=== PATIENT | male | born 1940 | race Caucasian/White ===

== ENCOUNTER 2017-04-03 11:57 | Inpatient (IN) | payer MEDICARE ==
[2017-04-03] VITALS (10 sets, daily range): BP systolic 137–159; BP diastolic 58–83; PULSE 59–73; RESP 16–21; O2SAT 94–99
[~2017-04-03] VITALS: Ht 172.7 cm; Wt 96.8 kg
[~2017-04-03 11:57] MED LIST: ASPI-973 PO; CARV12.52 PO; CARV25TA2 PO; DILT120T3 PO; FURO40TA4 PO; GARL10002 PO; INSU100V27 SQ; ISOS30TA PO; LEVO100T6 PO; MULT-1018 PO; OMEG1CAP99 PO; OXYM30SP3 NS; PRV40T PO; SPIR50TA2 PO; ZYL100 PO
--- NOTE | 2017-04-03 12:23 | ED.REPORT ---
HPI-Altered Mental Status Date of Service Apr 03, 2017 ED Provider: Eze Glover MD Patient is a 76 year old male with a history of hypertension, diabetes and [place] who presents to the ED via EMS due to decreased level of consciousness. Associated symptoms include decreased PO intake over the past three days, generalized weakness, headache and vomiting. He denies diarrhea, urinary problems, fever or abdominal pain. Per EMS, the patient has been increasing weak and collapsed on the floor. Limited history due to patient's mental status. Nursing Notes Stated Complaint: DECREASED LOC Chief Complaint: General Complaint Nursing Notes Reviewed: Yes Allergies: Coded Allergies: No Known Allergies (Verified , 01/18/08) Scheduled Allopurinol (Allopurinol) 100 Mg Tablet 200 MG PO QAM Aspirin (Aspirin) 81 Mg Tablet 81 MG PO QAM Carvedilol (Carvedilol) 25 Mg Tablet 25 MG PO QAM CARVEDILOL 25 MG IN AM & 12.5 MG AT HS Carvedilol (Carvedilol) 12.5 Mg Tablet 12.5 MG PO HS CARVEDILOL 25 MG IN AM & 12.5 MG AT HS Diltiazem (Diltiazem) 120 Mg Tablet 120 MG PO QAM Furosemide (Furosemide) 40 Mg Tablet 120 MG PO QAM LASIX 120 MG IN AM & 80 MG IN AFTERNOON Furosemide (Furosemide) 40 Mg Tablet 80 MG PO DAILYWD LASIX 120 MG IN AM & 80 MG IN AFTERNOON Garlic (Garlic) 1,000 Mg Capsule 1,000 MG PO DAILY Insulin Regular, Human (Novolin-R U100 Insulin Vial) 100 Unit/1 Ml Vial 50-60 UNITS SQ BIDWM Levothyroxine (Levothyroxine) 100 Mcg Tablet 100 MCG PO QAM Multivitamin (Multi Vitamin Daily) 1 Each Tablet 1 EACH PO DAILYWD [place]-3 Fatty Acids/Fish Oil (Fish Oil 1,200 mg Softgel) 1 Each Capsule 2 CAPSULE PO QAM Pravastatin (Pravachol) 40 Mg Tab 40 MG PO HS Spironolactone (Spironolactone) 25 Mg Tablet 25 MG PO QAM Scheduled PRN Tramadol (Tramadol) 50 Mg Tablet 25 MG PO Q6H PRN PRN For Pain General Time Seen by MD: 12:19 Chief Complaint Disoriented Hx Obtained From: Patient, EMS Unable to Obtain Hx: Patient condition, Mental status Arrived By: Ambulance Sudden in Onset?: No Onset Occurred: 3 days ago Symptom Duration: Since onset Location: : Head Quality: Painful Severity: Current: Moderate Similar Sx Previous: No Past Medical History Past Medical History [place] Reports: Diabetes mellitus, Hypertension Past Surgical History triple bypass Smoking History Unknown if Ever Smoker Social History Other Social History: Ambulatory Status Independent Review of Systems Review of Systems Note: Limited ROS due to patient's mental status Constitutional: Reports: Weakness - generalized GI: Reports: Vomiting, Denies: Abdominal pain, Diarrhea Neurologic: Reports: Change LOC, Headache, Denies: Bladder dysfunction Complete sys rev & neg: except as marked. Male: Denies Dysuria, Denies Incontinence Physical Exam Initial Vital Signs Vital Signs (First) Date Time Temp Pulse Resp B/P Pulse Ox O2 Delivery O2 Flow Rate FiO2 04/03/17 12:23 36.5 62 21 152/58 99 Room Air Initial VS: Reviewed General/Constitutional: Awake, Alert Head / Eyes: Atraumatic, Normocephalic, PERRL, EOMI Neck: Atraumatic, Supple Respiratory / Chest: Atraumatic, Breath sounds = bilat, No respiratory distress midline thoracotomy scar tachypneic Heart Rate / Rhythm: Positive: Irreg irregular rhythm no gross neuro deficits not oriented to year ENT: Atraumatic Mouth: Positive: Mucous membranes dry Abdomen: Atraumatic, Soft, Non-tender, BS normoactive Skin: Atraumatic, Color NL, No rash, Warm, Dry Upper Extremity / MS: Atraumatic, Neurologic intact, Vascular intact Lower Extremity / Pelvis / MS: Atraumatic, Neurologic intact, Vascular intact Interpretation & Diagnostics Lab Results Interpretation Result Diagram: 04/03/17 1230 04/03/17 1230 Test 04/03/17 12:30 04/03/17 13:00 04/03/17 14:00 White Blood Count 8.9th/mm3 (3.8-10.1) Red Blood Count 4.54mil/mm3 (4.40-5.80) Hemoglobin 15.3g/dL (13.8-17.2) Hematocrit 42.0% (41.0-50.0) Mean Corpuscular Volume 92.5fL (81-100) Mean Corpuscular Hemoglobin 33.7pg (27.0-35.0) Mean Corpuscular Hemoglobin Concent 36.4% (32.0-37.0) Red Cell Distribution Width 15.2% (12.3-15.4) Platelet Count 161bil/L (150-400) Neutrophils (%) (Auto) 81.3% (40-74) Lymphocytes (%) (Auto) 12.0% (14-46) Monocytes (%) (Auto) 5.7% (4-12) Eosinophils (%) (Auto) 0.2% (0-5) Basophils (%) (Auto) 0.1% (0-3) Sodium Level 125mEq/L (134-144) Potassium Level 5.4mEq/L (3.5-5.2) Chloride Level 69mEq/L (97-108) Carbon Dioxide Level 16mmol/L (18-29) Blood Urea Nitrogen 266mg/dL (8-27) Creatinine 7.40mg/dL (0.76-1.27) Estimat Glomerular Filtration Rate 8mL/min (>59) Glucose Level 393mg/dL (60-99) Calcium Level 9.0mg/dL (8.5-10.1) Magnesium Level 3.9mg/dL (1.6-2.6) Total Bilirubin 1.2mg/dL (0.0-1.2) Aspartate Amino Transf (AST/SGOT) 25U/L (0-50) Alanine Aminotransferase (ALT/SGPT) 12U/L (0-44) Alkaline Phosphatase 95U/L (25-160) Total Protein 8.2g/dL (6.4-8.4) Albumin 4.0g/dL (3.4-5.0) Alcohols < 10mg/dL (0-10) Urine Color Yellow (YELLOW) Urine Appearance Turbid (CLEAR,HAZY) Urine pH 5.0 (5.0-8.0) Urine Specific [place] 1.025 (1.003-1.035) Urine Protein 100mg/dL (NEG,TRACE) Urine Glucose (UA) Negativemg/dL (NEGATIVE) Urine Ketones Tracemg/dL (NEGATIVE) Urine Occult Blood Large (NEGATIVE) Urine Nitrite Negative (NEGATIVE) Urine Bilirubin Negative (NEGATIVE) Urine Urobilinogen Normalmg/dL (NORMAL) Urine Leukocyte Esterase Moderate (NEGATIVE) Urine RBC 3-10/hpf (0-2) Urine WBC >50/hpf (0-5) Urine Epithelial Cells Moderate/hpf (NONE-MOD) Urine Crystals None seen (NONE SEEN) Urine Bacteria Many/hpf (NONE-FEW) Urine Hyaline Casts None/lpf (NONE) Urine Granular Casts None seen (NONE SEEN) Urine Waxy Casts None seen (NONE SEEN) Urine Red Blood Cell Casts None seen (NONE SEEN) Urine White Blood Cell Casts None seen (NONE SEEN) Urine Mucus None seen (None Seen) Urine Trichomonas None seen (NONE SEEN) Urine Yeast None (NONE SEEN) Urinalysis Comment None Urine Culture Reflexed Indicated Lactic Acid Level 2.1mmol/L (0.4-2.0) Lab Results Interpretation: Labs from 08/17: Creatinine of 2.49 BUN 52 ECG Interpretation ECG Interpretation: atrial fibrillation rate 72 left anterior fasicular block no acute ST changes Time: 12:47 Interpreted by: ED physician X-Ray Chest Interpretation Chest Xray Interpretation: IMPRESSION: 1. Pulmonary vascular prominence suggesting mild edema. Dictated by: Jeremie Feliciano M.D. on 04/03/2017 at 13:07 Approved by: Jeremie Feliciano M.D. on 04/03/2017 at 13:08 View: Portable, 1 view Interpretation / Wet Read by: Interpret - Radiologist CT Head Interpretation IMPRESSION: 1. Markedly limited study due to motion artifact. 2. No definite acute intracranial abnormality. If clinical concern persists, consider a repeat study when clinically feasible. 3. Chronic white matter small vessel ischemic changes and cerebral volume loss. 4. Extensive thomas-sinus mucosal disease with air-fluid levels suggestive of acute sinusitis. Dictated by: Jeremie Feliciano M.D. on 04/03/2017 at 14:31 Approved by: Jeremie Feliciano M.D. on 04/03/2017 at 14:33 Interpretation / Wet Read by: Interpret - Radiologist CT Abd / Pelvis Interpretation IMPRESSION: 1. No evidence of hydronephrosis. 2. Bilateral renal cortical thinning and extensive ossification of the renal arteries. 3. Bilateral renal cysts. 4. Small right lower lobe indeterminate pulmonary nodules. If clinically indicated, recommend followup dedicated chest CT in 6 months. 5. Mild bladder wall thickening suggesting a nonspecific cystitis or sequelae of chronic bladder outlet obstruction. Mild submucosal fat deposition is also noted in the bladder wall compatible with sequelae of prior inflammatory change. Dictated by: Jeremie Feliciano M.D. on 04/03/2017 at 14:49 Approved by: Jeremie Feliciano M.D. on 04/03/2017 at 14:53 Interpretation / Wet Read by: Interpret - Radiologist Re-Eval/Medical Decision Med Decision/Clinical Course 76 year old male with chronic renal failure presents encephalopathic with acute decrease in renal function and UTI. He is also hyponatremic and has elevated mag and glucose. Blood and urine cultures obtained. NS 1L IV then 100cc/hr until nephrology evaluation. Rocephin 2g IV. Will admit to monitored bed, may need dialysis. Re-Evaluation/Progress : Re-Evaluation/Progress Note: Discussed results and plan for admit. Patient understands and agrees to plan. All questions were addressed. Consultation #1: Referral / Consult Name: Jyoti Jackson MD Consulted With: Nephrology Call Returned at: 13:50 Note: Consult with Dr. Love, who recommends the patient have an abdomen/pelvis CT to rule out obstruction Consultation #2: Referral / Consult Name: JUNE BAUMANN DO Consulted With: Hospitalist Call Returned at: 14:30 Manager Culture: Agrees with eval, Agrees with plan, Accepts admit Counseled Regarding: Diagnosis, Lab results, Need for admission Patient Discharge & Departure Impression: Primary Impression: Acute renal failure Acute renal failure type: unspecified Qualified Code: N17.9 - Acute kidney failure, unspecified Additional Impressions: Altered mental status Altered mental status type: disorientation Qualified Code: R41.0 - Disorientation, unspecified Urinary tract infection Urinary tract infection type: acute cystitis Hematuria presence: without hematuria Qualified Code: N30.00 - Acute cystitis without hematuria Hyponatremia Disposition: ADMITTED TO HOSPITAL Discharge Condition All VS Reviewed: Yes Condition: Stable Referrals: OTHER,PHYSICIAN (PCP) Scribe Attestation Portions of this note were transcribed by Mandy Lim I, Dr. Glover personally performed the history, physical exam and medical decision-making; I reviewed and confirmed the accuracy of the information in the transcribed note. Signed by: Earle Calderón, 04/03/17. Eze Glover MD Apr 03, 2017 12:23 Anne Lim Apr 03, 2017 12:34
[2017-04-03] MEDS ORDERED: 0.9% Sodium Chloride 1,000 ML IV ONE (12:30)
[2017-04-03 13:02] LABS: BASOPHILS % (AUTO) 0.1 % (0-3); EOSINOPHILS % (AUTO) 0.2 % (0-5); MONOCYTES % (AUTO) 5.7 % (4-12); Mean Corpuscular Hemoglobin 33.7 pg (27.0-35.0); Mean Corpuscular Volume 92.5 fL (81-100); NEUTROPHILS % (AUTO) 81.3 % (40-74); Platelet Count 161 bil/L (150-400)
--- NOTE | 2017-04-03 13:09 | DRSVH ---
PROCEDURE: X-RAY CHEST ONE VIEW, PORTABLE ([id number]) INDICATIONS: altered mental status TECHNIQUE: One view of the chest was acquired. COMPARISON: [facility], , CHEST 2VW, 06/21/2011, 8:30. FINDINGS: Surgical changes and devices: Postsurgical changes are redemonstrated in the mediastinum. Lungs and pleura: No pleural effusions or pneumothorax. There is pulmonary vascular prominence sugg esting mild edema. No focal consolidation. Mediastinum: Mediastinal contours appear unchanged. Heart size is enlarged. Bones and chest wall: No suspicious bony lesions. Overlying soft tissues appear unremarkable. IMPRESSION: 1. Pulmonary vascular prominence suggesting mild edema. Dictated by: Jeremie Feliciano M.D. on 04/03/2017 at 13:07 Approved by: Jeremie Feliciano M.D. on 04/03/2017 at 13:08
[2017-04-03 13:34] LABS: Magnesium 3.9 mg/dL (1.6-2.6)
[2017-04-03] MEDS ORDERED: 0.9% Sodium Chloride 1,000 ML IV SCH ×2 (13:55→15:55)
[2017-04-03 14:06] LABS: APPEARANCE,URINE TURBID (CLEAR,HAZY); COLOR,URINE YELLOW (YELLOW); OCCULT BLOOD,URINE LARGE (NEGATIVE); UROBILINOGEN,URINE NORMAL (NORMAL)
[2017-04-03] MEDS ORDERED: cefTRIAXone Inj 2,000 MG in Dextrose 5% Minibag Plus 50 ML IV ONE (14:35)
--- NOTE | 2017-04-03 14:35 | DRSVH ---
PROCEDURE: CT BRAIN WITHOUT CONTRAST ([id number]) INDICATIONS: altered mental status TECHNIQUE: Noncontrast 4.5 mm thick angled axial sections acquired from the foramen magnum to the vertex, with c oronal reformats. COMPARISON: None. FINDINGS: Image quality: There is motion artifact markedly limiting evaluation. CSF spaces: Basal cisterns are patent. No extra-axial fluid collections. The ventricles are symmet kalia in size and shape. There is moderate cerebral volume loss, with resultant ventricular and sulcal prominence. Brain: No definite intracranial hemorrhage, mass, or mass effect. There are subcortical, periventri cular and deep white matter hypodensities consistent with moderate chronic small vessel ischemic kearns ges. There is intracranial internal carotid artery atherosclerosis. Skull and face: Calvarium and visualized facial bones appear intact, without suspicious lesions. Sinuses: Visualized sinuses demonstrate partial mucosal opacification of the frontal, ethmoid, maxil shantelle, and sphenoid sinuses with scattered air-fluid levels. Mastoid air cells are clear. IMPRESSION: 1. Markedly limited study due to motion artifact. 2. No definite acute intracranial abnormality. If clinical concern persists, consider a repeat stud y when clinically feasible. 3. Chronic white matter small vessel ischemic changes and cerebral volume loss. 4. Extensive thomas-sinus mucosal disease with air-fluid levels suggestive of acute sinusitis. Dictated by: Jeremie Feliciano M.D. on 04/03/2017 at 14:31 Approved by: Jeremie Feliciano M.D. on 04/03/2017 at 14:33
--- NOTE | 2017-04-03 14:55 | DRSVH ---
PROCEDURE: CT ABDOMEN AND PELVIS WITHOUT CONTRAST ([id number]) INDICATIONS: acute on chronic renal failure TECHNIQUE: After the administration of oral contrast, 5 mm thick sections acquired from the diaphragms to the sy mphysis. 5 mm coronal and sagittal reformats were performed. For radiation dose reduction, the foll owing was used: automated exposure control, adjustment of mA and/or kV according to patient size. COMPARISON: [facility], CT, CT CHEST ABD PELVIS WO CON, 10/20/2015, 12:55. FINDINGS: Image quality: Excellent. ABDOMEN: Lung bases: There is mild dependent atelectasis and scarring bilaterally in the lung bases there are 2 small indeterminate right lower lobe pulmonary nodules measuring up to 3 mm not definitely seen on the prior study.. Heart size is enlarged. There is prominent coronary artery vascular calcificatio n. There are posterior changes in mediastinum compatible prior CABG. A small hiatal hernia is prese nt. Solid organs: Liver and spleen are normal in size. Gallbladder demonstrates calcified gallstones wi thout wall thickening or pericholecystic fluid. Pancreas is normal in size. There is thickening of the adrenal glands bilaterally without discrete nodules. The kidneys demonstrate renal cortical thin shayne bilaterally without hydronephrosis. There are extensive calcifications of the renal arteries. Nonspecific perinephric stranding is again noted bilaterally. There bilateral renal cysts as well as smaller low-density foci likely representing cysts. Peritoneum and bowel: Bowel loops demonstrate normal wall thickness and caliber. There is colonic d iverticulosis without acute diverticulitis. No free fluid or air. Nodes and vessels: No retroperitoneal or mesenteric adenopathy by size criteria. Aorta and inferior vena cava are normal in size. There is extensive atherosclerotic vascular calcification. Miscellaneous: No ventral hernias. PELVIS: Genitourinary: The urinary bladder is partially distended with mild concentric bladder wall thickenin g. There is submucosal fat deposition within the bladder wall suggesting sequelae of prior inflammat ory changes. Miscellaneous: No inguinal hernias or adenopathy. Bones: No suspicious bony lesions. No vertebral body compression fractures. IMPRESSION: 1. No evidence of hydronephrosis. 2. Bilateral renal cortical thinning and extensive ossification of the renal arteries. 3. Bilateral renal cysts. 4. Small right lower lobe indeterminate pulmonary nodules. If clinically indicated, recommend [facility] dedicated chest CT in 6 months. 5. Mild bladder wall thickening suggesting a nonspecific cystitis or sequelae of chronic bladder out let obstruction. Mild submucosal fat deposition is also noted in the bladder wall compatible with seq uelae of prior inflammatory change. Dictated by: Jeremie Feliciano M.D. on 04/03/2017 at 14:49 Approved by: Jeremie Feliciano M.D. on 04/03/2017 at 14:53
[2017-04-03] MEDS: Lactated Ringer's 1,000 ML IV SCH ×2 (14:56→22:08)
[2017-04-03] MEDS ORDERED: Alum-Mag Hydrox-Simeth 30 mL Suspension PO PRN (15:00)
[2017-04-03] MEDS ORDERED: FURO40TA4 PO (15:01)
[2017-04-03] MEDS ORDERED: SPIR25TA3 PO (15:04)
[2017-04-03] MEDS ORDERED: TRAM50TA2 PO (15:07)
--- NOTE | 2017-04-03 15:42 | NUR ---
Admit Pt arrived to the unit at 1530. He was brought by buster by ED staff and transferred to the bed via slide board. Vital signs and weight were checked. Pt alert and oriented to self only. Appearing drowsy, and nodding off. IV fluids infusing and increased rate to give a 500ml bolus over a hour per MD order. He denies pain. is present at the bedside.
[2017-04-03] MEDS: cefTRIAXone Inj 1,000 MG in Dextrose 5% Minibag Plus 50 ML IV SCH (16:00)
[2017-04-03] MEDS ORDERED: Glucose 40% Oral Gel 15 Gm Tube PO PRN (16:00)
[2017-04-03] MEDS: Diltiazem CD 120 mg ER24 Capsule PO SCH (16:02)
--- NOTE | 2017-04-03 16:02 | PCM.HPMED ---
Subjective Date of Service Apr 03, 2017 Primary Provider: Admitting Physician: Primary Care Physician: Other,Physician Attending Physician: Admit Status: From the Emergency Department, Admit to [facility] Team Chief Complaint: Altered mental status History of Present Illness: Mr. Figueroa is a 76-year-old male with past medical history of chronic kidney disease, diabetes mellitus type II, hyperlipidemia, hypothyroidism, CAD status post triple bypass 2000, thrombocytopenia who presented to the ED via EMS secondary to decreased level of consciousness. Per who was present in the room at time of interview patient has been feeling weaker and sicker over the last month with a progressive decrease in his oral intake. During this time his diet has had to be transitioned to soft foods only which he either does not eat much of or vomits the meal back up. These episodes of emesis have only recently started in the last week but have gotten much worse over the last 3 days. reports patient has vomited 3 times per day over the last 3 days and has not been able to eat or drink anything, she states that the emesis looks brownish almost like "blood". He has also had decreased urinary output over the last month and significantly over the last 3 days, he has not taken any of his regular prescribed occasions including his diuretics. His urine is said to have a dark brown color at home. Patient's also states that he has become more "muddled" in his thought process he is able to answer most questions appropriately during interview though there is a significant time lapse between question and answer which patient's states is very unusual for him. He denies chest pain, shortness of breath, headache or visual disturbances. He does state some abdominal pain and persistent nausea. He has not had a bowel movement in 3 days though denies any diarrhea over the last month. Nephrology was counseled by ED physician, normal saline started as well as abdominal pelvis CT. Antibiotics were started for suspected UTI source. Patient was last seen by his tobacco checkout clerk Dr. Stearns one month ago. Does not know who his primary care physician is states he goes to the [place] is [facility] in [place]. Review of Systems: A comprehensive review of systems was conducted with the patient and found to be negative except as above in the history of present illness. Allergies Coded Allergies: No Known Allergies (Verified , 01/18/08) Home Medications provided current medication list as follows: Allopurinol 100 mg 2 in the morning Carvedilol 12.5 mg 2 in the morning Diltiazem 120 mg daily Furosemide 120 mg in the morning Levothyroxine 100 g daily Pravastatin 40 mg daily Spironolactone 25 mg daily NovoLog insulin sliding scale Detemir insulin sporadically Tramadol one half tablet of 25 mg Additional medication which could not be remembered at time of interview, awaiting [facility] Diabetes mellitus type II Hyperlipidemia Hypothyroidism Coronary artery disease status CABG 2000 Thrombocytopenia Surgical History Bilateral shoulder surgery 1980s Triple-vessel CABG 2000 Reports last colonoscopy 3 years ago Family History Mother at the age of 42 with aneurysm. Father, sister, brother all diabetes mellitus type II Social History Hx Alcohol Use: Yes (sober, quit in does not state he was every heavy drinker) Hx Substance Use: No Hx Tobacco Use: Yes (quit in before that 1 pack per day) Smoking Status: Former Smoker, Unknown if Ever Smoker Living Arrangement: with Family Exam Vital Signs Vital Sign - Last Date Time Temp Pulse Resp B/P Pulse Ox O2 Delivery O2 Flow Rate FiO2 04/03/17 14:54 64 19 137/60 95 Room Air 04/03/17 12:23 36.5 Exam General: Awake and alert lying in hospital bed in no acute distress, well- developed, well-nourished, able to answer questions mostly appropriately. present at bedside HEENT: Normocephalic, atraumatic. External ears without defect. Pupils constricted equal, round, and reactive to light and accommodation. Anicteric sclerae, moist conjunctivae, and no lid lag. Dry mucosa white film on tongue. Neck: Supple with full range of motion. No jugular venous distension. No bruits. Cardiovascular: Irregularly irregular rhythm with regular rate. No murmurs appreciated Pulmonary: Clear to auscultation bilaterally with no crackles, wheezes, or rhonchi. Midline thoracotomy scar Abdomen: Obese abdomen Bowel tones present. Soft, tender to palpation right upper quadrant nondistended. No hepatosplenomegaly or masses appreciated. Extremities: No clubbing, cyanosis, edema. Bilateral shoulder surgery scars well-healed Skin: Normal temperature, poor turgor. Multiple ecchymotic patches on bilateral upper extremities. Neurological: Cranial nerves grossly intact. Psychiatric: Somnolent affect. Alert to year, place and situation. Not alert to date Lab and Diagnostics Result Diagram: 04/03/17 1230 04/03/17 1230 X-Rays, CTs and MRIs . X-RAY CHEST ONE VIEW, PORTABLE IMPRESSION: 1. Pulmonary vascular prominence suggesting mild edema. Dictated by: Jeremie Feliciano M.D. on 04/03/2017 CT BRAIN WITHOUT CONTRAST IMPRESSION: 1. Markedly limited study due to motion artifact. 2. No definite acute intracranial abnormality. If clinical concern persists, consider a repeat study when clinically feasible. 3. Chronic white matter small vessel ischemic changes and cerebral volume loss. 4. Extensive thomas-sinus mucosal disease with air-fluid levels suggestive of acute sinusitis. Dictated by: Jeremie Feliciano M.D. on 04/03/2017 CT ABDOMEN AND PELVIS WITHOUT CONTRAST IMPRESSION: 1. No evidence of hydronephrosis. 2. Bilateral renal cortical thinning and extensive ossification of the renal arteries. 3. Bilateral renal cysts. 4. Small right lower lobe indeterminate pulmonary nodules. If clinically indicated, recommend followup dedicated chest CT in 6 months. 5. Mild bladder wall thickening suggesting a nonspecific cystitis or sequelae of chronic bladder outlet obstruction. Mild submucosal fat deposition is also noted in the bladder wall compatible with sequelae of prior inflammatory change. Dictated by: Jermeie Feliciano M.D. on 04/03/2017 12-lead ECG Atrial fibrillation Left anterior fascicular block No acute ST abnormalities Possible abnormal T wave pathology Assessment & Plan Mr. Figueroa is a 76-year-old male with past medical history of chronic kidney disease, diabetes mellitus type II, hyperlipidemia, hypothyroidism, CAD status post triple bypass 2000, thrombocytopenia who presented to the ED via EMS secondary to decreased level of consciousness, admitted for acute on chronic kidney injury with multiple electrolyte. Hospital day 1 Acute on chronic kidney injury. Present on admission. Ongoing -Most likely secondary to dehydrated state, decreased oral intake and emesis -Dr. Love nephrology consultation from ED, continue fluid hydration, HD cath placement -Continue allopurinol -Held diuretics Atrial fibrillation. Present admission, unknown chronicity Ongoing. -EKG shows atrial fibrillation, confirmed with physical exam -Currently rate controlled in the 60s with normotensive blood pressure -Continue Coreg 12.5 at bedtime, 25 mg every morning -Continue diltiazem Hyponatremia, POA. Ongoing -Normal saline 100 mL per hour Electrolyte abnormalities, POA. Ongoing -Nephrology following, HD cath placement today followed by HD -Continue to monitor Urinary tract infection, POA. Ongoing -Appropriate cultures and serologies pending -Continue ceftriaxone pending cultures -Continue to monitor Possible upper GI bleed, POA. Ongoing -Patient's reports 1-2 brown-colored emesis -No signs of bleeding -Protonix twice a day -Continue to monitor, consider GI consult if Sx develop -Nothing by mouth, advance diet if no manifestation of symptoms Lactic acidosis, POA. Ongoing -Likely secondary to dehydrated state as above -Continue to monitor Diabetes mellitus type II, POA. Ongoing -Hold home meds -A1c pending -Correctional scale Hypothyroidism, POA. Ongoing -Continue home levothyroxine CODE STATUS: Patient is DNR/DNI discussed with patient and at bedside. Patient Status: Patient was admitted under inpatient status with expected length of stay greater than two midnights due to severity of presenting symptoms , risk of adverse event, and complexity of treatment plan. GI Prophylaxis: Proton Pump Inhibitor VTE Prophylaxis: SCDs Resuscitation Status: DNR/DNI:Do Not Resuscitate/Intubate Attending Statement The patient was seen and examined together with Dr. Morris on 04/03/2017 and I agree with the history, exam and plan as outlined in the note above. . JUNE MORRIS DO Apr 03, 2017 14:59 Artem Baron MD Apr 03, 2017 16:22
[2017-04-03] MEDS ORDERED: Dextrose 10% 250 ML IV PRN ×2 (16:15→21:15)
[2017-04-03] MEDS ORDERED: Pantoprazole 4 mg/mL 10 mL Inj IVPUSH SCH (16:30)
[2017-04-03] MEDS: Pantoprazole 40 mg ER24 Tablet PO SCH (16:30)
[2017-04-03] MEDS: Insulin LISPRO 300 Unit/3 mL Inj SUBQ SCH ×2 (17:30→22:07)
--- NOTE | 2017-04-03 17:36 | CONS ---
[address] [address] CONSULTATION REPORT PATIENT: ALONDRA OLMOS : 1940 MR#: [id number] ADMIT: 04/03/2017 JOB ID: [id number] DATE OF SERVICE: 04/03/2017 REQUESTING PHYSICIAN: Dr. Artem Baron. REASON FOR CONSULTATION: Management of acute kidney injury. CHIEF COMPLAINT: Altered mental status and weakness. PRESENT ILLNESS: This is a 76-year-old, male with significant past medical history of longstanding type 2 diabetes complicated by neuropathy, nephropathy and retinopathy, hypertension, CHF, coronary artery disease, status post CABG, dyslipidemia, history of severe thrombocytopenia who presented to the hospital due to worsening malaise and altered mental status. The patient is not able to give me a meaningful history. I have obtained history from his . According to his , the patient has had poor appetite over the past one month. Over the past three days, the patient has not eaten anything. He has poor fluid intake. He has had recurrent nausea, vomiting over the past three days as well. She reports that he feels cold easily but no subjective fever. The vomitus looks like brownish secretion, but no gross blood noticed. His reported that his urine output has been low over the past three days as well. She reports discolorations of urine which was brownish. His also reported that his mental status has been declining over the past three days. Today, he became more confused and not coherent. The initial blood work showed WBC of 8.9, hemoglobin of 15.3, BUN of 266 and creatinine of 7.4. Sodium of 125, potassium of 5.4. The patient received IV fluid normal saline to 1 L in the emergency department. His initial vitals were within normal limits. Blood pressure was 152/58. His pulse ox was 99% on room air. The CT with contrast did not show any hydronephrosis, but showed bilateral renal cortical thinning. The UA revealed over 50 WBCs, 3-10 RBCs, many bacteria. Of note, the patient has been on Lasix and Aldactone for the CHF. He is the patient of Dr. Wilkerson. Last visit with him was about a month ago and he was told to return to the clinic in six weeks. According to his , he has stage 3 kidney disease related to diabetes. The patient reports no history of NSAID use. PAST MEDICAL HISTORY: 1. Longstanding type 2 diabetes complicated by nephropathy, retinopathy, and neuropathy. 2. Hypertension. 3. Coronary artery disease, status post CABG. 4. History of diabetic foot ulcers. 5. Gout. 6. Dyslipidemia. 7. Status post left toe amputation. 8. History of severe thrombocytopenia, resolved. 9. History of CHF. Last echocardiogram reported in our system was in 2010. His ejection fraction was 25% to 30%. We do not have recent echocardiogram available. PAST SURGICAL HISTORY: 1. Status post CABG in 2000. 2. Bilateral shoulder surgery in . 3. Status post left big toe amputation. FAMILY HISTORY: No kidney disease in the family. Positive for diabetes in the family. Mother at age 42 with aneurysm. SOCIAL HISTORY: He is a remote smoker. He has quit drinking and smoking for at least 30 years. ALLERGIES: No known drug allergies. MEDICATION: 1. Allopurinol. 2. Aspirin. 3. Carvedilol. 4. Diltiazem. 5. Furosemide. 6. Garlic. 7. Levothyroxine. 8. Pravastatin. 9. Spironolactone. 10. Tramadol. REVIEW OF SYSTEMS: Unable to obtain due to decline in mental status. PHYSICAL EXAMINATION: Vitals: Temperature 36.5, respiratory 18, blood pressure 156/72, O2 sat 99% on room air. General appearance: Drowsy but arousable. Responsive to painful stimuli. HEENT: Atraumatic, dry mucous membranes. No JVD. No lymphadenopathy. No thyroid enlargement. Heart: Regular rate, rhythm. Normal S1, S2. Distant heart sounds. Lungs decreased breath sounds at bases. No wheezing. No rhonchi. Gynecomastia noted. Abdomen is soft, active bowel sounds. Obese, nontender, nondistended. No hepatosplenomegaly. Extremities: No significant lower extremity swelling. Poor dorsalis pedis pulses. LABORATORY: Sodium 125, potassium 5.4, chloride 69, bicarb 16, BUN 266, creatinine 7.4, lactic acid 2.1. ASSESSMENT: 1. Acute kidney injury superimposed CKD-3 secondary to prolonged prerenal azotemia leading to acute tubular necrosis (ATN), and complicated urinary tract infection. He has a very high BUN. We will order stool occult blood to rule out gastrointestinal bleed. I will order a CPK level to rule out rhabdomyolysis. 2. Electrolyte disturbance including hyponatremia, hyperkalemia and metabolic acidosis secondary to severe renal insufficiency. 3. Persistent nausea, vomiting. 4. Complicated urinary tract infection. 5. Intravascular volume depletion. 6. History of longstanding type 2 diabetes complicated by neuropathy, nephropathy and retinopathy. 7. History of coronary artery disease. 8. History of congestive heart failure. PLAN: 1. Will check CPK level. 2. Check a stool occult blood. 3. Continue IV hydration. 4. We will arrange for an urgent hemodialysis. 5. Hold diuretics. 6. Repeat echocardiogram. Thank you for allowing me to participate in the care of your patient. We will monitor along with you. JEROME
[2017-04-03 17:47] LABS: INR 1.13 ratio
[2017-04-03 18:08] LABS: TROPONIN T 0.097 ug/L (0.0-0.011)
--- NOTE | 2017-04-03 18:32 | PCM.PROC ---
Procedure Note Date of Service: Apr 03, 2017 Pre Procedure Diagnosis: TALHA Post Procedure Diagnosis: TALHA Procedure: Temporary HD catheter placement Indication for Procedure: Emergency HD Procedural Analgesia: Local anesthesia Procedure Details: Consent: Detailed explanation of the procedure, treatment options, risks including but not limited to infection and bleeding, and benefits were explained to his . A written informed consent was obtained. Technique: A time out was preformed identifying the correct procedure, the correct location with the nursing staff. The right neck was prepped with 2% chlorhexidine and draped with a full length sterile sheet in the usual fashion. 1% lidocaine was administered subcutaneously for local anesthesia. The right internal jugular vein was accessed under ultrasound guidance with an 18 gauge thin wall needle. A Mahurkar catheter was inserted via the seldinger technique. Blood was withdrawn from all lumens and flushed with normal saline. The catheter was sutured in place and a sterile dressing was applied over the site prior to removal of drapes. The patient tolerated the procedure well and there were no complications. Chest x ray was obtained. No immediate complications identified. Catheter can be used. EBL: 5 mL. Complication: None. Jyoti Jackson MD Apr 03, 2017 18:32
--- NOTE | 2017-04-03 19:10 | DRSVH ---
PROCEDURE: X-RAY CHEST ONE VIEW, PORTABLE ([id number]) INDICATIONS: LINE PLACEMENT TECHNIQUE: One view of the chest was acquired. COMPARISON: [facility], CR, CHEST 2VW, 06/21/2011, 8:30. [facility], CR, XR CHEST 1VW (PORTABLE), 04/03/2017, 12:38. FINDINGS: Surgical changes and devices: There is in the right internal jugular intravenous catheter with the ti p at the cavoatrial junction. Postsurgical changes are redemonstrated in the mediastinum Lungs and pleura: There is increased opacity at the left base suggestive of a left pleural effusion, consolidation, or atelectasis. Right lung is clear. No evidence of pneumothorax. Mediastinum: Mediastinal contours appear unchanged. Heart size is enlarged. Bones and chest wall: No suspicious bony lesions. Overlying soft tissues appear unremarkable. IMPRESSION: 1. No evidence of pneumothorax. 2. Increased left basilar opacity suggestive of pleural effusion, consolidation, or atelectasis. Dictated by: Jeremie Feliciano M.D. on 04/03/2017 at 18:47 Approved by: Jeremie Feliciano M.D. on 04/03/2017 at 19:08
--- NOTE | 2017-04-03 21:10 | NUR ---
Dialysis note: S/P catheter placement 2 hrs tx Zero net UF Right temp catheter, dsg changed, sutures intact Hepatitis serologies drawn Pls see DTR for VS details Qb 250 Heparin prime given O2 @ 2L via NC on during the tx Tolerated tx, slept at intervals Catheter flushed, heparin dwelled and secured Stable condition at end of tx Report given to Taina DIEGO
[2017-04-04] VITALS (10 sets, daily range): BP systolic 116–142; BP diastolic 59–77; PULSE 57–75; RESP 16–20; O2SAT 94–96
--- NOTE | 2017-04-04 03:14 | NUR ---
HD//Mentation Patient was receiving HD at 1900 when received report, patient transferred back into room 2019 about 0, tolerated HD well, scheduled for HD in AM per report, A&Ox2 to person and place, did not know date, resting in bed this shift but unable to fall asleep, calm and cooperative, NPO, patient stated he isn't too tired, repositioned Q2H, 300ml out from urinary catheter, at bedside sleeping on sofa, no distress noted, VSS. Addendum: 04/04/17 at 0319 by LIZY ALMEIDA RN Amended: Links added.
[2017-04-04 04:46] LABS: BASOPHILS % (AUTO) 0.1 % (0-3)
[2017-04-04 04:49] LABS: EOSINOPHILS % (AUTO) 0.8 % (0-5); MONOCYTES % (AUTO) 9.8 % (4-12); Mean Corpuscular Hemoglobin 33.5 pg (27.0-35.0); Mean Corpuscular Volume 93.1 fL (81-100); NEUTROPHILS % (AUTO) 82.2 % (40-74); Platelet Count 136 bil/L (150-400)
[2017-04-04] MEDS: Insulin LISPRO 300 Unit/3 mL Inj SUBQ SCH ×4 (08:23→21:30)
[2017-04-04] MEDS: Pantoprazole 40 mg ER24 Tablet PO SCH ×2 (08:23→16:53)
--- NOTE | 2017-04-04 09:39 | NUR ---
Transfer for dialysis Patient transferred to [facility] for dialysis. Report received from Hanh Yoo RN. kit planner at bedside controlling leaking insertion site of tunnel cath. plumbing technician notified.
--- NOTE | 2017-04-04 10:47 | PCM.PNNEPH ---
Subjective Date of Service Apr 04, 2017 Subjective First HD started last night, no complication during HD. (+) oozing and blood clot at the catheter site. Bleeding stopped. He is seen during 2nd HD today. He reported that he is feeling the same. U/cx grew GNR. Exam Vital Signs Vital Sign - Last Date Time Temp Pulse Resp B/P Pulse Ox O2 Delivery O2 Flow Rate FiO2 04/04/17 08:57 70 04/04/17 08:00 36.8 16 142/68 95 04/04/17 08:00 Supplement Oxygen Intake and Output 04/03/17 04/03/17 04/04/17 Cumulative From/Thru 15:00 23:00 07:00 04/03/17 12:23 - 04/04/17 05:44 Intake Total 1035 ml 600 ml 0 ml 1635 ml Output Total 0 ml 300 ml 300 ml Balance 1035 ml 600 ml -300 ml 1335 ml Intake Oral 0 ml 0 ml 0 ml IV Total 1035 ml 600 ml 1635 ml Output Urine Total 0 ml 300 ml 300 ml Ultrafiltrate 0 ml 0 ml Exam General appearance: Weak, more alert today and awake. HEENT: Atraumatic, dry mucous membranes. No JVD. No lymphadenopathy. No thyroid enlargement. Heart: Irregular rate, rhythm. Normal S1, S2. Distant heart sounds. Lungs decreased breath sounds at bases. No wheezing. No rhonchi. Gynecomastia noted. Abdomen is soft, active bowel sounds. Obese, nontender, nondistended. No hepatosplenomegaly. Extremities: No significant lower extremity swelling. Poor dorsalis pedis pulses. s/p left first toe amputation. Skin: Temporary right IJ HD catheter in place, no active bleeding. Lab and Diagnostics Result Diagram: 04/04/1743904/04/17439 X-Rays, CTs and MRIs . X-RAY CHEST ONE VIEW, PORTABLE IMPRESSION: 1. Pulmonary vascular prominence suggesting mild edema. Dictated by: Jeremie Feliciano M.D. on 04/03/2017 CT BRAIN WITHOUT CONTRAST IMPRESSION: 1. Markedly limited study due to motion artifact. 2. No definite acute intracranial abnormality. If clinical concern persists, consider a repeat study when clinically feasible. 3. Chronic white matter small vessel ischemic changes and cerebral volume loss. 4. Extensive thomas-sinus mucosal disease with air-fluid levels suggestive of acute sinusitis. Dictated by: Jeremie Feliciano M.D. on 04/03/2017 CT ABDOMEN AND PELVIS WITHOUT CONTRAST IMPRESSION: 1. No evidence of hydronephrosis. 2. Bilateral renal cortical thinning and extensive ossification of the renal arteries. 3. Bilateral renal cysts. 4. Small right lower lobe indeterminate pulmonary nodules. If clinically indicated, recommend followup dedicated chest CT in 6 months. 5. Mild bladder wall thickening suggesting a nonspecific cystitis or sequelae of chronic bladder outlet obstruction. Mild submucosal fat deposition is also noted in the bladder wall compatible with sequelae of prior inflammatory change. Dictated by: Jeremie Feliciano M.D. on 04/03/2017 12-lead ECG Atrial fibrillation Left anterior fascicular block No acute ST abnormalities Possible abnormal T wave pathology Plan Impression ASSESSMENT: 1. Acute kidney injury superimposed CKD-3 secondary to ATN. 2.5 hr, BFR 250, DFR 500, 2K, 35HCO3. Revaclear, Right IJ, UF 500 ml. 2. Electrolyte disturbance including hyponatremia, hyperkalemia and metabolic acidosis secondary to severe renal insufficiency. 3. Persistent nausea, vomiting related to uremia and infection. 4. Complicated urinary tract infection. 5. Intravascular volume depletion. 6. History of longstanding type 2 diabetes complicated by neuropathy, nephropathy and retinopathy. 7. History of coronary artery disease. 8. History of congestive heart failure. 9. Atrial fibrillation. PLAN: 1. Echo pending. 2. Pending finalized culture. 3. Continue IV abx. 4. Next HD with UF ~ 0.5-1L in am. 5. Start renal diet. 6. D/c IVF. Jyoti Jackson MD Apr 04, 2017 10:47
[2017-04-04] MEDS: Lactated Ringer's 1,000 ML IV SCH ×3 (10:56→20:31)
--- NOTE | 2017-04-04 12:00 | NUR ---
Dialysis note: 2 1/2 hrs tx 500 ml net UF Right temp catheter, bleeding from exit site, Dr Love notified, dsg changed, no s/s of infection noted and sutures intact, pressure dsg and sandbag applied Pls see DTR for VS details Qb 250 Heparin prime only given O2 @ 2L via NC on during the tx Tolerated tx, slept at intervals Catheter flushed, heparin dwelled and secured Stable condition at end of tx Report given to [place] DIEGO
--- NOTE | 2017-04-04 12:32 | NUR ---
Transfer to 2019 Patient completed dialysis, see dialysis flow sheet for details. Report called to Hanh Yoo RN. Awaiting transport. Addendum: 04/04/17 at 1321 by ADRIANA RING RN Transported without incidence.
[2017-04-04] MEDS: Diltiazem CD 120 mg ER24 Capsule PO SCH (14:28)
--- NOTE | 2017-04-04 15:58 | NUR ---
Social Work Note: Initial Assessment Data& Assessment: EMR reviewed. COUNTY PROGRAM TECHNICIAN met with pt and pt at bedside to discuss discharge planning, COUNTY PROGRAM TECHNICIAN Role explained and discharge planning checklist packet provided. Clyde Figueroa is a 76 year old male admitted on 04/03/2017 acute renal failure. Nephrology is following. Pt has Medicare insurance coverage [facility], pt is not service connected. Pt lives in [place] with his spouse and is independent with all ADL's at baseline. Pt uses a [employer] and drives at baseline. He does not have HH hx but has been to [facility] three years ago. Pt does not have [facility] insurance. COUNTY PROGRAM TECHNICIAN requested a copy of pt's completed DPOA/AD paperwork which he states he has on file with the [facility]. MD does not identify any concerns for pt capacity for self care at this time. Pt and pt deny any needs at this time. COUNTY PROGRAM TECHNICIAN to continue to follow if any pt needs or MD orders arise. Plan: Anticipated discharge home via POV when medically ready. Pt and pt deny any needs at this time. COUNTY PROGRAM TECHNICIAN to continue to follow if any pt needs or MD orders arise. MELVIN Valente Addendum: 04/04/17 at 1608 by GENO CEJA Amended: Links added.
--- NOTE | 2017-04-04 16:16 | DRSVH ---
[facility] [address] [place] [address] Echocardiogram Report Name: ALONDRA OLMOS EStudy Date: 04/04/2017 Mazin t: 70 in Hospital Exam Location: [facility] Weigh t: 322 lb Gender: Male BSA: 2.5 m2 : 1940 Age: 76 yrs BP: 1 35/59 mmHg Reason For Study: Congestive Heart Failure, CAD, SEPSIS Ordering Physician: Shade Lawist Performed By: Siddharth Ram Referring Physician: JOYCELYN KIM Interpretation Summary The left ventricle is mild-moderately dilated. The ejection fraction is estimated to be 15-20%. Compared to the prior exam, the left ventricular function is reduced. The right ventricle is moderately dilated. Right ventricular systolic function is mild to moderately reduced. There is severe mitral regurgitation. Compared to the prior echo study, there has been an increase in the severity of mitral regurgitation. There is moderate tricuspid regurgitation. Compared to the prior echo exam, there has been an increase in TR severity. The right ventricular systolic pressure is estimated at 49 mmHg assuming a right atrial pressure of 8 mm Hg. Compared to the prior echo exam, there has been an increase in the severity of pulmonary hypertension. There is moderate pulmonary hypertension. Procedure: A two-dimensional transthoracic echocardiogram with color flow and Doppler was performed. The study quality was technically adequate. A contrast injection of Definity was performed to improve assessment of LV function. The patient was in atrial fibrillation with heart rates between 57- 84 bpm during the exam. Left Ventricle: There is normal left ventricular wall thickness. The left ventricle is mild-moderately dilated. There is no thrombus. The ejection fraction is estimated to be 15-20%. Compared to the prior exam, the left ventricular function is reduced. Except anterolateral and the posterolateral wall which has relatively preserved contractility rest of the LV segments are akinetic to severely hypokinetic. Compared to the prior exam, the left ventricular wall motion has not changed. Diastolic function could not be accurately assessed due to atrial fibrillation. Right Ventricle: The right ventricle is moderately dilated. Right ventricular systolic function is mild to moderately reduced. Atria: Both atria are severely dilated. Both atria have remained unchanged in size since the prior echo exam. The interatrial septum is intact with no evidence for an atrial septal defect. Mitral Valve: The mitral valve leaflets appear mildly thickened, but open well. There is mild mitral annular calcification. There is severe mitral regurgitation. Compared to the prior echo study, there has been an increase in the severity of mitral regurgitation. Aortic Valve: The aortic valve is trileaflet. The aortic valve opens well. There is mild aortic valve sclerosis. There is no aortic valve stenosis. No aortic regurgitation is present. Tricuspid Valve: The tricuspid annulus is dilated. There is moderate tricuspid regurgitation. The right ventricular systolic pressure is estimated at 49 mmHg assuming a right atrial pressure of 8 mm Hg. Compared to the prior echo exam, there has been an increase in TR severity. Compared to the prior echo exam, there has been an increase in the severity of pulmonary hypertension. There is moderate pulmonary hypertension. Pulmonic Valve: The pulmonic valve is not well seen, but is grossly normal. There is mild to moderate pulmonic regurgitation. Great Vessels: The aortic root is normal size. The ascending aorta is mildly enlarged. The pulmonary artery is normal size. The IVC is dilated (diameter is greater than 2.1 cm) yet it collapses greater than 50% with a sniff. This suggests a right atrial pressure of 8 mm Hg. Pericardium/ Pleura There is no pericardial effusion. There is an anterior echo-free space consistent with a fat pad. There is no pleural effusion. MMode/2D Measurements & Calculations LVIDd: 6.2 cm RA long axis LVOT diam LVIDs: 4.8 cm LA A2 area: 31.1 cm FS: 22.3 % LA A4 area: 33.1 cm RA area Ao root diam EPSS: 1.6 cm LA length (vol): 7.2 cm IVSd: 0.84 cm LA vol: 121.1 ml : 27.4 cm asc Aorta LVPWd: 1.2 cm LA vol index RA vol: 99.5 mlDiam: 3.8 cm RA : 39.8 mm2 IVC diam: 2.4 cm LV burks. diameter/BSA LV sys. diameter/BSA RVD1 (basal) (cm/m^2): 2.5 (cm/m^2): 1.9 Doppler Measurements & Calculations Ao V2 max: 88.7 cm/secMV E max luan Med Peak E' Luan TR max luna Ao max P.2 mmHg : 80.0 cm/sec : 319.7 cm/sec Ao mean P.8 mmHg E/E' med: 21.1 TR max PG LVOT Max Luan MR ERO: 0.37 cm2 Lat Peak E' Luan : 41.0 mmHg : 68.0 cm/sec PA V2 max E/E' lat: 22.4 : 71.4 cm/sec ALYSON(I,D): 2.1 cm E/e' average: 21.7 PA mean PG sev ratio: 0.70 : 1.1 mmHg Ao V2 mean LV V1 max PG MR flow rate PA V2 mean : 64.8 cm/sec : 48.0 cm/sec Ao V2 VTI: 15.4 cm LV V1 VTI : 179.0 cm3/sec : 10.8 cm MR PISA radius ALYSON(V,D): 2.3 cm2 ALYSON indexed to BSA (cm^2/m^2): 0.84 Reading Physician:ISA
[2017-04-04] MEDS: cefTRIAXone Inj 1,000 MG in Dextrose 5% Minibag Plus 50 ML IV SCH (16:53)
--- NOTE | 2017-04-04 20:26 | PCM.PNMED ---
Subjective Date of Service Apr 04, 2017 Subjective Subjective: Patient lying in bed on exam, states that he continues to feel well today. Events Overnight: No acute events overnight. ROS: Denies fever/chills, nausea/vomiting, headache, weakness, abdominal pain, chest pain, shortness of breath, increased swelling in hands or feet. Exam Vital Signs Vital Sign - Last Date Time Temp Pulse Resp B/P Pulse Ox O2 Delivery O2 Flow Rate FiO2 04/04/17 20:01 Supplement Oxygen 04/04/17 20:01 36.7 61 18 117/61 96 Intake and Output 04/03/17 04/03/17 04/04/17 Cumulative From/Thru 15:00 23:00 07:00 04/03/17 12:23 - 04/04/17 05:44 Intake Total 1035 ml 600 ml 0 ml 1635 ml Output Total 0 ml 300 ml 300 ml Balance 1035 ml 600 ml -300 ml 1335 ml Intake Oral 0 ml 0 ml 0 ml IV Total 1035 ml 600 ml 1635 ml Output Urine Total 0 ml 300 ml 300 ml Ultrafiltrate 0 ml 0 ml Exam General: No acute distress, well-developed, well-nourished Head: Normocephalic, atraumatic. External ears without defect. Eyes: Pupils equal, round, and reactive to light and accommodation. Anicteric sclerae, moist conjunctivae. Neck: Normal range of motion, no lymphadenopathy noted Cardiovascular: Irregularly irregular rhythm with no murmurs, rubs, or gallops appreciated Pulmonary: Clear to auscultation bilaterally with no crackles, wheezes, or rhonchi. Normal respiratory effort with no use of accessory muscles. Abdomen: Bowel tones present. Soft, right upper quadrant tenderness, nondistended. Extremities: No clubbing, cyanosis, edema Skin: Normal temperature, turgor, and texture; no rash, ulcers, or subcutaneous nodules appreciated. Neurological: Cranial nerves grossly intact. Reflexes, coordination, and sensory function within normal limits. Normal muscle strength, tone, and bulk. Psychiatric: Normal mood and affect. Alert and oriented to person, place, and time IVs and Medications Medications Reviewed: Medications were reviewed in detail Lab and Diagnostics Result Diagram: 04/04/1743904/04/17439 X-Rays, CTs and MRIs . X-RAY CHEST ONE VIEW, PORTABLE IMPRESSION: 1. Pulmonary vascular prominence suggesting mild edema. Dictated by: Jeremie Feliciano M.D. on 04/03/2017 CT BRAIN WITHOUT CONTRAST IMPRESSION: 1. Markedly limited study due to motion artifact. 2. No definite acute intracranial abnormality. If clinical concern persists, consider a repeat study when clinically feasible. 3. Chronic white matter small vessel ischemic changes and cerebral volume loss. 4. Extensive thomas-sinus mucosal disease with air-fluid levels suggestive of acute sinusitis. Dictated by: Jeremie Feliciano M.D. on 04/03/2017 CT ABDOMEN AND PELVIS WITHOUT CONTRAST IMPRESSION: 1. No evidence of hydronephrosis. 2. Bilateral renal cortical thinning and extensive ossification of the renal arteries. 3. Bilateral renal cysts. 4. Small right lower lobe indeterminate pulmonary nodules. If clinically indicated, recommend followup dedicated chest CT in 6 months. 5. Mild bladder wall thickening suggesting a nonspecific cystitis or sequelae of chronic bladder outlet obstruction. Mild submucosal fat deposition is also noted in the bladder wall compatible with sequelae of prior inflammatory change. Dictated by: Jeremie Feliciano M.D. on 04/03/2017 12-lead ECG Atrial fibrillation Left anterior fascicular block No acute ST abnormalities Possible abnormal T wave pathology Assessment & Plan Mr. Figueroa is a 76-year-old male with past medical history of chronic kidney disease, diabetes mellitus type II, hyperlipidemia, hypothyroidism, CAD status post triple bypass 2000, thrombocytopenia who presented to the ED via EMS secondary to decreased level of consciousness, admitted for acute on chronic kidney injury with multiple electrolyte. Acute on chronic kidney injury. Present on admission. Ongoing -Most likely secondary to dehydrated state, decreased oral intake and emesis -Dr. Love nephrology consultation from ED, HD cath placement on 04/03, temporary dialysis initiated 04/04 -Continue allopurinol -Hold diuretics Atrial fibrillation. Present admission, unknown chronicity Ongoing. -EKG shows atrial fibrillation, confirmed with physical exam -Currently rate controlled in the 60s with normotensive blood pressure -Continue Coreg 12.5 at bedtime, 25 mg every morning -Continue diltiazem -Discuss outpatient anticoagulation Electrolyte abnormalities, POA. Ongoing -Nephrology following, HD cath placement 04/03 followed by HD on 04/04 -Continue to monitor with morning labs Urinary tract infection, POA. Ongoing -Culture shows gram-negative rods, likely Escherichia coli sensitivities pending -Continue ceftriaxone pending cultures -Continue to monitor Possible upper GI bleed, POA. Ongoing -Patient's reports 1-2 brown-colored emesis -No signs of bleeding -Protonix twice a day -Continue to monitor, consider GI consult if Sx develop -Advance diet as tolerated Lactic acidosis, POA. Resolved -Likely secondary to dehydrated state as above -Continue to monitor Hyponatremia, POA. Resolved -Normal saline discontinued Diabetes mellitus type II, POA. Ongoing -Hold home meds -A1c 8.5 -Correctional scale Hypothyroidism, POA. Ongoing -Continue home levothyroxine CODE STATUS: Patient is DNR/DNI discussed with patient and at bedside. Disposition: Patient will likely require 1-2 more nights of inpatient stay prior to discharge home. GI Prophylaxis: Proton Pump Inhibitor VTE Prophylaxis: SCDs VTE Mechanical Devices: Intermittant Pneumatic CD Resuscitation Status: DNR/DNI:Do Not Resuscitate/Intubate Attending Statement The patient was seen and examined together with Dr. New on 04/04/17 and I have added additional information to the note above. Joe New DO Apr 04, 2017 20:26 Nereida Beaulieu DO Apr 10, 2017 15:22
[2017-04-05] VITALS (9 sets, daily range): BP systolic 111–149; BP diastolic 54–94; PULSE 51–76; RESP 16–20; O2SAT 94–98
[2017-04-05 03:39] LABS: BASOPHILS % (AUTO) 0 % (0-3); EOSINOPHILS % (AUTO) 1.5 % (0-5); MONOCYTES % (AUTO) 12.2 % (4-12); Mean Corpuscular Hemoglobin 33.5 pg (27.0-35.0); Mean Corpuscular Volume 96.2 fL (81-100); NEUTROPHILS % (AUTO) 72.8 % (40-74); Platelet Count 109 bil/L (150-400)
[2017-04-05 04:07] LABS: Magnesium 2.5 mg/dL (1.6-2.6); Phosphorus 5.9 mg/dL (2.5-4.9)
--- NOTE | 2017-04-05 04:12 | NUR ---
CV/Resp/ Patient rested in bed, pleasant and cooperative, at bedside, VSS, uneventful shift, right IJ HD catheter dressing has old drainage and no new drainage noted overnight, assists with turns, 1 med BM this shift, will continue to monitor. Addendum: 04/05/17 at 1185 by LIZY ALMEIDA RN Amended: Links added.
[2017-04-05] MEDS: Ondansetron 2 mg/mL 2 mL Inj IVPUSH PRN ×3 (07:37→15:36)
[2017-04-05] MEDS: Pantoprazole 40 mg ER24 Tablet PO SCH ×2 (08:31→16:00)
[2017-04-05] MEDS: Insulin LISPRO 300 Unit/3 mL Inj SUBQ SCH ×4 (08:35→20:54)
[2017-04-05] MEDS ORDERED: Insulin GLARgine 100 Unit/mL Syringe SUBQ ONE (08:55)
--- NOTE | 2017-04-05 08:58 | PCM.PNMED ---
Subjective Date of Service Apr 05, 2017 Subjective The patient was said to be more somnolent this morning. However he did arouse and answer questions in the presence of his . He did know he was in the hospital but thought it was 2021. He denies any chest pain, or shortness of breath. No abdominal pain. He has a mild headache. He is able to move arms and legs. He is due for his third dialysis session today. No other overnight events noted. Exam Vital Signs Vital Sign - Last Date Time Temp Pulse Resp B/P Pulse Ox O2 Delivery O2 Flow Rate FiO2 04/05/17 07:41 36.4 63 16 149/74 96 Room Air Intake and Output 04/04/17 04/04/17 04/05/17 Cumulative From/Thru 15:00 23:00 07:00 04/03/17 12:23 - 04/05/17 06:16 Intake Total 0 ml 300 ml 1935 ml Output Total 500 ml 150 ml 150 ml 1100 ml Balance -500 ml -150 ml 150 ml 835 ml Intake Oral 0 ml 300 ml 300 ml IV Total 1635 ml Output Urine Total 150 ml 150 ml 600 ml Ultrafiltrate 500 ml 500 ml # Bowel Movements 1 1 Exam Alert and oriented to place, person but not year. He has fluent speech. No facial muscle asymmetry. Moves arms and legs. Anicteric sclera. Lungs are clear with normal rate and effort Heart is regular without murmur gallop or rub Abdomen soft nontender, flat Extremities are free of edema. Skin is free of rash or lesions. He has a right IJ dialysis catheter in place IVs and Medications Medications Reviewed: Medications were reviewed in detail Lab and Diagnostics Result Diagram: 04/05/17 0300 04/05/17 0300 X-Rays, CTs and MRIs . X-RAY CHEST ONE VIEW, PORTABLE IMPRESSION: 1. Pulmonary vascular prominence suggesting mild edema. Dictated by: Jeremie Feliciano M.D. on 04/03/2017 CT BRAIN WITHOUT CONTRAST IMPRESSION: 1. Markedly limited study due to motion artifact. 2. No definite acute intracranial abnormality. If clinical concern persists, consider a repeat study when clinically feasible. 3. Chronic white matter small vessel ischemic changes and cerebral volume loss. 4. Extensive thomas-sinus mucosal disease with air-fluid levels suggestive of acute sinusitis. Dictated by: Jeremie Feliciano M.D. on 04/03/2017 CT ABDOMEN AND PELVIS WITHOUT CONTRAST IMPRESSION: 1. No evidence of hydronephrosis. 2. Bilateral renal cortical thinning and extensive ossification of the renal arteries. 3. Bilateral renal cysts. 4. Small right lower lobe indeterminate pulmonary nodules. If clinically indicated, recommend followup dedicated chest CT in 6 months. 5. Mild bladder wall thickening suggesting a nonspecific cystitis or sequelae of chronic bladder outlet obstruction. Mild submucosal fat deposition is also noted in the bladder wall compatible with sequelae of prior inflammatory change. Dictated by: Jeremie Feliciano M.D. on 04/03/2017 12-lead ECG Atrial fibrillation Left anterior fascicular block No acute ST abnormalities Possible abnormal T wave pathology Assessment & Plan Mr. Figueroa is a 76-year-old male with past medical history of chronic kidney disease, diabetes mellitus type II, hyperlipidemia, hypothyroidism, CAD status post triple bypass 2000, thrombocytopenia who presented to the ED via EMS secondary to decreased level of consciousness, admitted for acute on chronic kidney injury with multiple electrolyte. Acute on chronic kidney injury. Present on admission. Ongoing and active -Most likely secondary to dehydrated state, decreased oral intake and emesis -Dr. Love nephrology consultation from ED, HD cath placement on 04/03, temporary dialysis initiated 04/04 -Continue allopurinol -Hold diuretics Patient goes for his third dialysis this morning. We will follow up with nephrology. Atrial fibrillation. Present admission, unknown chronicity Ongoing and rate controlled. -EKG shows atrial fibrillation, confirmed with physical exam -Currently rate controlled in the 60s with normotensive blood pressure -Continue Coreg 12.5 at bedtime, 25 mg every morning -Continue diltiazem -Discuss outpatient anticoagulation Hyperphosphatemia, present on admission. Ongoing and active -Nephrology following, HD cath placement 04/03 followed by HD on 04/04 -Continue to monitor with morning labs Urinary tract infection with pansensitive Escherichia coli, present on admission. Ongoing -Culture shows gram-negative rods, likely Escherichia coli sensitivities pending -Continue ceftriaxone at 1 g IV every 24 hours -Continue to monitor Possible upper GI bleed, present on admission. Improved, with stable hematocrit. -Patient's reports 1-2 brown-colored emesis -No signs of bleeding -Protonix twice a day -Continue to monitor, consider GI consult if Sx develop -Advance diet as tolerated Lactic acidosis, present on admission. Resolved -Likely secondary to dehydrated state as above -Continue to monitor Hyponatremia, present on admission. Resolved -Normal saline discontinued Diabetes mellitus type II, present on admission. Ongoing and uncontrolled -Hold home meds -A1c pending -Correctional scale lispro Will add Tenormin Lantus now and 10 daily at bedtime scheduled Hypothyroidism, present on admission. Ongoing -Continue home levothyroxine CODE STATUS: Patient is DNR/DNI discussed with patient and at bedside. Disposition: Patient will require several more days of inpatient services. The situation was discussed in detail at bedside with his today. GI Prophylaxis: Proton Pump Inhibitor VTE Prophylaxis: SCDs VTE Mechanical Devices: Intermittant Pneumatic CD Resuscitation Status: DNR/DNI:Do Not Resuscitate/Intubate Farzad Guajardo MD Apr 05, 2017 08:58
[2017-04-05] MEDS ORDERED: 0.9% Sodium Chloride 500 ML IV ONE (09:50)
[2017-04-05] MEDS ORDERED: DESMOPRESSIN IV ONE (09:50)
[2017-04-05] MEDS ORDERED: SODIUM CHLORIDE 0.9% IV ONE (09:50)
--- NOTE | 2017-04-05 11:16 | NUR ---
Dialysis Note pt presented to dialysis in stable condition, resting with eyes closed, A&Ox1, no c/o pain, easily aroused to touch and sound pressure dressing to right IJ CVC, pt experienced bleeding from site on previous dialysis, dressing was marked on the previous night and bleeding seems to have stopped access CVC, heparin aspirated, both port flush and aspirate with ease heparin 1000 units/ml administered treatment started without difficulty MD at bedside and new order given for no fluid removal, 500ml NS bolus and desmopressin 21mg, ammonia level stat, orders noted and scanned to pharmacy, lab drawn NS bolus desmopressin administered dressing to right CVC changed, dressing intact with old blood present, no bleeding noted from site, old blood present at site, site cleaned with chloraprep, no signs of infection noted and tegaderm dressing applied, pt tolerated well, will continue to monitor for bleeding Addendum: 04/05/17 at 1311 by RUBINA BURNETT RN 3.0 total treatment time 0 net total removed blood sugar 125, pt refused meals pt tolerated treatment well no bleeding noted at CVC site treatment ended, blood returned , both ports flushed with ease and locked with heparin, caps secured pt was beginning to respond to yes/no questions by nodding report called to Wilmer DIEGO, returned to room in stable condition
--- NOTE | 2017-04-05 11:16 | PCM.PNNEPH ---
Subjective Date of Service Apr 05, 2017 Subjective I have reviewed the patient's chart and appreciate Dr. Love's initial consultation and evaluation on him. He has a history of chronic kidney disease stage III/and in August his serum creatinine was about 2.6 mg/dL. He was admitted to [facility] several days ago for about a weeklong history of nausea, vomiting, decreased oral intake, and progressive decline in his mentation. In the emergency room his creatinine was 7 and his BUN was 266. He was seen by nephrology and out catheter was placed and he has been dialyzed several times since that time. Laboratory values have improved to 1 and creatinine today of 96 and 3.9 respectively. His blood pressures have been in the 90 to low 100 range and he appears to not had much intake by mouth. This morning during my evaluation the patient was arousable but did not answer any questions and could not engage in any meaningful conversation. There has been some persistent oozing around the internal jugular insertion site. This morning his sodium is 138, potassium 4.2, chloride 94, bicarbonate 20, BUN and creatinine were 96 and 3.9 respectively. Exam Vital Signs Vital Sign - Last Date Time Temp Pulse Resp B/P Pulse Ox O2 Delivery O2 Flow Rate FiO2 04/05/17 09:13 51 04/05/17 07:41 36.4 16 149/74 96 Room Air Intake and Output 04/04/17 04/04/17 04/05/17 Cumulative From/Thru 15:00 23:00 07:00 04/03/17 12:23 - 04/05/17 06:16 Intake Total 0 ml 300 ml 1935 ml Output Total 500 ml 150 ml 150 ml 1100 ml Balance -500 ml -150 ml 150 ml 835 ml Intake Oral 0 ml 300 ml 300 ml IV Total 1635 ml Output Urine Total 150 ml 150 ml 600 ml Ultrafiltrate 500 ml 500 ml # Bowel Movements 1 1 Exam HEENT examination is remarkable for bilateral pale sclera and bitemporal wasting. Cornea, conjunctiva, pupils were within normal limits. His perioral mucous membranes appear to be dry. Neck is supple without adenopathy, thyromegaly, or jugular venous distention. Lungs are clear to auscultation though he has very minimal respiratory effort noted. Heart was regular and rhythmical with a soft systolic murmur. Abdomen is soft without any tenderness rebound guarding masses or hepatosplenomegaly. Extremities do not show any evidence of any clubbing, cyanosis, or edema however [id number] nails were noted. Skin turgor is diminished. However there is no evidence of any rashes or purpura. Lab and Diagnostics Result Diagram: 04/05/17 0300 04/05/17 030 X-Rays, CTs and MRIs . X-RAY CHEST ONE VIEW, PORTABLE IMPRESSION: 1. Pulmonary vascular prominence suggesting mild edema. Dictated by: Jeremie Feliciano M.D. on 04/03/2017 CT BRAIN WITHOUT CONTRAST IMPRESSION: 1. Markedly limited study due to motion artifact. 2. No definite acute intracranial abnormality. If clinical concern persists, consider a repeat study when clinically feasible. 3. Chronic white matter small vessel ischemic changes and cerebral volume loss. 4. Extensive thomas-sinus mucosal disease with air-fluid levels suggestive of acute sinusitis. Dictated by: Jeremie Feliciano M.D. on 04/03/2017 CT ABDOMEN AND PELVIS WITHOUT CONTRAST IMPRESSION: 1. No evidence of hydronephrosis. 2. Bilateral renal cortical thinning and extensive ossification of the renal arteries. 3. Bilateral renal cysts. 4. Small right lower lobe indeterminate pulmonary nodules. If clinically indicated, recommend followup dedicated chest CT in 6 months. 5. Mild bladder wall thickening suggesting a nonspecific cystitis or sequelae of chronic bladder outlet obstruction. Mild submucosal fat deposition is also noted in the bladder wall compatible with sequelae of prior inflammatory change. Dictated by: Jeremie Feliciano M.D. on 04/03/2017 12-lead ECG Atrial fibrillation Left anterior fascicular block No acute ST abnormalities Possible abnormal T wave pathology Plan Impression Impression #1 acute on chronic kidney injury secondary to dehydration which is resolving number to uremic encephalopathy #3 diabetic nephropathy #4 hypertension with hypertensive heart disease and hypertensive nephrosclerosis. #5 uremic bleeding Recommendation: #1 patient will be dialyzed today for 3 hours on a standard dialyzer, 300 blood flow, 600 dialysate flow, dialysate temperature 36.5, 3 potassium, 137 sodium, 35 bicarbonate, and also heparin. I will also have the nurse give him 21 g of DDAVP during his treatment for uremic bleeding and will not be any fluid removed and I have asked the nurse to give him 500 mL cyst saline during his treatment. I will also like to start him on a maintenance IV and will assess his renal function for the next several days. Bennett,Tenzin D DO Apr 05, 2017 11:16
[2017-04-05] MEDS: cefTRIAXone Inj 1,000 MG in Dextrose 5% Minibag Plus 50 ML IV SCH (15:51)
[2017-04-05] MEDS: Diltiazem CD 120 mg ER24 Capsule PO SCH (15:53)
--- NOTE | 2017-04-05 16:09 | NUR ---
[facility] TRANSFER NEW : Gave access and faxed facesheet to [facility] per [employer] and orders. Addendum: 04/05/17 at 1609 by SIMBA VALVERDE CM [facility]
--- NOTE | 2017-04-05 16:10 | NUR ---
Social Work: Continued Discharge Planning/Multidisciplinary Rounds D: Pt discussed in multidisciplinary rounds; the patient is not medically stable for discharge at this time. Attending and resident providers both agree pt will likely require SNF at discharge and have placed referral for CM to arrange for SNF. PRIVATE WATCHMAN acknowledges order and met with the patient at bedside to discuss recommendations. At this time, the patient is hopeful that he will be able to progress to be able to go home. He is also agreeable to allowing PRIVATE WATCHMAN make referral to [facility] (his preference for facilities) in case he does not progress the way he expects. SNF CHOICE LIST PROVIDED. Pt has a history at [facility] and states that this is the closest facility to his home and would be willing to return if needed. Utilitization Specialist has placed referral to [facility]. They are reviewing. PPW on chart. PASSR in folder A: Pt who previously was living at home with [place] P: Evolving; [facility] is reviewing for SNF admission. Pt hopes to be able to progress to a home plan but is agreeable to SNF referral. PRIVATE WATCHMAN to continue to follow pt's clinical progress. MELVIN Rutledge
--- NOTE | 2017-04-05 19:20 | NUR ---
Nausea/LOC/Oliguric Cardiac: Pt denies CP, Tele: Afib 50-60 Resp: Pt denies SOB, SPO2 98% on RA GI/: Pt denies n/v/d, reports mild abdominal pain, Dr alfredo. No BM since 04/01, Perdomo draining brown/leticia urine to gravity, only 100ml out today, pt encouraged to drink, but pt does not take PO when nurse is not in room. IV fluids ordered at end of shift. Pt complains of mild nausea this AM, Zofran given prior to dialysis. Poor appetite. Neuro: A&O x2, self and place. Pt difficult to rouse this morning and not oriented. Eventually able to get to A&Ox3. Pt is very somnolent and responds mostly with yes or no answerers. Dr gabriel notified of change in LOC from yesterday and came to assess before pt went off to dialysis. Pt more alert this afternoon, able to verbally respond beyond yes and no, but very somnolent.
[2017-04-05] MEDS: 0.9% Sodium Chloride 1,000 ML IV SCH (19:54)
[2017-04-05] MEDS ORDERED: Insulin GLARgine 100 Unit/mL Syringe SUBQ SCH (21:00)
[2017-04-06] VITALS (8 sets, daily range): BP systolic 118–133; BP diastolic 57–69; PULSE 52–62; RESP 16–18; O2SAT 92–97
[2017-04-06 03:18] LABS: BASOPHILS % (AUTO) 0.1 % (0-3); EOSINOPHILS % (AUTO) 1.7 % (0-5); MONOCYTES % (AUTO) 13.4 % (4-12); Mean Corpuscular Hemoglobin 33.5 pg (27.0-35.0); Mean Corpuscular Volume 98.2 fL (81-100); NEUTROPHILS % (AUTO) 70.6 % (40-74); Platelet Count 87 bil/L (150-400)
[2017-04-06 03:45] LABS: Phosphorus 4.2 mg/dL (2.5-4.9)
[2017-04-06] MEDS: Ondansetron 2 mg/mL 2 mL Inj IVPUSH PRN (09:17)
[2017-04-06] MEDS: 0.9% Sodium Chloride 1,000 ML IV SCH (09:18)
[2017-04-06] MEDS: Diltiazem CD 120 mg ER24 Capsule PO SCH (09:18)
[2017-04-06] MEDS: Pantoprazole 40 mg ER24 Tablet PO SCH ×2 (09:18→16:28)
[2017-04-06] MEDS: Insulin LISPRO 300 Unit/3 mL Inj SUBQ SCH ×4 (09:29→21:46)
--- NOTE | 2017-04-06 11:12 | PCM.PNNEPH ---
Subjective Date of Service Apr 06, 2017 Subjective The patient is considerably more alert and awake today compared to yesterday. He is tolerating cautious IV hydration and his had some increase in his urine output. His BUN and creatinine also continued to improve. He states that for about a week or so before his admission he had been feeling weak, fatigued, anorectic, when some nausea and vomiting. He denies use of any concomitant acetaminophen or nonsteroidal anti-inflammatories. Today he states he is feeling a bit better and denies any chest pain nausea or vomiting. He has had for 35 in and 270 out for the last 24 hours and started him on 400 and in urine today. His systolic blood pressures have ranged between 120 and 130 range. His ammonia level was 29, sodium 141, potassium 4.1, chloride 97, bicarbonate 21 , BUN and creatinine were 45 and 3.0 and his PTH was 79. I personally spell on and did his urine today and found scattered granular casts, moderate red cells without red cell casts and a few WBCs. Exam Vital Signs Vital Sign - Last Date Time Temp Pulse Resp B/P Pulse Ox O2 Delivery O2 Flow Rate FiO2 04/06/17 10:32 60 04/06/17 08:54 36.6 16 130/60 96 Room Air Intake and Output 04/05/17 04/05/17 04/06/17 Cumulative From/Thru 15:00 23:00 07:00 04/03/17 12:23 - 04/06/17 06:00 Intake Total 135 ml 1100 ml 3170 ml Output Total 0 ml 120 ml 400 ml 1620 ml Balance 0 ml 15 ml 700 ml 1550 ml Intake Oral 75 ml 100 ml 475 ml IV Total 60 ml 1000 ml 2695 ml Output Urine Total 100 ml 400 ml 1100 ml Emesis 20 ml 20 ml Ultrafiltrate 0 ml 500 ml # Bowel Movements 0 0 1 Exam HEENT examination is remarkable for pale sclera and some mild bitemporal wasting. Mucous membranes appear to be somewhat dry. Neck is supple without adenopathy, thyromegaly, or jugular venous distention. Lungs are clear to auscultation. Heart is regular and rhythmical with a soft systolic murmur. Abdomen is soft without any tenderness or rebound guarding masses or hepatosplenomegaly. Extremities and Rahul evidence of any clubbing, cyanosis , or edema.halh and half Nails were noted. Skin turgor is good and there is no evidence of any rashes. Lab and Diagnostics Result Diagram: 04/06/1722904/06/17 023 X-Rays, CTs and MRIs . X-RAY CHEST ONE VIEW, PORTABLE IMPRESSION: 1. Pulmonary vascular prominence suggesting mild edema. Dictated by: Jeremie Feliciano M.D. on 04/03/2017 CT BRAIN WITHOUT CONTRAST IMPRESSION: 1. Markedly limited study due to motion artifact. 2. No definite acute intracranial abnormality. If clinical concern persists, consider a repeat study when clinically feasible. 3. Chronic white matter small vessel ischemic changes and cerebral volume loss. 4. Extensive thomas-sinus mucosal disease with air-fluid levels suggestive of acute sinusitis. Dictated by: Jeremie Felicaino M.D. on 04/03/2017 CT ABDOMEN AND PELVIS WITHOUT CONTRAST IMPRESSION: 1. No evidence of hydronephrosis. 2. Bilateral renal cortical thinning and extensive ossification of the renal arteries. 3. Bilateral renal cysts. 4. Small right lower lobe indeterminate pulmonary nodules. If clinically indicated, recommend followup dedicated chest CT in 6 months. 5. Mild bladder wall thickening suggesting a nonspecific cystitis or sequelae of chronic bladder outlet obstruction. Mild submucosal fat deposition is also noted in the bladder wall compatible with sequelae of prior inflammatory change. Dictated by: Jeremie Feliciano M.D. on 04/03/2017 12-lead ECG Atrial fibrillation Left anterior fascicular block No acute ST abnormalities Possible abnormal T wave pathology Plan Impression Impression #1 acute on chronic kidney injury which is resolving #2 dehydration # 3 uremic encephalopathy which is resolving number for diabetic nephropathy #5 hypertension with hypertensive heart disease and hypertensive nephrosclerosis Recommendation #1 I would like to continue his IV fluids of normal saline at 100 mL's per hour and continue to monitor his intake, output, and lab values. If his renal function continues to improve I will be removing the temporary dialysis cath in the next several days. Tenzin Bennett DO Apr 06, 2017 11:12
--- NOTE | 2017-04-06 15:06 | NUR ---
CVC dressing change old dressing removed, dried blood present, site also covered in old clotted blood, cleaned site with chloraprep x3, site benign, no bleeding noted, no signs of infection present, sterile dressing applied. pt tolerated well, notified Wilmer RN to monitor for any more bleeding
--- NOTE | 2017-04-06 16:23 | PCM.PNMED ---
Subjective Date of Service Apr 06, 2017 Subjective 76-year-old man with type II diabetes mellitus, coronary artery disease and CK D presents with acute kidney failure, hyponatremia and encephalopathy. Mental status has improved markedly. States he still feels lethargic and mildly anorexic. No dyspnea or orthopnea. Last bowel movement was 1-2 days ago with no GI bleeding noted. Exam Vital Signs Vital Sign - Last Date Time Temp Pulse Resp B/P Pulse Ox O2 Delivery O2 Flow Rate FiO2 04/06/17 12:09 36.9 62 18 121/61 97 Room Air Intake and Output 04/05/17 04/05/17 04/06/17 Cumulative From/Thru 15:00 23:00 07:00 04/03/17 12:23 - 04/06/17 06:00 Intake Total 135 ml 1100 ml 3170 ml Output Total 0 ml 120 ml 400 ml 1620 ml Balance 0 ml 15 ml 700 ml 1550 ml Intake Oral 75 ml 100 ml 475 ml IV Total 60 ml 1000 ml 2695 ml Output Urine Total 100 ml 400 ml 1100 ml Emesis 20 ml 20 ml Ultrafiltrate 0 ml 500 ml # Bowel Movements 0 0 1 Exam General: Elderly man, alert, no acute distress HEENT: sclerae anicteric, oral mucosa moist, Neck: Saturated bandage right-sided IJ hemodialysis catheter Chest: clear to auscultation Cardiac: S1S2, no murmur Abdomen: BS normal, non-tender Extremities: Trace pedal edema Neuro: A&O but slightly sluggish, cranial nerves symmetric, motor strength 5/5, coordination normal IVs and Medications Medications Reviewed: Medications were reviewed in detail Lab and Diagnostics Result Diagram: 04/06/17 0230 04/06/17 0230 X-Rays, CTs and MRIs . X-RAY CHEST ONE VIEW, PORTABLE IMPRESSION: 1. Pulmonary vascular prominence suggesting mild edema. Dictated by: Jeremie Feliciano M.D. on 04/03/2017 CT BRAIN WITHOUT CONTRAST IMPRESSION: 1. Markedly limited study due to motion artifact. 2. No definite acute intracranial abnormality. If clinical concern persists, consider a repeat study when clinically feasible. 3. Chronic white matter small vessel ischemic changes and cerebral volume loss. 4. Extensive thomas-sinus mucosal disease with air-fluid levels suggestive of acute sinusitis. Dictated by: Jeremie Feliciano M.D. on 04/03/2017 CT ABDOMEN AND PELVIS WITHOUT CONTRAST IMPRESSION: 1. No evidence of hydronephrosis. 2. Bilateral renal cortical thinning and extensive ossification of the renal arteries. 3. Bilateral renal cysts. 4. Small right lower lobe indeterminate pulmonary nodules. If clinically indicated, recommend followup dedicated chest CT in 6 months. 5. Mild bladder wall thickening suggesting a nonspecific cystitis or sequelae of chronic bladder outlet obstruction. Mild submucosal fat deposition is also noted in the bladder wall compatible with sequelae of prior inflammatory change. Dictated by: Jeremie Feliciano M.D. on 04/03/2017 12-lead ECG Atrial fibrillation Left anterior fascicular block No acute ST abnormalities Possible abnormal T wave pathology Assessment & Plan Mr. Figueroa is a 76-year-old male with past medical history of chronic kidney disease, diabetes mellitus type II, hyperlipidemia, hypothyroidism, CAD status post triple bypass 2000, thrombocytopenia who presented to the ED via EMS secondary to decreased level of consciousness, admitted for acute on chronic kidney injury with multiple electrolyte. Acute on chronic kidney injury. Present on admission. Ongoing and active -Most likely secondary to dehydrated state, decreased oral intake and emesis -Dr. Love nephrology consultation from ED, HD cath placement on 04/03, temporary dialysis initiated 04/04 -Hemodialysis per nephrology service -Continue allopurinol -Hold diuretics Atrial fibrillation. Present admission, unknown chronicity Ongoing and rate controlled. -EKG shows atrial fibrillation, confirmed with physical exam -Currently rate controlled in the 60s with normotensive blood pressure -Continue Coreg 12.5 at bedtime, 25 mg every morning -Continue diltiazem -Patient is currently having uremic bleeding, we will defer outpatient anticoagulation Hyperphosphatemia, present on admission. Ongoing and active -Nephrology following, HD cath placement 04/03 followed by HD on 04/04 -Continue to monitor with morning labs Urinary tract infection with pansensitive Escherichia coli, present on admission. Ongoing -Culture shows greater than 100,000 CFU of pansensitive Escherichia coli -Continue ceftriaxone at 1 g IV every 24 hours Possible upper GI bleed, present on admission. Improved, with stable hematocrit. -Patient's reports 1-2 brown-colored emesis but not clearly coffee-ground -No signs of bleeding -Protonix twice a day -Advance diet as tolerated Lactic acidosis, present on admission. Resolved -Likely secondary to dehydrated state as above -Continue to monitor Hyponatremia, present on admission. Resolved. Serum sodium 125 on admission. -Resolved Diabetes mellitus type II, present on admission. Ongoing and uncontrolled. Hemoglobin A1c 8.5% -Increase bedtime glargine from 10 up to 20 units -Continue Correctional scale lispro - Add nutritional insulin on 04/07 if continued hyperglycemia Hypothyroidism, present on admission. Ongoing -Continue home levothyroxine CODE STATUS: Patient is DNR/DNI discussed with patient and at bedside. Disposition: Patient will require several more days of inpatient services. The situation was discussed in detail at bedside with his today. GI Prophylaxis: Proton Pump Inhibitor VTE Prophylaxis: SCDs VTE Mechanical Devices: Intermittant Pneumatic CD Resuscitation Status: DNR/DNI:Do Not Resuscitate/Intubate Time spent 40 minutes Nehemias Lara MD Apr 06, 2017 16:23
[2017-04-06] MEDS: cefTRIAXone Inj 1,000 MG in Dextrose 5% Minibag Plus 50 ML IV SCH (16:28)
--- NOTE | 2017-04-06 16:59 | NUR ---
[facility] can accept with Dr. Benjamin to follow MELVIN Rutledge
--- NOTE | 2017-04-06 18:09 | NUR ---
Sinus Seven/nausea/LOC Cardiac: Pt denies CP, Tele: Afib 50-60, down to 40s at one point today. Resp: Pt denies SOB, SPO2 98% on RA GI/: Pt reported nausea this morning. 4mg ondansetron given, nausea relieved. Pt able to start taking PO intake late morning. Pt denies nausea this afternoon and is feeling hungry for the first time in a while. Neuro: A&O x3, pt much more appropriate today. Able to carry on a conversation and make needs known.
[2017-04-06] MEDS ORDERED: Insulin GLARgine 100 Unit/mL Syringe SUBQ SCH (21:00)
[2017-04-07] MEDS: 0.9% Sodium Chloride 1,000 ML IV SCH ×2 (03:30→11:00)
[2017-04-07 03:33] VITALS: BP 116/56; PULSE 55; RESP 17; O2SAT 92
--- NOTE | 2017-04-07 06:26 | NUR ---
Perdomo/pain/stool C/o generalized discomfort. Sat on edge of bed for some time and tolerated this well. Tylenol given and states this also was helpful. No BM since 04/01. Gave pt Senna at HS. Incontinent as well as used bedpan for large, dark, loose stool. Guiac sent. Perdomo patent drained 200 ml yellow urine. at bedside throughout the night.
[2017-04-07 08:00] VITALS: PULSE 55
[2017-04-07 08:20] VITALS: BP 139/67; PULSE 54; O2SAT 93
[2017-04-07] MEDS: Pantoprazole 40 mg ER24 Tablet PO SCH ×2 (08:24→16:32)
[2017-04-07] MEDS: Diltiazem CD 120 mg ER24 Capsule PO SCH (08:24)
[2017-04-07] MEDS: Insulin LISPRO 300 Unit/3 mL Inj SUBQ SCH ×4 (08:24→20:59)
--- NOTE | 2017-04-07 11:15 | PCM.PNNEPH ---
Subjective Date of Service Apr 07, 2017 Subjective The patient's is feeling a bit better however his creatinine has increased somewhat since yesterday. He denies any headache, chest pain, or diarrhea. He does have some mild abdominal discomfort from overeating. Thyroid blood pressures evaluation the 110s to 1:30 range. His intake and output for last 24 hours shows 20 9:35 AM and 600 out. This morning his sodium is 137, potassium 22, BUN and creatinine were 59 and 4.09. Exam Vital Signs Vital Sign - Last Date Time Temp Pulse Resp B/P Pulse Ox O2 Delivery O2 Flow Rate FiO2 04/07/17 09:13 Supplement Oxygen 04/07/17 08:20 36.5 54 139/67 93 04/07/17 03:33 17 Intake and Output 04/06/17 04/06/17 04/07/17 Cumulative From/Thru 15:00 23:00 07:00 04/03/17 12:23 - 04/07/17 06:27 Intake Total 1835 ml 1194 ml 6199 ml Output Total 200 ml 200 ml 2020 ml Balance 1635 ml 994 ml 4179 ml Intake Oral 700 ml 200 ml 1375 ml IV Total 1135 ml 994 ml 4824 ml Output Urine Total 200 ml 200 ml 1500 ml Emesis 20 ml Ultrafiltrate 500 ml # Bowel Movements 1 2 Exam Neck is supple without adenopathy, thyromegaly, or jugular venous distention. Lungs clear to auscultation although somewhat diminished breath sounds were noted. Heart was regular and rhythmical with a soft systolic murmur. Abdomen soft without any tenderness rebound guarding masses or hepatosplenomegaly. Extremities not show any evidence of any clubbing cyanosis or edema. Skin turgor is slightly diminished and there is no evidence of any rashes. Lab and Diagnostics Result Diagram: 04/06/17 0230 04/07/17 0712 X-Rays, CTs and MRIs . X-RAY CHEST ONE VIEW, PORTABLE IMPRESSION: 1. Pulmonary vascular prominence suggesting mild edema. Dictated by: Jeermie Feliciano M.D. on 04/03/2017 CT BRAIN WITHOUT CONTRAST IMPRESSION: 1. Markedly limited study due to motion artifact. 2. No definite acute intracranial abnormality. If clinical concern persists, consider a repeat study when clinically feasible. 3. Chronic white matter small vessel ischemic changes and cerebral volume loss. 4. Extensive thomas-sinus mucosal disease with air-fluid levels suggestive of acute sinusitis. Dictated by: Jeremie Feliciano M.D. on 04/03/2017 CT ABDOMEN AND PELVIS WITHOUT CONTRAST IMPRESSION: 1. No evidence of hydronephrosis. 2. Bilateral renal cortical thinning and extensive ossification of the renal arteries. 3. Bilateral renal cysts. 4. Small right lower lobe indeterminate pulmonary nodules. If clinically indicated, recommend followup dedicated chest CT in 6 months. 5. Mild bladder wall thickening suggesting a nonspecific cystitis or sequelae of chronic bladder outlet obstruction. Mild submucosal fat deposition is also noted in the bladder wall compatible with sequelae of prior inflammatory change. Dictated by: Jeremie Feliciano M.D. on 04/03/2017 12-lead ECG Atrial fibrillation Left anterior fascicular block No acute ST abnormalities Possible abnormal T wave pathology Plan Impression Impression #1 acute on chronic kidney injury in part due to dehydration number to uremic encephalopathy which is resolved #3 chronic kidney disease stage III/ 4 for diabetic nephropathy #5 hypertension with hypertensive heart disease and hypertensive nephrosclerosis. Recommendations #1 I would like to continue cautious hydration and will need to follow his lab, intake, and output over the next few days and determine his need for acute versus chronic dialysis. Tenzin Bennett DO Apr 07, 2017 11:15
[2017-04-07 12:42] VITALS: BP 124/65; PULSE 59; RESP 16; O2SAT 95
--- NOTE | 2017-04-07 15:42 | PCM.PNMED ---
Subjective Date of Service Apr 07, 2017 Subjective 76-year-old man with type II diabetes mellitus, coronary artery disease and CK D presents with acute kidney failure, hyponatremia and encephalopathy. Mental status has improved markedly. States he still feels lethargic and mildly anorexic. No dyspnea or orthopnea. Exam Vital Signs Vital Sign - Last Date Time Temp Pulse Resp B/P Pulse Ox O2 Delivery O2 Flow Rate FiO2 04/07/17 12:42 36.9 59 16 124/65 95 Room Air Intake and Output 04/06/17 04/06/17 04/07/17 Cumulative From/Thru 15:00 23:00 07:00 04/03/17 12:23 - 04/07/17 06:27 Intake Total 1835 ml 1194 ml 6199 ml Output Total 200 ml 200 ml 2020 ml Balance 1635 ml 994 ml 4179 ml Intake Oral 700 ml 200 ml 1375 ml IV Total 1135 ml 994 ml 4824 ml Output Urine Total 200 ml 200 ml 1500 ml Emesis 20 ml Ultrafiltrate 500 ml # Bowel Movements 1 2 Exam General: Elderly man, alert, no acute distress HEENT: sclerae anicteric, oral mucosa moist, Neck: Right-sided IJ hemodialysis catheter Chest: clear to auscultation Cardiac: S1S2, no murmur Abdomen: BS normal, non-tender Extremities: No pedal edema Neuro: A&O, cranial nerves symmetric, motor strength 5/5, coordination normal IVs and Medications Medications Reviewed: Medications were reviewed in detail Lab and Diagnostics Result Diagram: 04/06/17 0230 04/07/17 0712 X-Rays, CTs and MRIs . X-RAY CHEST ONE VIEW, PORTABLE IMPRESSION: 1. Pulmonary vascular prominence suggesting mild edema. Dictated by: Jeremie Feliciano M.D. on 04/03/2017 CT BRAIN WITHOUT CONTRAST IMPRESSION: 1. Markedly limited study due to motion artifact. 2. No definite acute intracranial abnormality. If clinical concern persists, consider a repeat study when clinically feasible. 3. Chronic white matter small vessel ischemic changes and cerebral volume loss. 4. Extensive thomas-sinus mucosal disease with air-fluid levels suggestive of acute sinusitis. Dictated by: Jeremie Feliciano M.D. on 04/03/2017 CT ABDOMEN AND PELVIS WITHOUT CONTRAST IMPRESSION: 1. No evidence of hydronephrosis. 2. Bilateral renal cortical thinning and extensive ossification of the renal arteries. 3. Bilateral renal cysts. 4. Small right lower lobe indeterminate pulmonary nodules. If clinically indicated, recommend followup dedicated chest CT in 6 months. 5. Mild bladder wall thickening suggesting a nonspecific cystitis or sequelae of chronic bladder outlet obstruction. Mild submucosal fat deposition is also noted in the bladder wall compatible with sequelae of prior inflammatory change. Dictated by: Jeremie Feliciano M.D. on 04/03/2017 12-lead ECG Atrial fibrillation Left anterior fascicular block No acute ST abnormalities Possible abnormal T wave pathology Assessment & Plan Mr. Figueroa is a 76-year-old male with past medical history of chronic kidney disease, diabetes mellitus type II, hyperlipidemia, hypothyroidism, CAD status post triple bypass 2000, thrombocytopenia who presented to the ED via EMS secondary to decreased level of consciousness, admitted for acute on chronic kidney injury with multiple electrolyte. Acute on chronic kidney injury. Present on admission. Ongoing and active. Serum creatinine 7.4 on admission. Most likely secondary to dehydrated state, decreased oral intake and emesis. Dr. Love nephrology consultation from ED, HD cath placement on 04/03, temporary dialysis initiated 04/04. Urine output is recurred although improvement in creatinine is gradual. -Hemodialysis per nephrology service -Continue allopurinol -Hold diuretics - Daily BMP Atrial fibrillation. Present admission, unknown chronicity Ongoing and rate controlled. EKG shows atrial fibrillation, confirmed with physical exam -Currently rate controlled in the 60s with normotensive blood pressure -Continue Coreg 12.5 at bedtime, 25 mg every morning -Continue diltiazem 120 mg by mouth daily -Patient is currently having uremic bleeding, we will defer outpatient anticoagulation Urinary tract infection with pansensitive Escherichia coli, present on admission. Ongoing - Culture shows greater than 100,000 CFU of pansensitive Escherichia coli - Continue ceftriaxone at 1 g IV every 24 hours - Plan to transition to by mouth amoxicillin Possible upper GI bleed, present on admission. Improved, with stable hematocrit. -Patient's reports 1-2 brown-colored emesis but not clearly coffee-ground -No signs of bleeding -Protonix twice a day -Advance diet as tolerated Diabetes mellitus type II, present on admission. Ongoing and uncontrolled. Hemoglobin A1c 8.5%. Inpatient control is suboptimal -Increase bedtime glargine from 10 up to 20 units on 04/06 - Added nutritional insulin on 04/07 - Adjust dosages upwards as needed -Continue Correctional scale lispro Resolving, stable and/or chronic problems: Lactic acidosis, present on admission. Resolved -Likely secondary to dehydrated state as above Hyperphosphatemia, present on admission. Ongoing and active - Resolving with dialysis Hyponatremia, present on admission. Resolved. Serum sodium 125 on admission. -Resolved Hypothyroidism, present on admission. Ongoing -Continue home levothyroxine CODE STATUS: Patient is DNR/DNI discussed with patient and at bedside. Disposition: Patient will require several more days of inpatient services. The situation was discussed in detail at bedside with his today. GI Prophylaxis: Proton Pump Inhibitor VTE Prophylaxis: SCDs VTE Mechanical Devices: Intermittant Pneumatic CD Resuscitation Status: DNR/DNI:Do Not Resuscitate/Intubate Time spent 35 minutes Nehemias Lara MD Apr 07, 2017 15:42
[2017-04-07] MEDS: cefTRIAXone Inj 1,000 MG in Dextrose 5% Minibag Plus 50 ML IV SCH (16:32)
--- NOTE | 2017-04-07 16:50 | NUR ---
NUTRITION ASSESSMENT: ASSESS: 76YO M admit with acute on chronic kidney disease 2/2 dehydration, encephalopathy, MD notes indicate continue cautious hydration and determine need for acute versus chronic dialysis. UTI, Afib. PMHX: DM, CKD Stg III/IV,DM nephropathy,CAD DIET: Renal. PO 0-90%. Variable. Pt reports hunger, observed eating well today. LABS: BUN 59,Cr 4.09,Glu 230,Ca 7.8 MEDS: GI:+BM WEIGHT: 146.6kg, Admit wt145.0kg BMI: 49.1 EST.NEEDS: MORBID OBESITY/PRE-DIALYSIS (25-35kcal/kd adj bw/0.8-1.0g/kg pro adj bw) Kcal: 2235-8064 Pro: 70-90g NUTRITION DIAGNOSIS: (1) Altered nutrition related laboratory values related to acute on chronic kidney disease as evidenced by elevated BUN/Creatinine, possible need for dialysis. INTERVENTION: (1) Renal diet. MONITOR/EVALUATE: Possible dialysis, re-assessment of needs pending initiation of dialysis, labs, po intake. F/U per moderate risk. Addendum: 04/08/17 at [address] NUTRITION EDUCATION Education provided on 04/07 to pt and re diabetic diet. Answered all questions, pt did not desire outpatient nutrition counseling. Consult received today (04/08) re renal diet education to (Stg III/IV CKD). Attempted education with , unavailable today per pt. Handouts left, information highlighted and RD phone number provided to call with questions.
[2017-04-07 20:32] VITALS: BP 137/65; PULSE 53; RESP 18; O2SAT 95
[2017-04-07] MEDS ORDERED: Insulin GLARgine 100 Unit/mL Syringe SUBQ SCH (21:00)
[2017-04-08] VITALS (9 sets, daily range): BP systolic 119–170; BP diastolic 67–82; PULSE 52–66; RESP 14–20; O2SAT 94–98
[2017-04-08] MEDS: 0.9% Sodium Chloride 1,000 ML IV SCH ×3 (00:20→19:45)
[2017-04-08 04:06] LABS: Phosphorus 3.5 mg/dL (2.5-4.9)
[2017-04-08] MEDS: Insulin LISPRO 300 Unit/3 mL Inj SUBQ SCH ×4 (08:36→22:40)
[2017-04-08] MEDS: Diltiazem CD 120 mg ER24 Capsule PO SCH (08:37)
[2017-04-08] MEDS: Pantoprazole 40 mg ER24 Tablet PO SCH ×2 (08:37→17:06)
--- NOTE | 2017-04-08 11:51 | PCM.PNNEPH ---
Subjective Date of Service Apr 08, 2017 Subjective Patient has not had any significant deterioration in his renal function. Otherwise he denies any headache, chest pain, nausea or vomiting. The last 24 hours she has had 2644 in and 450 out. This morning his sodium is 138, potassium 3.6, chloride 102, bicarbonate 20, BUN and creatinine were 60 and 4.13 respectively. Exam Vital Signs Vital Sign - Last Date Time Temp Pulse Resp B/P Pulse Ox O2 Delivery O2 Flow Rate FiO2 04/08/17 09:13 Supplement Oxygen 04/08/17 08:34 36.9 58 14 146/82 95 Intake and Output 04/07/17 04/07/17 04/08/17 Cumulative From/Thru 15:00 23:00 07:00 04/03/17 12:23 - 04/08/17 06:14 Intake Total 1450 ml 2243 ml 9892 ml Output Total 250 ml 350 ml 2620 ml Balance 1200 ml 1893 ml 7272 ml Intake Oral 640 ml 500 ml 2515 ml IV Total 810 ml 1743 ml 7377 ml Output Urine Total 250 ml 350 ml 2100 ml Emesis 20 ml Ultrafiltrate 500 ml # Bowel Movements 1 0 3 Exam Neck is supple without adenopathy or thyromegaly. Lungs are clear to auscultation. Heart is regular and rhythmical with a soft systolic murmur. Abdomen is soft without any tenderness or rebound guarding masses or hepatosplenomegaly. Extremities do not show any evidence of any clubbing, cyanosis, or edema. Skin turgor is good and there is no evidence of any rashes. Lab and Diagnostics Result Diagram: 04/06/17 0230 04/08/17 0320 X-Rays, CTs and MRIs . X-RAY CHEST ONE VIEW, PORTABLE IMPRESSION: 1. Pulmonary vascular prominence suggesting mild edema. Dictated by: Jeremie Feliciano M.D. on 04/03/2017 CT BRAIN WITHOUT CONTRAST IMPRESSION: 1. Markedly limited study due to motion artifact. 2. No definite acute intracranial abnormality. If clinical concern persists, consider a repeat study when clinically feasible. 3. Chronic white matter small vessel ischemic changes and cerebral volume loss. 4. Extensive thomas-sinus mucosal disease with air-fluid levels suggestive of acute sinusitis. Dictated by: Jeremie Feliciano M.D. on 04/03/2017 CT ABDOMEN AND PELVIS WITHOUT CONTRAST IMPRESSION: 1. No evidence of hydronephrosis. 2. Bilateral renal cortical thinning and extensive ossification of the renal arteries. 3. Bilateral renal cysts. 4. Small right lower lobe indeterminate pulmonary nodules. If clinically indicated, recommend followup dedicated chest CT in 6 months. 5. Mild bladder wall thickening suggesting a nonspecific cystitis or sequelae of chronic bladder outlet obstruction. Mild submucosal fat deposition is also noted in the bladder wall compatible with sequelae of prior inflammatory change. Dictated by: Jeremie Feliciano M.D. on 04/03/2017 12-lead ECG Atrial fibrillation Left anterior fascicular block No acute ST abnormalities Possible abnormal T wave pathology Plan Impression Impression #1 acute on chronic kidney injury secondary to dehydration, resolved. #2 Diabetic nephropathy #3 hypertension with hypertensive heart disease and hypertensive nephrosclerosis. #4uremic encephalopathy which is resolved Recommendations #1 although there was a slight increase in his creatinine today from 4.0-4.1 I am wondering if this may be his new level or normal. I would like to add O's 1 or 2 doses of high-dose diuretics to see if we can improve this. Tenzin Bennett DO Apr 08, 2017 11:51
[2017-04-08] MEDS: Furosemide 10 mg/mL 10 mL Inj IVPUSH SCH ×2 (13:20→19:35)
[2017-04-08] MEDS: cefTRIAXone Inj 1,000 MG in Dextrose 5% Minibag Plus 50 ML IV SCH (17:06)
--- NOTE | 2017-04-08 17:57 | NUR ---
Moss/Mobility The pt continues to have a moss with verbal orders to DC the moss after lasix. The pt is able to sit at the side of the bed with good tolerance. The POC is to get up with PT tomorrow. The pt reported no pain through day shift. A&Ox3 with VSS.
--- NOTE | 2017-04-08 18:16 | PCM.PNMED ---
Subjective Date of Service Apr 08, 2017 Subjective 76-year-old man with type II diabetes mellitus, coronary artery disease and CK D presents with acute kidney failure, hyponatremia and encephalopathy. Continuous report nonspecific malaise but does not seem uncomfortable and mental status is normal. No dyspnea or orthopnea. Exam Vital Signs Vital Sign - Last Date Time Temp Pulse Resp B/P Pulse Ox O2 Delivery O2 Flow Rate FiO2 04/08/17 16:33 36.9 54 18 149/68 98 Room Air Intake and Output 04/07/17 04/07/17 04/08/17 Cumulative From/Thru 15:00 23:00 07:00 04/03/17 12:23 - 04/08/17 06:14 Intake Total 1450 ml 2243 ml 9892 ml Output Total 250 ml 350 ml 2620 ml Balance 1200 ml 1893 ml 7272 ml Intake Oral 640 ml 500 ml 2515 ml IV Total 810 ml 1743 ml 7377 ml Output Urine Total 250 ml 350 ml 2100 ml Emesis 20 ml Ultrafiltrate 500 ml # Bowel Movements 1 0 3 Exam General: Elderly man, talkative, no acute distress HEENT: sclerae anicteric, oral mucosa moist, Neck: Right-sided IJ hemodialysis catheter Chest: clear to auscultation, no wheeze Cardiac: S1S2, no murmur Abdomen: BS normal, non-tender Extremities: No pedal edema Neuro: A&O, cranial nerves symmetric, motor strength 5/5, coordination normal Lab and Diagnostics Result Diagram: 04/06/17 0230 04/08/17 1200 X-Rays, CTs and MRIs . X-RAY CHEST ONE VIEW, PORTABLE IMPRESSION: 1. Pulmonary vascular prominence suggesting mild edema. Dictated by: Jeremie Feliciano M.D. on 04/03/2017 CT BRAIN WITHOUT CONTRAST IMPRESSION: 1. Markedly limited study due to motion artifact. 2. No definite acute intracranial abnormality. If clinical concern persists, consider a repeat study when clinically feasible. 3. Chronic white matter small vessel ischemic changes and cerebral volume loss. 4. Extensive thomas-sinus mucosal disease with air-fluid levels suggestive of acute sinusitis. Dictated by: Jeremie Feliciano M.D. on 04/03/2017 CT ABDOMEN AND PELVIS WITHOUT CONTRAST IMPRESSION: 1. No evidence of hydronephrosis. 2. Bilateral renal cortical thinning and extensive ossification of the renal arteries. 3. Bilateral renal cysts. 4. Small right lower lobe indeterminate pulmonary nodules. If clinically indicated, recommend followup dedicated chest CT in 6 months. 5. Mild bladder wall thickening suggesting a nonspecific cystitis or sequelae of chronic bladder outlet obstruction. Mild submucosal fat deposition is also noted in the bladder wall compatible with sequelae of prior inflammatory change. Dictated by: Jeremie Feliciano M.D. on 04/03/2017 12-lead ECG Atrial fibrillation Left anterior fascicular block No acute ST abnormalities Possible abnormal T wave pathology Assessment & Plan Mr. Figueroa is a 76-year-old male with past medical history of chronic kidney disease, diabetes mellitus type II, hyperlipidemia, hypothyroidism, CAD status post triple bypass 2000, thrombocytopenia who presented to the ED via EMS secondary to decreased level of consciousness, admitted for acute on chronic kidney injury with multiple electrolyte. Acute on chronic kidney injury. Present on admission. Ongoing and active. Serum creatinine 7.4 on admission. Most likely secondary to dehydrated state, decreased oral intake and emesis. Dr. Love nephrology consultation from ED, HD cath placement on 04/03, temporary dialysis initiated 04/04. Urine output is recurred although improvement in creatinine is gradual. -Hemodialysis per nephrology service -Continue allopurinol -Hold diuretics - Daily BMP Atrial fibrillation. Present admission, unknown chronicity Ongoing and rate controlled. EKG shows atrial fibrillation. Currently rate controlled in the 60s with normotensive blood pressure. -Continue Coreg 12.5 at bedtime, 25 mg every morning -Continue diltiazem 120 mg by mouth daily -Patient is currently having uremic bleeding, we will defer outpatient anticoagulation Urinary tract infection with pansensitive Escherichia coli, present on admission. Ongoing - Culture shows greater than 100,000 CFU of pansensitive Escherichia coli - Continue ceftriaxone at 1 g IV every 24 hours - Plan to transition to by mouth amoxicillin Diabetes mellitus type II, present on admission. Ongoing and uncontrolled. Hemoglobin A1c 8.5%. Inpatient control is suboptimal, but glucose has risen with improvement in by mouth intake -Increase bedtime glargine to 30 units -Increase nutritional insulin -Continue Correctional scale lispro Resolving, stable and/or chronic problems: Possible upper GI bleed, present on admission. Improved, with stable hematocrit. -Ruled out Lactic acidosis, present on admission. Resolved -Likely secondary to dehydrated state as above Hyperphosphatemia, present on admission. Ongoing and active - Resolving with dialysis Hyponatremia, present on admission. Resolved. Serum sodium 125 on admission. -Resolved Hypothyroidism, present on admission. Ongoing -Continue home levothyroxine CODE STATUS: Patient is DNR/DNI discussed with patient and at bedside. Disposition: Patient will require several more days of inpatient services. The situation was discussed in detail at bedside with his today. GI Prophylaxis: Proton Pump Inhibitor VTE Prophylaxis: SCDs VTE Mechanical Devices: Intermittant Pneumatic CD Resuscitation Status: DNR/DNI:Do Not Resuscitate/Intubate Time spent 35 minutes Nehemias Lara MD Apr 08, 2017 18:16
[2017-04-08] MEDS: Insulin GLARgine 100 Unit/mL Syringe SUBQ SCH (22:40)
--- NOTE | 2017-04-09 00:25 | NUR ---
Comfort Pt denies pain. States, "I'm cold". Given 2 warm blankets. Call light within reach. Pt states he feels "much better". Currently sleeping. Will cont to monitor
[2017-04-09 09:30] VITALS: BP 140/73; PULSE 59; O2SAT 97
[2017-04-09] MEDS: Insulin LISPRO 300 Unit/3 mL Inj SUBQ SCH ×4 (09:34→20:44)
[2017-04-09] MEDS: Pantoprazole 40 mg ER24 Tablet PO SCH (09:35)
[2017-04-09] MEDS: Furosemide 10 mg/mL 10 mL Inj IVPUSH SCH (09:35)
[2017-04-09] MEDS: Diltiazem CD 120 mg ER24 Capsule PO SCH (09:35)
--- NOTE | 2017-04-09 12:27 | PCM.PNNEPH ---
Subjective Date of Service Apr 09, 2017 Subjective Patient's renal function continues to improve. Last 24 hours he has had 3891 in and 900 out with 1400 out already today. He denies any chest pain, shortness of breath, hematuria, nausea or vomiting. This morning his sodium is 136, potassium 4.6, chloride 102, bicarbonate 15, BUN and creatinine were 59 and 3.74. Exam Vital Signs Vital Sign - Last Date Time Temp Pulse Resp B/P Pulse Ox O2 Delivery O2 Flow Rate FiO2 04/09/17 09:30 36.9 59 140/73 97 Room Air 04/08/17 23:10 16 Intake and Output 04/08/17 04/08/17 04/09/17 Cumulative From/Thru 15:00 23:00 07:00 04/03/17 12:23 - 04/09/17 05:22 Intake Total 1648 ml 1810 ml 74011 ml Output Total 550 ml 1400 ml 4570 ml Balance 1098 ml 410 ml 8780 ml Intake Oral 840 ml 200 ml 3555 ml IV Total 808 ml 1610 ml 9795 ml Output Urine Total 550 ml 1400 ml 4050 ml Emesis 20 ml Ultrafiltrate 500 ml # Bowel Movements 0 0 3 Exam Neck is supple without adenopathy, thyromegaly, or jugular venous distention. Lungs are clear to auscultation. Heart was regular and rhythmical with a soft systolic murmur. Abdomen is soft without any tenderness rebound guarding masses or hepatosplenomegaly. Extremities did not show any evidence of any clubbing, cyanosis, or edema. Skin turgor is good. Lab and Diagnostics Result Diagram: 04/06/17 0230 04/09/17 1000 X-Rays, CTs and MRIs . X-RAY CHEST ONE VIEW, PORTABLE IMPRESSION: 1. Pulmonary vascular prominence suggesting mild edema. Dictated by: Jeremie Feliciano M.D. on 04/03/2017 CT BRAIN WITHOUT CONTRAST IMPRESSION: 1. Markedly limited study due to motion artifact. 2. No definite acute intracranial abnormality. If clinical concern persists, consider a repeat study when clinically feasible. 3. Chronic white matter small vessel ischemic changes and cerebral volume loss. 4. Extensive thomas-sinus mucosal disease with air-fluid levels suggestive of acute sinusitis. Dictated by: Jeremie Feliciano M.D. on 04/03/2017 CT ABDOMEN AND PELVIS WITHOUT CONTRAST IMPRESSION: 1. No evidence of hydronephrosis. 2. Bilateral renal cortical thinning and extensive ossification of the renal arteries. 3. Bilateral renal cysts. 4. Small right lower lobe indeterminate pulmonary nodules. If clinically indicated, recommend followup dedicated chest CT in 6 months. 5. Mild bladder wall thickening suggesting a nonspecific cystitis or sequelae of chronic bladder outlet obstruction. Mild submucosal fat deposition is also noted in the bladder wall compatible with sequelae of prior inflammatory change. Dictated by: Jeremie Feliciano M.D. on 04/03/2017 12-lead ECG Atrial fibrillation Left anterior fascicular block No acute ST abnormalities Possible abnormal T wave pathology Plan Impression Impression #1 acute on chronic kidney injury which is resolved #2 stage IV chronic kidney disease #3 diabetic nephropathy #4 hypertension with hypertensive heart disease and hypertensive nephrosclerosis.#5 Cyctitis sensitive to cephazolin Recommendations #1 I would like to stop the IV fluids and his IV Lasix and I would like to start him on torsemide 40 mg every morning. Since his renal function is improving go ahead and remove his temporary dialysis catheter. I will also discontinue his proton pump inhibitor as I feel this is not adding anything to his clinical picture. We do need to follow him for the next several days to monitor his output and renal function. Keflex 500mg BID, stop IV antibiotics. Tenzin Bennett DO Apr 09, 2017 12:27
[2017-04-09 16:44] VITALS: BP 122/67; PULSE 54; RESP 16; O2SAT 98
--- NOTE | 2017-04-09 18:41 | NUR ---
Day shift The pt was able to void successfully throughout the shift post moss removal. The pt's dialysis catheter was removed with no substantial bleeding or oozing. IVF have been DC'ed, and the pt states he is "really starting to feel better". The pt was able to sit at the bedside a few times today - he tolerated it well. Blood sugars are beginning to trend down with newly ordered Insulin parameters. The pt is A&Ox3 with VSS.
--- NOTE | 2017-04-09 18:44 | PCM.PNMED ---
Subjective Date of Service Apr 09, 2017 Subjective 76-year-old man with type II diabetes mellitus, coronary artery disease and CK D presents with acute kidney failure, hyponatremia and encephalopathy. Today he seems more comfortable with less malaise. He is bored. No dyspnea or orthopnea. Exam Vital Signs Vital Sign - Last Date Time Temp Pulse Resp B/P Pulse Ox O2 Delivery O2 Flow Rate FiO2 04/09/17 16:44 36.7 54 16 122/67 98 Room Air Intake and Output 04/08/17 04/08/17 04/09/17 Cumulative From/Thru 15:00 23:00 07:00 04/03/17 12:23 - 04/09/17 05:22 Intake Total 1648 ml 1810 ml 12535 ml Output Total 550 ml 1400 ml 4570 ml Balance 1098 ml 410 ml 8780 ml Intake Oral 840 ml 200 ml 3555 ml IV Total 808 ml 1610 ml 9795 ml Output Urine Total 550 ml 1400 ml 4050 ml Emesis 20 ml Ultrafiltrate 500 ml # Bowel Movements 0 0 3 Exam General: Elderly man, talkative, no acute distress HEENT: sclerae anicteric, oral mucosa moist, Neck: Right-sided IJ hemodialysis catheter now removed Chest: clear to auscultation, no wheeze Cardiac: S1S2, no murmur Abdomen: BS normal, non-tender Extremities: No pedal edema; multiple scattered ecchymoses Neuro: A&O, cranial nerves symmetric, motor strength 5/5, coordination normal Lab and Diagnostics Result Diagram: 04/06/17 0230 04/09/17 1000 X-Rays, CTs and MRIs . X-RAY CHEST ONE VIEW, PORTABLE IMPRESSION: 1. Pulmonary vascular prominence suggesting mild edema. Dictated by: Jeremie Feliciano M.D. on 04/03/2017 CT BRAIN WITHOUT CONTRAST IMPRESSION: 1. Markedly limited study due to motion artifact. 2. No definite acute intracranial abnormality. If clinical concern persists, consider a repeat study when clinically feasible. 3. Chronic white matter small vessel ischemic changes and cerebral volume loss. 4. Extensive thomas-sinus mucosal disease with air-fluid levels suggestive of acute sinusitis. Dictated by: Jeremie Feliciano M.D. on 04/03/2017 CT ABDOMEN AND PELVIS WITHOUT CONTRAST IMPRESSION: 1. No evidence of hydronephrosis. 2. Bilateral renal cortical thinning and extensive ossification of the renal arteries. 3. Bilateral renal cysts. 4. Small right lower lobe indeterminate pulmonary nodules. If clinically indicated, recommend followup dedicated chest CT in 6 months. 5. Mild bladder wall thickening suggesting a nonspecific cystitis or sequelae of chronic bladder outlet obstruction. Mild submucosal fat deposition is also noted in the bladder wall compatible with sequelae of prior inflammatory change. Dictated by: Jeremie Feliciano M.D. on 04/03/2017 12-lead ECG Atrial fibrillation Left anterior fascicular block No acute ST abnormalities Possible abnormal T wave pathology Assessment & Plan Mr. Figueroa is a 76-year-old male with past medical history of chronic kidney disease, diabetes mellitus type II, hyperlipidemia, hypothyroidism, CAD status post triple bypass 2000, thrombocytopenia who presented to the ED via EMS secondary to decreased level of consciousness, admitted for acute on chronic kidney injury with multiple electrolyte. Acute on chronic kidney injury. Present on admission. Ongoing and active. Serum creatinine 7.4 on admission. Most likely secondary to dehydrated state, decreased oral intake and emesis. Dr. Love nephrology consultation from ED, HD cath placement on 04/03, temporary dialysis initiated 04/04. Urine output is recurred although improvement in creatinine is gradual. -Hemodialysis catheter discontinued -Continue allopurinol -Hold diuretics - Daily BMP Atrial fibrillation. Present admission, unknown chronicity Ongoing and rate controlled. EKG shows atrial fibrillation. Currently rate controlled in the 60s with normotensive blood pressure. -Continue Coreg 12.5 at bedtime, 25 mg every morning -Continue diltiazem 120 mg by mouth daily -Patient is currently having uremic bleeding, we will defer outpatient anticoagulation Urinary tract infection with pansensitive Escherichia coli, present on admission. Ongoing - Culture shows greater than 100,000 CFU of pansensitive Escherichia coli - Discontinue ceftriaxone at 1 g IV every 24 hours - Plan to transition to by mouth Keflex Diabetes mellitus type II, present on admission. Ongoing and uncontrolled. Hemoglobin A1c 8.5%. Inpatient control is suboptimal, but glucose has risen with improvement in by mouth intake -Increase bedtime glargine to 50 units -Increase nutritional insulin -Continue Correctional scale lispro Resolving, stable and/or chronic problems: Possible upper GI bleed, present on admission. Improved, with stable hematocrit. -Ruled out Lactic acidosis, present on admission. Resolved -Likely secondary to dehydrated state as above Hyperphosphatemia, present on admission. Ongoing and active - Resolving with dialysis Hyponatremia, present on admission. Resolved. Serum sodium 125 on admission. -Resolved Hypothyroidism, present on admission. Ongoing -Continue home levothyroxine CODE STATUS: Patient is DNR/DNI discussed with patient and at bedside. Disposition: Further inpatient observation for improvement in renal function per nephrology service, likely 2-3 days. GI Prophylaxis: Proton Pump Inhibitor VTE Prophylaxis: SCDs VTE Mechanical Devices: Intermittant Pneumatic CD Resuscitation Status: DNR/DNI:Do Not Resuscitate/Intubate Time spent 25 minutes Nehemias Lara MD Apr 09, 2017 18:44
[2017-04-09 19:39] VITALS: BP 125/60; PULSE 55; RESP 16; O2SAT 97
[2017-04-09] MEDS: Insulin GLARgine 100 Unit/mL Syringe SUBQ SCH (20:45)
[2017-04-10 03:25] VITALS: BP 130/66; PULSE 76; RESP 16; O2SAT 96
--- NOTE | 2017-04-10 06:35 | NUR ---
blood glucose: pt's blood glucose at hs was 155, 40 units lantus given, rechecked at 0250, blood glucose was 142, much better blood sugar control for pt.
[2017-04-10] MEDS: Insulin LISPRO 300 Unit/3 mL Inj SUBQ SCH ×8 (09:18→21:01)
[2017-04-10] MEDS: Diltiazem CD 120 mg ER24 Capsule PO SCH (09:20)
--- NOTE | 2017-04-10 11:34 | PCM.PNMED ---
Subjective Date of Service Apr 10, 2017 Subjective 76-year-old man with type II diabetes mellitus, coronary artery disease, chronic systolic CHF and CKD presents with acute kidney failure, hyponatremia and encephalopathy. Seems somewhat apathetic and has not been motivated to ambulate. He has felt weak prior to admission due to his symptomatic uremia. No dyspnea or orthopnea. No abdominal complaints. Exam Vital Signs Vital Sign - Last Date Time Temp Pulse Resp B/P Pulse Ox O2 Delivery O2 Flow Rate FiO2 04/10/17 06:51 Supplement Oxygen 04/10/17 03:25 36.8 76 16 130/66 96 Intake and Output 04/09/17 04/09/17 04/10/17 Cumulative From/Thru 15:00 23:00 07:00 04/03/17 12:23 - 04/10/17 06:51 Intake Total 1240 ml 200 ml 90567 ml Output Total 700 ml 200 ml 5470 ml Balance 540 ml 0 ml 9320 ml Intake Oral 1240 ml 200 ml 4995 ml IV Total 9795 ml Output Urine Total 700 ml 200 ml 4950 ml Emesis 20 ml Ultrafiltrate 500 ml # Bowel Movements 0 0 3 Exam General: Elderly man, talkative, no acute distress HEENT: sclerae anicteric, oral mucosa moist, Neck: Bandage over right neck Chest: clear to auscultation, no wheeze Cardiac: S1S2, no murmur Abdomen: BS normal, non-tender Extremities: Trace pedal edema; multiple scattered ecchymoses Neuro: A&O, cranial nerves symmetric, motor strength 5/5, coordination normal IVs and Medications Medications Reviewed: Medications were reviewed in detail Lab and Diagnostics Result Diagram: 04/06/17 0230 04/10/17 0250 X-Rays, CTs and MRIs . X-RAY CHEST ONE VIEW, PORTABLE IMPRESSION: 1. Pulmonary vascular prominence suggesting mild edema. Dictated by: Jeremie Feliciano M.D. on 04/03/2017 CT BRAIN WITHOUT CONTRAST IMPRESSION: 1. Markedly limited study due to motion artifact. 2. No definite acute intracranial abnormality. If clinical concern persists, consider a repeat study when clinically feasible. 3. Chronic white matter small vessel ischemic changes and cerebral volume loss. 4. Extensive thomas-sinus mucosal disease with air-fluid levels suggestive of acute sinusitis. Dictated by: Jeremie Feliciano M.D. on 04/03/2017 CT ABDOMEN AND PELVIS WITHOUT CONTRAST IMPRESSION: 1. No evidence of hydronephrosis. 2. Bilateral renal cortical thinning and extensive ossification of the renal arteries. 3. Bilateral renal cysts. 4. Small right lower lobe indeterminate pulmonary nodules. If clinically indicated, recommend followup dedicated chest CT in 6 months. 5. Mild bladder wall thickening suggesting a nonspecific cystitis or sequelae of chronic bladder outlet obstruction. Mild submucosal fat deposition is also noted in the bladder wall compatible with sequelae of prior inflammatory change. Dictated by: Jeremie Feliciano M.D. on 04/03/2017 12-lead ECG Atrial fibrillation Left anterior fascicular block No acute ST abnormalities Possible abnormal T wave pathology Assessment & Plan Mr. Figueroa is a 76-year-old male with past medical history of chronic kidney disease, diabetes mellitus type II, hyperlipidemia, hypothyroidism, CAD status post triple bypass 2000, thrombocytopenia who presented to the ED via EMS secondary to decreased level of consciousness, admitted for acute on chronic kidney injury with multiple electrolyte. Acute on chronic kidney injury. Present on admission. Ongoing and active. Serum creatinine 7.4 on admission. Most likely secondary to dehydrated state, decreased oral intake and emesis. Dr. Love nephrology consultation from ED, HD cath placement on 04/03, temporary dialysis initiated 04/04. Urine output is recurred although improvement in creatinine is gradual. Hemodialysis catheter discontinued on 04/09. Reinitiated diuretics on 04/08, with increasing urine output. - Daily BMP -Continue allopurinol - Diuretics, reinitiation of ABIOLA/ARB per nephrology service Atrial fibrillation. Present admission, unknown chronicity Ongoing and rate controlled. EKG shows atrial fibrillation. Currently rate controlled in the 60s with normotensive blood pressure. -Continue Coreg 12.5 at bedtime, 25 mg every morning -Continue diltiazem 120 mg by mouth daily -Patient has had recent bleeding in central catheter placement, but anticoagulation is indicated at this point -Initiated Warfarin management per pharmacy Urinary tract infection with pansensitive Escherichia coli, present on admission. Ongoing. Cystitis clinically. Culture shows greater than 100,000 CFU of pansensitive Escherichia coli. Ceftriaxone initiated on 04/03. - Keflex to complete 7 days on 04/10 Diabetes mellitus type II, present on admission. Ongoing and uncontrolled. Hemoglobin A1c 8.5%. He reportedly takes Novolin R on a casual basis prior to admission. Inpatient blood glucose control has been suboptimal, but now within target range on 80 units of insulin per day. -Continue bedtime glargine to 40 units, nutritional and correctional insulin - Switched to 50 units Novolin 70/30 every morning with 30 units NPH at bedtime tomorrow, as this will be a better outpatient regimen for him Resolving, stable and/or chronic problems: Chronic systolic congestive heart failure, present on admission. Relatively asymptomatic. Currently on beta yunier. ACEi/ARB to be managed by nephrology service. Volume status to be managed by nephrology service. Possible upper GI bleed, present on admission. Improved, with stable hematocrit. -Ruled out Lactic acidosis, present on admission. Resolved -Likely secondary to dehydrated state as above Hyperphosphatemia, present on admission. Ongoing and active - Resolving with dialysis Hyponatremia, present on admission. Resolved. Serum sodium 125 on admission. -Resolved Hypothyroidism, present on admission. Ongoing -Continue home levothyroxine CODE STATUS: Patient is DNR/DNI discussed with patient and at bedside. Disposition: Further inpatient observation for improvement in renal function per nephrology service, likely 2-3 days. GI Prophylaxis: Proton Pump Inhibitor VTE Prophylaxis: SCDs VTE Mechanical Devices: Intermittant Pneumatic CD Resuscitation Status: DNR/DNI:Do Not Resuscitate/Intubate Time spent 40 minutes Nehemias Lara MD Apr 10, 2017 11:34
[2017-04-10 12:11] VITALS: BP 146/78; PULSE 60; RESP 18; O2SAT 99
--- NOTE | 2017-04-10 12:33 | PCM.PNNEPH ---
Subjective Date of Service Apr 10, 2017 Subjective He is feeling better. He has been up and about. His appetite has improved. Urine is clear. Exam Vital Signs Vital Sign - Last Date Time Temp Pulse Resp B/P Pulse Ox O2 Delivery O2 Flow Rate FiO2 04/10/17 12:11 36.7 60 18 146/78 99 Room Air Intake and Output 04/09/17 04/09/17 04/10/17 Cumulative From/Thru 15:00 23:00 07:00 04/03/17 12:23 - 04/10/17 06:51 Intake Total 1240 ml 200 ml 53059 ml Output Total 700 ml 200 ml 5470 ml Balance 540 ml 0 ml 9320 ml Intake Oral 1240 ml 200 ml 4995 ml IV Total 9795 ml Output Urine Total 700 ml 200 ml 4950 ml Emesis 20 ml Ultrafiltrate 500 ml # Bowel Movements 0 0 3 Exam General appearance: Awake alert 3 in acute distress. HEENT: Atraumatic, No JVD. No lymphadenopathy. No thyroid enlargement. Heart: Irregular rate, rhythm. Normal S1, S2. Distant heart sounds. Lungs decreased breath sounds at bases. No wheezing. No rhonchi. Gynecomastia noted. Abdomen is soft, active bowel sounds. Obese, nontender, nondistended. No hepatosplenomegaly. Extremities: 1+ edema noted on the lower extremity. Skin: Ecchymosis noted on the right neck and right groin. Lab and Diagnostics Result Diagram: 04/06/17 0230 04/10/17 0250 X-Rays, CTs and MRIs . X-RAY CHEST ONE VIEW, PORTABLE IMPRESSION: 1. Pulmonary vascular prominence suggesting mild edema. Dictated by: Jeremie Feliciano M.D. on 04/03/2017 CT BRAIN WITHOUT CONTRAST IMPRESSION: 1. Markedly limited study due to motion artifact. 2. No definite acute intracranial abnormality. If clinical concern persists, consider a repeat study when clinically feasible. 3. Chronic white matter small vessel ischemic changes and cerebral volume loss. 4. Extensive thomas-sinus mucosal disease with air-fluid levels suggestive of acute sinusitis. Dictated by: Jeremie Feliciano M.D. on 04/03/2017 CT ABDOMEN AND PELVIS WITHOUT CONTRAST IMPRESSION: 1. No evidence of hydronephrosis. 2. Bilateral renal cortical thinning and extensive ossification of the renal arteries. 3. Bilateral renal cysts. 4. Small right lower lobe indeterminate pulmonary nodules. If clinically indicated, recommend followup dedicated chest CT in 6 months. 5. Mild bladder wall thickening suggesting a nonspecific cystitis or sequelae of chronic bladder outlet obstruction. Mild submucosal fat deposition is also noted in the bladder wall compatible with sequelae of prior inflammatory change. Dictated by: Jeremie Feliciano M.D. on 04/03/2017 12-lead ECG Atrial fibrillation Left anterior fascicular block No acute ST abnormalities Possible abnormal T wave pathology Plan Impression ASSESSMENT: 1. 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 Status post hemodialysis 3, last HD on 04/06. Serum creatinine anaya to 3.9 today. Patient is doing well, no new complaints. Continue current management. Repeat BMP in the morning.. 2. Uremia, resolved. 3. Complicated urinary tract infection, E.coli, treated. 4. History of longstanding type 2 diabetes complicated by neuropathy, nephropathy and retinopathy. 5. History of coronary artery disease. 6. History of congestive heart failure, EF 15-20% Echo on 04/04/17. Jyoti Jackson MD Apr 10, 2017 12:33 Jyoti Jackson MD Apr 10, 2017 12:33
[2017-04-10 12:43] LABS: INR 1.15 ratio
[2017-04-10 14:22] LABS: Mean Corpuscular Hemoglobin 33.5 pg (27.0-35.0); Mean Corpuscular Volume 102.8 fL (81-100)
--- NOTE | 2017-04-10 14:39 | PCM.CONPHA ---
Subjective Date of Service: Apr 10, 2017 Altered mental status Reason for Pharmacy Consult: Anticoagulation Management Objective Vital Signs Date Time Temp Pulse Resp B/P Pulse Ox O2 Delivery O2 Flow Rate FiO2 04/10/17 12:11 36.7 60 18 146/78 99 Room Air 04/10/17 06:51 Supplement Oxygen 04/10/17 03:25 36.8 76 16 130/66 96 Room Air 04/09/17 23:32 Supplement Oxygen 04/09/17 19:39 36.6 55 16 125/60 97 Room Air 04/09/17 16:44 36.7 54 16 122/67 98 Room Air Intake and Output 04/08/17 04/09/17 04/10/17 00:00 00:00 00:00 Intake Total 2644 ml 3891 ml 3050 ml Output Total 450 ml 900 ml 2100 ml Balance 2194 ml 2991 ml 950 ml Weight (Kilograms): 96.000 Height (Feet): 5 Height (Inches): 8.00 Test 04/03/17 12:30 04/03/17 13:00 04/03/17 17:15 04/03/17 18:53 Alcohols < 10mg/dL (0-10) Urine Color Yellow (YELLOW) Urine Appearance Turbid (CLEAR,HAZY) Urine pH 5.0 (5.0-8.0) Urine Specific [place] 1.025 (1.003-1.035) Urine Protein 100mg/dL (NEG,TRACE) Urine Glucose (UA) Negativemg/dL (NEGATIVE) Urine Ketones Tracemg/dL (NEGATIVE) Urine Occult Blood Large (NEGATIVE) Urine Nitrite Negative (NEGATIVE) Urine Bilirubin Negative (NEGATIVE) Urine Urobilinogen Normalmg/dL (NORMAL) Urine Leukocyte Esterase Moderate (NEGATIVE) Urine RBC 3-10/hpf (0-2) Urine WBC >50/hpf (0-5) Urine Epithelial Cells Moderate/hpf (NONE-MOD) Urine Crystals None seen (NONE SEEN) Urine Bacteria Many/hpf (NONE-FEW) Urine Hyaline Casts None/lpf (NONE) Urine Granular Casts None seen (NONE SEEN) Urine Waxy Casts None seen (NONE SEEN) Urine Red Blood Cell Casts None seen (NONE SEEN) Urine White Blood Cell Casts None seen (NONE SEEN) Urine Mucus None seen (None Seen) Urine Trichomonas None seen (NONE SEEN) Urine Yeast None (NONE SEEN) Urinalysis Comment None Urine Culture Reflexed Indicated Hemoglobin A1c 8.5% (4.8-5.6) Total Creatine Kinase 75U/L (21-232) Troponin T 0.097ug/L (0.0-0.011) Hepatitis B Surface Antigen Negative (Negative) Hepatitis B Surface Antibody Non reactive (.) Hepatitis B Core Total Antibody Negative (Negative) Hepatitis C Antibody <0.1s/co ratio (0.0-0.9) Test 04/04/17 13:30 04/05/17 03:00 04/05/17 09:35 04/06/17 02:30 Lactic Acid Level 1.3mmol/L (0.4-2.0) Magnesium Level 2.5mg/dL (1.6-2.6) Total Bilirubin 0.8mg/dL (0.0-1.2) Aspartate Amino Transf (AST/SGOT) 22U/L (0-50) Alanine Aminotransferase (ALT/SGPT) 10U/L (0-44) Alkaline Phosphatase 67U/L (25-160) Total Protein 6.6g/dL (6.4-8.4) Albumin 3.2g/dL (3.4-5.0) Lipase 163U/L (13-60) Procalcitonin 0.59ng/mL (0.00-0.08) Ammonia 29ug/dL (18-53) Neutrophils (%) (Auto) 70.6% (40-74) Lymphocytes (%) (Auto) 13.5% (14-46) Monocytes (%) (Auto) 13.4% (4-12) Eosinophils (%) (Auto) 1.7% (0-5) Basophils (%) (Auto) 0.1% (0-3) Parathyroid Hormone (Intact) 79pg/mL (15-65) Test 04/08/17 03:20 04/10/17 02:50 04/10/17 12:20 Phosphorus Level 3.5mg/dL (2.5-4.9) White Blood Count 7.3th/mm3 (3.8-10.1) Red Blood Count 3.22mil/mm3 (4.40-5.80) Hemoglobin 10.8g/dL (13.8-17.2) Hematocrit 33.1% (41.0-50.0) Mean Corpuscular Volume 102.8fL (81-100) Mean Corpuscular Hemoglobin 33.5pg (27.0-35.0) Mean Corpuscular Hemoglobin Concent 32.6% (32.0-37.0) Red Cell Distribution Width 17.5% (12.3-15.4) Platelet Count 104bil/L (150-400) Sodium Level 139mEq/L (134-144) Potassium Level 4.1mEq/L (3.5-5.2) Chloride Level 103mEq/L (97-108) Carbon Dioxide Level 20mmol/L (18-29) Blood Urea Nitrogen 63mg/dL (8-27) Creatinine 3.95mg/dL (0.76-1.27) Estimat Glomerular Filtration Rate 16mL/min (>59) Glucose Level 142mg/dL (60-99) Calcium Level 8.1mg/dL (8.5-10.1) Prothrombin Time 12.3sec (8.1-12.5) Prothromb Time International Ratio 1.15ratio Assessment/Plan Assessment/Plan WARFARIN MANAGEMENT A\ 76 YO M ADMITTED FOR ACUTE RENAL FAILURE WITH A HISTORY OF AFIB. NEW START WARFARIN GOAL INR=2-3 CURRENT INR=1.15 HCT=33.1 OAF=265 CURRENTLY RECEIVING ASPIRIN 81MG PO DAILY NO BLEEDING ISSUES REPORTED BY DESIGN AND SALES CONSULTANT INTERACTIONS: LEVOTHYROXINE, ALLOPURINOL, CEPHALEXIN MAY INCREASE THE RISK OF BLEEDING; TORSEMIDE MAY DECREASE WARFARIN CLEARANCE AND INCREASE INR P\ WILL START WITH WARFARIN 5MG PO X1 TONIGHT AND CHECK DAILY INRs WITH AM LABS. Reinier Jacobs [facility] Apr 10, 2017 14:39
--- NOTE | 2017-04-10 14:52 | NUR ---
ALISE Signed MELVIN Valente
--- NOTE | 2017-04-10 16:15 | NUR ---
Social Work Note: Continued Discharge Planning Data& Assessment: PERFORMING ARTS TECHNICIANS met with pt and pt at bedside to discuss discharge planning. Per pt , pt has not ambulated much in the 7 days that he has been hospitalized. Pt expressed hope that he will be able to go home at time of discharge but is open to pt going to [facility] if pt requires rehab. PT evaluation is pending at this time. Pt and pt denies any needs at this time. PERFORMING ARTS TECHNICIANS to continue to follow. Plan: Anticipated discharge to [facility] when medically ready as previously arranged in response to MD order. PERFORMING ARTS TECHNICIANS to continue to follow for PT evaluation and recommendations. MELVIN Valente
--- NOTE | 2017-04-10 16:42 | NUR ---
Evaluation completed. Please go to "Notes" then click on "Assessments and Notes" (bottom left corner of screen). Then select appropriate discipline tab on top of screen.
--- NOTE | 2017-04-10 18:10 | NUR ---
Activity/Glucose Pt increasing activity today, able to ambulate short distance w/ walker, up in chair multiple times, tolerated well. Bgs 160 / 237/ 203 AC; with ordered SS & 10 units SQ admin as per order.
[2017-04-10] MEDS ORDERED: 0.9% Sodium Chloride 100 ML ONE (18:14)
[2017-04-10] MEDS: Polyethylene Glycol (PEG) 17 Gm Powder PO PRN (18:46)
[2017-04-10 19:51] VITALS: BP 135/79; PULSE 60; RESP 18; O2SAT 96
[2017-04-10 23:12] VITALS: BP 133/66; PULSE 55; RESP 20; O2SAT 96
[2017-04-10] MEDS ORDERED: Insulin Human NPH 100 Unit/mL 3 mL Inj SUBQ SCH (23:30)
--- NOTE | 2017-04-11 00:09 | NUR ---
BS Pt's BS 220, gave 1 unit Lispro and 30 units NPH. Pt's VSS, no pain, no other issues noted at this time.
[2017-04-11 05:31] LABS: INR 1.2 ratio
[2017-04-11] MEDS ORDERED: Insulin Human NPH 100 Unit/mL Syringe SUBQ SCH (08:00)
[2017-04-11 08:03] VITALS: BP 136/59; PULSE 58; RESP 16; O2SAT 97
[2017-04-11] MEDS ORDERED: Insulin Human NPH-Reg 70-30 100 Unit/mL 3 mL Pen SUBQ SCH (08:30)
[2017-04-11] MEDS: Diltiazem CD 120 mg ER24 Capsule PO SCH (08:52)
[2017-04-11] MEDS: Insulin Human REGular 300 Unit/3 mL Inj SUBQ SCH (08:59)
--- NOTE | 2017-04-11 11:10 | PCM.PNNEPH ---
Subjective Date of Service Apr 11, 2017 Subjective Denies F/C/N/V/CP/SOB. Good UOP. No new complaints today. Finished breakfast. Exam Vital Signs Vital Sign - Last Date Time Temp Pulse Resp B/P Pulse Ox O2 Delivery O2 Flow Rate FiO2 04/11/17 08:03 36.6 58 16 136/59 97 Room Air Intake and Output 04/10/17 04/10/17 04/11/17 Cumulative From/Thru 15:00 23:00 07:00 04/03/17 12:23 - 04/11/17 06:18 Intake Total 740 ml 300 ml 36989 ml Output Total 750 ml 500 ml 6720 ml Balance -10 ml -200 ml 9110 ml Intake Oral 740 ml 300 ml 6035 ml IV Total 0 ml 9795 ml Output Urine Total 750 ml 500 ml 6200 ml Emesis 20 ml Ultrafiltrate 500 ml # Voids 1 4 5 # Bowel Movements 0 0 3 Exam General appearance: Awake alert 3 in acute distress. HEENT: Atraumatic, No JVD. No lymphadenopathy. No thyroid enlargement. Heart: Irregular rate, rhythm. Normal S1, S2. Distant heart sounds. Lungs decreased breath sounds at bases. No wheezing. No rhonchi. Gynecomastia noted. Abdomen is soft, active bowel sounds. Obese, nontender, nondistended. No hepatosplenomegaly. Extremities: trace edema noted on the lower extremity. Skin: Ecchymosis noted on the right neck and right groin. Lab and Diagnostics Result Diagram: 04/10/17 0250 04/11/17 0435 X-Rays, CTs and MRIs . X-RAY CHEST ONE VIEW, PORTABLE IMPRESSION: 1. Pulmonary vascular prominence suggesting mild edema. Dictated by: Jeremie Feliciano M.D. on 04/03/2017 CT BRAIN WITHOUT CONTRAST IMPRESSION: 1. Markedly limited study due to motion artifact. 2. No definite acute intracranial abnormality. If clinical concern persists, consider a repeat study when clinically feasible. 3. Chronic white matter small vessel ischemic changes and cerebral volume loss. 4. Extensive thomas-sinus mucosal disease with air-fluid levels suggestive of acute sinusitis. Dictated by: Jeremie Feliciano M.D. on 04/03/2017 CT ABDOMEN AND PELVIS WITHOUT CONTRAST IMPRESSION: 1. No evidence of hydronephrosis. 2. Bilateral renal cortical thinning and extensive ossification of the renal arteries. 3. Bilateral renal cysts. 4. Small right lower lobe indeterminate pulmonary nodules. If clinically indicated, recommend followup dedicated chest CT in 6 months. 5. Mild bladder wall thickening suggesting a nonspecific cystitis or sequelae of chronic bladder outlet obstruction. Mild submucosal fat deposition is also noted in the bladder wall compatible with sequelae of prior inflammatory change. Dictated by: Jeremie Feliciano M.D. on 04/03/2017 12-lead ECG Atrial fibrillation Left anterior fascicular block No acute ST abnormalities Possible abnormal T wave pathology Plan Impression ASSESSMENT: 1. 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 Status post hemodialysis 3, last HD on 04/06. Baseline serum creatinine 2.6, eGFR 23 ml/min. Serum creatinine anaya to 3.97 today, eGFR 14 ml/min. TALHA has somewhat resolved. Serum creatinine has not returned to his baseline. There is a chance that he will require chronic HD in a very near future. Continue current management for now. Add NaHCO3 650 mg BID. Decrease Torsemide to 20 mg daily. 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 2. Uremia, resolved. 3. Complicated urinary tract infection, E.coli, treated. 4. Atrial fibrillation, unknown onset. 5. HFrEF, EF 15-20% Echo on 04/04/17. 6. History of longstanding type 2 diabetes complicated by neuropathy, nephropathy and retinopathy. 7. History of coronary artery disease. Jyoti Jackson MD Apr 11, 2017 11:10
--- NOTE | 2017-04-11 11:35 | PCM.PHAPRO ---
Progress Altered mental status WARFARIN DOSING PER PHARMACY [facility] DFF Date Apr 11-Apr INR 1.15 1.2 INR change 0.05 Warf Dose 5mg 5 MG A/P -Day 2 of warfarin new start. -Will continue warfarin 5 mg this evening Jethro Dallas, PharmD Jethro Dallas Apr 11, 2017 11:35
[2017-04-11 12:23] VITALS: BP 120/77; PULSE 58; RESP 18; O2SAT 96
[2017-04-11 16:48] VITALS: BP 117/59; PULSE 52; RESP 18; O2SAT 99
--- NOTE | 2017-04-11 18:02 | PCM.PNMED ---
Subjective Date of Service Apr 11, 2017 Subjective 76-year-old man with type II diabetes mellitus, coronary artery disease, chronic systolic CHF and CKD presents with acute kidney failure, hyponatremia and encephalopathy. Continues to have reasonable urine output. Seems to weak to ambulate. He has felt weak prior to admission due to his symptomatic uremia. No dyspnea or orthopnea. No abdominal complaints. Exam Vital Signs Vital Sign - Last Date Time Temp Pulse Resp B/P Pulse Ox O2 Delivery O2 Flow Rate FiO2 04/11/17 16:48 36.7 52 18 117/59 99 Room Air Intake and Output 04/10/17 04/10/17 04/11/17 Cumulative From/Thru 15:00 23:00 07:00 04/03/17 12:23 - 04/11/17 06:18 Intake Total 740 ml 300 ml 11574 ml Output Total 750 ml 500 ml 6720 ml Balance -10 ml -200 ml 9110 ml Intake Oral 740 ml 300 ml 6035 ml IV Total 0 ml 9795 ml Output Urine Total 750 ml 500 ml 6200 ml Emesis 20 ml Ultrafiltrate 500 ml # Voids 1 4 5 # Bowel Movements 0 0 3 Exam General: Elderly man, lying in bed, no acute distress HEENT: sclerae anicteric, oral mucosa moist, Neck: Supple, catheter site healing well Chest: clear to auscultation, no wheeze Cardiac: S1S2, no murmur Abdomen: BS normal, non-tender Extremities: Trace pedal edema; multiple scattered ecchymoses Neuro: A&O, cranial nerves symmetric, motor strength difficult to sit up on edge of bed, coordination normal IVs and Medications Medications Reviewed: Medications were reviewed in detail Lab and Diagnostics Result Diagram: 04/10/17 0250 04/11/17 0435 X-Rays, CTs and MRIs . X-RAY CHEST ONE VIEW, PORTABLE IMPRESSION: 1. Pulmonary vascular prominence suggesting mild edema. Dictated by: Jeremie Feliciano M.D. on 04/03/2017 CT BRAIN WITHOUT CONTRAST IMPRESSION: 1. Markedly limited study due to motion artifact. 2. No definite acute intracranial abnormality. If clinical concern persists, consider a repeat study when clinically feasible. 3. Chronic white matter small vessel ischemic changes and cerebral volume loss. 4. Extensive thomas-sinus mucosal disease with air-fluid levels suggestive of acute sinusitis. Dictated by: Jeremie Feliciano M.D. on 04/03/2017 CT ABDOMEN AND PELVIS WITHOUT CONTRAST IMPRESSION: 1. No evidence of hydronephrosis. 2. Bilateral renal cortical thinning and extensive ossification of the renal arteries. 3. Bilateral renal cysts. 4. Small right lower lobe indeterminate pulmonary nodules. If clinically indicated, recommend followup dedicated chest CT in 6 months. 5. Mild bladder wall thickening suggesting a nonspecific cystitis or sequelae of chronic bladder outlet obstruction. Mild submucosal fat deposition is also noted in the bladder wall compatible with sequelae of prior inflammatory change. Dictated by: Jeremie Feliciano M.D. on 04/03/2017 12-lead ECG Atrial fibrillation Left anterior fascicular block No acute ST abnormalities Possible abnormal T wave pathology Assessment & Plan Mr. Figueroa is a 76-year-old male with past medical history of chronic kidney disease, diabetes mellitus type II, hyperlipidemia, hypothyroidism, CAD status post triple bypass 2000, thrombocytopenia who presented to the ED via EMS secondary to decreased level of consciousness, admitted for acute on chronic kidney injury with multiple electrolyte. Acute on chronic kidney injury. Present on admission. Ongoing. Acute deterioration Most likely secondary to dehydrated state, decreased oral intake and emesis. Dr. Love nephrology consultation from ED, HD cath placement on 04/03, temporary dialysis initiated 04/04 then catheter discontinued on 04/09. - Continue to watch for recovery of adequate renal function for safe discharge from hospital; yet to determine urgency of outpatient dialysis catheter placement -Continue allopurinol - Daily BMP Paroxysmal Atrial fibrillation. Present admission, chronic Ongoing. -Currently rate controlled in the 60s with normotensive blood pressure -Continue Coreg 12.5 at bedtime, 25 mg every morning -Continue diltiazem Anticoagulation for Paroxysmal atrial fibrillation, chronic. -Options for anticoagulation discussed with patient and family and he refuses anticoagulation due to risks of hemorrhage. Uncontrolled Diabetes mellitus type II, POA. Ongoing. Hemoglobin A1c 8.5%. He has been using NovoLin R 10-40 units when necessary, no basal insulin. Insulin choices are limited by [id number] costs and the [place] formulary, which does not support pending injectors or Lantus. He has a prescription for detemir 30 units twice a day which she has not been using. - He is currently being well managed on a regimen equivalent to Humulin 70/30 at 50 units every morning, and Humulin and 30 units at bedtime - Continue 4 times a day blood sugar checks and decide between NPH or detemir at time of discharge Myopathy, acute on chronic. Moderately severe. Most likely secondary to uremia. Patient has truncal weakness and is unable to arise spontaneously from bed. - Continue physical therapy - Patient prefers home discharge but will require home-based health services including physical therapy and RN Resolving, Stable and/or chronic problems: Electrolyte abnormalities, POA. Ongoing -Nephrology following, HD cath placement 04/03 followed by HD on 04/04 -Continue to monitor with morning labs Urinary tract infection, POA. Ongoing -Culture shows gram-negative rods, likely Escherichia coli sensitivities pending -Completed 7 day course Possible upper GI bleed, POA. Ongoing -Patient's reports 1-2 brown-colored emesis -No signs of bleeding -Protonix twice a day -Continue to monitor, consider GI consult if Sx develop -Advance diet as tolerated Lactic acidosis, POA. Resolved -Likely secondary to dehydrated state as above -Continue to monitor Hyponatremia, POA. Resolved -Normal saline discontinued Hypothyroidism, POA. Ongoing -Continue home levothyroxine CODE STATUS: Patient is DNR/DNI discussed with patient and at bedside. Disposition: Patient will likely require 1-2 more nights of inpatient stay prior to discharge home. GI Prophylaxis: Proton Pump Inhibitor VTE Prophylaxis: SCDs VTE Mechanical Devices: Intermittant Pneumatic CD Resuscitation Status: DNR/DNI:Do Not Resuscitate/Intubate Time spent 35 minutes Nehemias Lara MD Apr 11, 2017 18:02
--- NOTE | 2017-04-11 18:25 | NUR ---
Blood sugar/Activity Blood sugars have been better controlled today with the new humalin R and NPH dosing. 127, 168, 131 Cardiac: Pt denies CP, No Tele. Resp: Pt denies SOB; SPO2 mid 90s on RA. GI/: Pt denies N/V Neuro: A&Ox3, SOFIA. Pt reports that he lacks stamina and feels tired quickly. Pt worked with PT and displayed that he is considerably weaker than his baseline. Discussed the benefits of SNF for rehabilitation. Pt voices understanding, but is still reluctant stating, "I'll crawl if I have to".
[2017-04-11 20:36] VITALS: BP 130/78; PULSE 52; RESP 20; O2SAT 98
[2017-04-11] MEDS: Polyethylene Glycol (PEG) 17 Gm Powder PO PRN (20:44)
[2017-04-11] MEDS: Insulin Human NPH 100 Unit/mL Syringe SUBQ SCH (23:28)
[2017-04-11 23:55] VITALS: BP 149/75; PULSE 53; RESP 20; O2SAT 97
[2017-04-12 03:36] VITALS: BP 119/61; PULSE 57; RESP 20; O2SAT 96
--- NOTE | 2017-04-12 05:09 | NUR ---
Post Void Residual/Weakness/Held medication Pt bladder scan showed 0mL after urination. Pt very weak getting up, needing 2pa to stand with a FWW and when transferring to [facility]. Discussed with pt the importance of becoming stronger before going home and that a SNF may be the best options at this point. Pt verbalized understanding but did not seem interesting in going. Pt pm dose of carvedilol held r/t HR in the lower 50's. VSS and pt is no longer on tele.
[2017-04-12] MEDS ORDERED: ZYL100 PO (08:33)
[2017-04-12] MEDS ORDERED: INSU100V4 SUBQ (08:33)
[2017-04-12 08:35] VITALS: BP 122/60; PULSE 64; RESP 16; O2SAT 95
[2017-04-12] MEDS: Insulin Human REGular 300 Unit/3 mL Inj SUBQ SCH (09:27)
[2017-04-12] MEDS: Diltiazem CD 120 mg ER24 Capsule PO SCH (09:27)
[2017-04-12] MEDS: Insulin Human NPH 100 Unit/mL Syringe SUBQ SCH (09:28)
--- NOTE | 2017-04-12 10:39 | PCM.PNNEPH ---
Subjective Date of Service Apr 12, 2017 Subjective There was no acute issue overnight. He has worsening LE swelling. Serum creatinine continues to rise. Last HD on 04/06/17. Exam Vital Signs Vital Sign - Last Date Time Temp Pulse Resp B/P Pulse Ox O2 Delivery O2 Flow Rate FiO2 04/12/17 08:35 36.7 64 16 122/60 95 Room Air Intake and Output 04/11/17 04/11/17 04/12/17 Cumulative From/Thru 15:00 23:00 07:00 04/03/17 12:23 - 04/12/17 06:14 Intake Total 1036 ml 300 ml 41009 ml Output Total 100 ml 250 ml 7070 ml Balance 936 ml 50 ml 85014 ml Intake Oral 1036 ml 300 ml 7371 ml IV Total 9795 ml Output Urine Total 100 ml 250 ml 6550 ml Emesis 20 ml Ultrafiltrate 500 ml # Voids 2 3 10 # Bowel Movements 0 3 Lab and Diagnostics Result Diagram: 04/10/17 0250 04/12/17 0800 X-Rays, CTs and MRIs . X-RAY CHEST ONE VIEW, PORTABLE IMPRESSION: 1. Pulmonary vascular prominence suggesting mild edema. Dictated by: Jeremie Feliciano M.D. on 04/03/2017 CT BRAIN WITHOUT CONTRAST IMPRESSION: 1. Markedly limited study due to motion artifact. 2. No definite acute intracranial abnormality. If clinical concern persists, consider a repeat study when clinically feasible. 3. Chronic white matter small vessel ischemic changes and cerebral volume loss. 4. Extensive thomas-sinus mucosal disease with air-fluid levels suggestive of acute sinusitis. Dictated by: Jeremie Feliciano M.D. on 04/03/2017 CT ABDOMEN AND PELVIS WITHOUT CONTRAST IMPRESSION: 1. No evidence of hydronephrosis. 2. Bilateral renal cortical thinning and extensive ossification of the renal arteries. 3. Bilateral renal cysts. 4. Small right lower lobe indeterminate pulmonary nodules. If clinically indicated, recommend followup dedicated chest CT in 6 months. 5. Mild bladder wall thickening suggesting a nonspecific cystitis or sequelae of chronic bladder outlet obstruction. Mild submucosal fat deposition is also noted in the bladder wall compatible with sequelae of prior inflammatory change. Dictated by: Jeremie Feliciano M.D. on 04/03/2017 12-lead ECG Atrial fibrillation Left anterior fascicular block No acute ST abnormalities Possible abnormal T wave pathology Plan Impression 1. 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 - ESRD now declared - Status post hemodialysis 3, last HD on 04/06. - Kidney function remains poor. Low UOP and LE swelling. - Will arrange for tunneled cath placement and OP HD arrangement. - NPO AMN. Hold all anticoagulants. 2. Anemia of CKD. 3. Complicated urinary tract infection, E.coli, treated. 4. Atrial fibrillation, unknown onset. 5. HFrEF, EF 15-20% Echo on 04/04/17. 6. History of longstanding type 2 diabetes complicated by neuropathy, nephropathy and retinopathy. 7. History of coronary artery disease. Jyoti Jackson MD Apr 12, 2017 10:39
--- NOTE | 2017-04-12 11:41 | NUR ---
Social Work: Continued Discharge Planning/Bedside Rounding D: MELVIN and his treatment team met with the patient, his at bedside. Pt's care reviewed; patient states that his gang sawyer just informed him that he will be needing chronic dialysis. Patient will likely be here another 1-2 more days while this gets arranged. The topic of discharge planning was reviewed specifically about pt's plan to discharge home and his refusal to go to SNF. The patient is not happy with the recommendation from his team to go to SNF and wants to go home. Team encouraged the patient to continue to work with PT get OOB for all meals. [facility] has accepted with Dr. Benjamin to follow which might still need to occur if the patient is not able to get back towards his baseline mobility. Pt's is on board with plan to d/c to [facility]. LOT ATTENDANT received telephone call from MELVIN Allen at the [facility] [place]. She will be coming to see the patient and his to explore options about chronic dialysis and where to complete treatment. She will also be following up about [facility]. A: Pt who will likely need a SNF at discharge as he is unable to get OOB or maintain upright seated position without assistance. P: Evolving; Pt has been accepted at [facility] with Dr. Benjamin. Pt still wishes to go home but is starting to realize he might have to go to SNF. LOT ATTENDANT to continue to follow. MEVLIN Rutledge
--- NOTE | 2017-04-12 12:28 | PCM.PNMED ---
Subjective Date of Service Apr 12, 2017 Subjective 76-year-old man with type II diabetes mellitus, coronary artery disease, chronic systolic CHF and CKD presents with acute kidney failure, hyponatremia, urinary infection and encephalopathy. Continues to have reasonable urine output, but creatinine is rising. Seems to weak to ambulate. He has felt weak prior to admission due to his symptomatic uremia. No dyspnea or orthopnea. No abdominal complaints. He is discouraged by recommendations for rehabilitation SNF discharge, recommended by physical therapy due to his myopathy deconditioning and weakness. Exam Vital Signs Vital Sign - Last Date Time Temp Pulse Resp B/P Pulse Ox O2 Delivery O2 Flow Rate FiO2 04/12/17 08:35 36.7 64 16 122/60 95 Room Air Intake and Output 04/11/17 04/11/17 04/12/17 Cumulative From/Thru 15:00 23:00 07:00 04/03/17 12:23 - 04/12/17 06:14 Intake Total 1036 ml 300 ml 20887 ml Output Total 100 ml 250 ml 7070 ml Balance 936 ml 50 ml 92947 ml Intake Oral 1036 ml 300 ml 7371 ml IV Total 9795 ml Output Urine Total 100 ml 250 ml 6550 ml Emesis 20 ml Ultrafiltrate 500 ml # Voids 2 3 10 # Bowel Movements 0 3 Exam General: Alert, conversant, slightly slow in responses, no acute distress HEENT: sclerae anicteric, oral mucosa moist, Neck: Supple, right IJ catheter site healing well Chest: clear to auscultation, no wheeze Cardiac: S1S2, no murmur Abdomen: BS normal, non-tender Extremities: Trace pedal edema; multiple scattered ecchymoses Neuro: A&O, cranial nerves symmetric, motor strength 4/5 diffusely, coordination normal IVs and Medications Medications Reviewed: Medications were reviewed in detail Lab and Diagnostics Result Diagram: 04/10/17 0250 04/12/17 0800 X-Rays, CTs and MRIs . X-RAY CHEST ONE VIEW, PORTABLE IMPRESSION: 1. Pulmonary vascular prominence suggesting mild edema. Dictated by: Jeremie Feliciano M.D. on 04/03/2017 CT BRAIN WITHOUT CONTRAST IMPRESSION: 1. Markedly limited study due to motion artifact. 2. No definite acute intracranial abnormality. If clinical concern persists, consider a repeat study when clinically feasible. 3. Chronic white matter small vessel ischemic changes and cerebral volume loss. 4. Extensive thomas-sinus mucosal disease with air-fluid levels suggestive of acute sinusitis. Dictated by: Jeremie Feliciano M.D. on 04/03/2017 CT ABDOMEN AND PELVIS WITHOUT CONTRAST IMPRESSION: 1. No evidence of hydronephrosis. 2. Bilateral renal cortical thinning and extensive ossification of the renal arteries. 3. Bilateral renal cysts. 4. Small right lower lobe indeterminate pulmonary nodules. If clinically indicated, recommend followup dedicated chest CT in 6 months. 5. Mild bladder wall thickening suggesting a nonspecific cystitis or sequelae of chronic bladder outlet obstruction. Mild submucosal fat deposition is also noted in the bladder wall compatible with sequelae of prior inflammatory change. Dictated by: Jeremie Feliciano M.D. on 04/03/2017 12-lead ECG Atrial fibrillation Left anterior fascicular block No acute ST abnormalities Possible abnormal T wave pathology Assessment & Plan Mr. Figueroa is a 76-year-old male with past medical history of chronic kidney disease, diabetes mellitus type II, hyperlipidemia, hypothyroidism, CAD status post triple bypass 2000, thrombocytopenia who presented to the ED via EMS secondary to decreased level of consciousness, admitted for acute on chronic kidney injury with multiple electrolyte. Acute on chronic kidney injury. Present on admission. Ongoing. Acute deterioration Most likely secondary to dehydrated state, decreased oral intake and emesis. Dr. Arriaga nephrology consultation from ED, HD cath placement on 04/03 , temporary dialysis initiated 04/04 then catheter discontinued on 04/09. Subsequently creatinine has risen slightly despite trial without hemodialysis. - NPO after midnight for dialysis catheter placement on 04/13 -Continue allopurinol at renal dose - Daily BMP Uncontrolled Diabetes mellitus type II, POA. Ongoing. Hemoglobin A1c 8.5%. He has been using NovoLin R 10-40 units 2 or 3 times per day when necessary, no basal insulin. Insulin choices are limited by [id number] costs and the [place] formulary, which does not support pending injectors or Lantus. He has a prescription for detemir 30 units twice a day which he has not been using. - He is currently being well managed on a regimen equivalent to Humulin 70/30 at 50 units every morning, and Humulin and 30 units at bedtime - Continue 4 times a day blood sugar checks - The reports that he has detemir at home, hence he may resume this at time of discharge, but should then reduce Novolin R down to 5/15 units 3 times a day with meals Myopathy, acute on chronic. Moderately severe. Most likely secondary to uremia. Patient has truncal weakness and is unable to arise spontaneously from bed. - Continue physical therapy - Patient prefers home discharge but will require SNF vs.home-based health services including physical therapy and RN Resolving, Stable and/or chronic problems: Paroxysmal Atrial fibrillation. Present admission, chronic Ongoing. -Currently rate controlled in the 60s with normotensive blood pressure -Continue Coreg 12.5 at bedtime, 25 mg every morning -Continue diltiazem Anticoagulation for Paroxysmal atrial fibrillation, chronic. -Options for anticoagulation discussed with patient and family and he refuses anticoagulation due to risks of hemorrhage. Electrolyte abnormalities, POA. Ongoing -Nephrology following, HD cath placement 04/03 followed by HD on 04/04 -Continue to monitor with morning labs Urinary tract infection, POA. Ongoing -Culture shows gram-negative rods, likely Escherichia coli sensitivities pending -Completed 7 day course Possible upper GI bleed, POA. Ongoing -Patient's reports 1-2 brown-colored emesis -No signs of bleeding -Protonix twice a day -Continue to monitor, consider GI consult if Sx develop -Advance diet as tolerated Lactic acidosis, POA. Resolved -Likely secondary to dehydrated state as above -Continue to monitor Hyponatremia, POA. Resolved -Normal saline discontinued Hypothyroidism, POA. Ongoing -Continue home levothyroxine CODE STATUS: Patient is DNR/DNI discussed with patient and at bedside. Disposition: Patient will likely require 2 more nights of inpatient stay prior to discharge home after placement of hemodialysis catheter . GI Prophylaxis: Proton Pump Inhibitor VTE Prophylaxis: SCDs VTE Mechanical Devices: Intermittant Pneumatic CD Resuscitation Status: DNR/DNI:Do Not Resuscitate/Intubate Time spent 40 minutes including care coordination meeting at bedside, counseling and patient, and review of data with consultants Nehemias Lara MD Apr 12, 2017 12:28
[2017-04-12 12:45] VITALS: BP 126/63; PULSE 47; RESP 18; O2SAT 98
--- NOTE | 2017-04-12 14:23 | NUR ---
NUTRITION FOLLOW-UP: ASSESS: 76YO M admit with acute on chronic kidney disease 2/2 dehydration, encephalopathy. Nephrology has been following. ESRD has been declared and pt is to have tunnel cath placement tomorrow. He is on a renal diet with good PO at 75-100% of meals. Last recorded BM was 04/07. There are large discrepancies in pts wt. Admit wt is 146kg and current wt is 97kg. Will continue to monitor wt trends however visually pt appears to be closer to 97kg rather than 146kg PMHX: DM, CKD Stg III/IV,DM nephropathy,CAD DIET: Renal. PO 75-100% LABS: Reviewed. Bun 73, change room attendant 4.14, glu 131, ca 8.0, alb MEDS: insulin, senna, miralax GI: BMx1 04/07 WEIGHT: 97kg, BMI 32.5kg/m2, recorded admit wt: 146.6kg. IBW: 70kg EST.NEEDS: BMI, Dialysis ( based off 97kg wt) Kcal: 2425kcal-2910kcal/day (25-30kcal/kg) Pro: 85-140g/day (1.2-2.0g/kg IBW) NUTRITION DIAGNOSIS: (1) Altered nutrition related laboratory values related to acute on chronic kidney disease as evidenced by elevated BUN/Creatinine, possible need for dialysis.--PERSISTS (2) Increased kcal/pro needs related to increased demand for nutrients as evidence by new ESRD and dialysis start INTERVENTION: (1) Education provided on 04/07 to pt and re diabetic diet. Answered all questions, pt did not desire outpatient nutrition counseling. (2) Education provided (04/08) re renal diet education to . Attempted education with , unavailable today per pt. Handouts left, information highlighted and RD phone number provided to call with questions. (3) Continue current diet. PO is adequate for needs. MONITOR/EVALUATE: PO, wt, GI, labs, POC, nutrition status. Will continue to monitor per moderate nutrition risk guidelines
[2017-04-12 16:53] VITALS: BP 123/76; PULSE 48; RESP 18; O2SAT 96
--- NOTE | 2017-04-12 19:42 | NUR ---
Activity Cardiac: Pt denies CP, No Tele. Increased BLE edema from yesterday Resp: Pt denies SOB; SPO2 mid 90s on RA. GI/: Pt denies N/V, Neuro: A&Ox3, SOFIA. Pt reports that he lacks stamina and feels tired quickly. Getting up to chair for meals and pt is motivated to work with PT and increase his mobility.
[2017-04-12 19:43] VITALS: BP 119/57; PULSE 52; O2SAT 98
[2017-04-13] VITALS (10 sets, daily range): BP systolic 115–144; BP diastolic 60–86; PULSE 48–63; RESP 14–22; O2SAT 95–98
[2017-04-13] MEDS: Insulin Human NPH 100 Unit/mL Syringe SUBQ SCH ×3 (00:26→23:13)
[2017-04-13 04:18] LABS: BASOPHILS % (AUTO) 0.3 % (0-3); EOSINOPHILS % (AUTO) 0.8 % (0-5); MONOCYTES % (AUTO) 10.5 % (4-12); Mean Corpuscular Hemoglobin 33.7 pg (27.0-35.0); NEUTROPHILS % (AUTO) 67.9 % (40-74); Platelet Count 131 bil/L (150-400)
[2017-04-13 04:36] LABS: Phosphorus 3.5 mg/dL (2.5-4.9)
[2017-04-13 04:48] LABS: INR 1.18 ratio
--- NOTE | 2017-04-13 05:32 | NUR ---
Activity/NPO/held medication Pt up to chair for dinner and tolerated well. Able to transfer 1PA with FWW to bed for resting. Pt has been NPO since 0000 for tunnel cath placement today for dialysis. PM dose of carvedilol held r/t bradycardia, pt HR at assessments have been in the upper 40's to 50's. VSS and pt is no longer on tele.
[2017-04-13] MEDS: Insulin Human REGular 300 Unit/3 mL Inj SUBQ SCH (07:40)
[2017-04-13] MEDS ORDERED: CeFAZolin 2 Gm/50 mL D5W Duplex Bag IV ONE (09:35)
[2017-04-13] MEDS ORDERED: Heparin 10,000 Unit/1,000 mL NS Premix IV ONE (10:05)
[2017-04-13] MEDS ORDERED: fentaNYL-PF 50 mCg/mL 2 mL Inj ONE (10:17)
[2017-04-13] MEDS ORDERED: 0.9% Sodium Chloride 50 ML ONE (10:24)
--- NOTE | 2017-04-13 10:26 | PCM.PNNEPH ---
Subjective Date of Service Apr 13, 2017 Subjective There was no acute episode overnight. Patient is nothing by mouth for tunneled catheter placement. Patient will receive hemodialysis today for 3-1/2 hours. Exam Vital Signs Vital Sign - Last Date Time Temp Pulse Resp B/P Pulse Ox O2 Delivery O2 Flow Rate FiO2 04/13/17 07:25 36.7 59 16 144/86 96 Room Air Intake and Output 04/12/17 04/12/17 04/13/17 Cumulative From/Thru 15:00 23:00 07:00 04/03/17 12:23 - 04/13/17 06:40 Intake Total 776 ml 100 ml 07074 ml Output Total 360 ml 275 ml 7705 ml Balance 416 ml -175 ml 78691 ml Intake Oral 776 ml 100 ml 8247 ml IV Total 9795 ml Output Urine Total 360 ml 275 ml 7185 ml Emesis 20 ml Ultrafiltrate 500 ml # Voids 10 # Bowel Movements 3 Exam General appearance: AAO3, not in acute distress. HEENT: Atraumatic, No JVD. No lymphadenopathy. No thyroid enlargement. Heart: Irregular rate, rhythm. Normal S1, S2. Lungs: decreased breath sounds at bases. No wheezing. No rhonchi. Gynecomastia noted. Abdomen: soft, active bowel sounds. Obese, nontender, nondistended. No hepatosplenomegaly. Extremities: 1+ edema noted on the lower extremity. Skin: Ecchymosis noted on right groin. Lab and Diagnostics Result Diagram: 04/13/17 0340 04/13/17 0340 X-Rays, CTs and MRIs . X-RAY CHEST ONE VIEW, PORTABLE IMPRESSION: 1. Pulmonary vascular prominence suggesting mild edema. Dictated by: Jeremie Feliciano M.D. on 04/03/2017 CT BRAIN WITHOUT CONTRAST IMPRESSION: 1. Markedly limited study due to motion artifact. 2. No definite acute intracranial abnormality. If clinical concern persists, consider a repeat study when clinically feasible. 3. Chronic white matter small vessel ischemic changes and cerebral volume loss. 4. Extensive thomas-sinus mucosal disease with air-fluid levels suggestive of acute sinusitis. Dictated by: Jeremie Feliciano M.D. on 04/03/2017 CT ABDOMEN AND PELVIS WITHOUT CONTRAST IMPRESSION: 1. No evidence of hydronephrosis. 2. Bilateral renal cortical thinning and extensive ossification of the renal arteries. 3. Bilateral renal cysts. 4. Small right lower lobe indeterminate pulmonary nodules. If clinically indicated, recommend followup dedicated chest CT in 6 months. 5. Mild bladder wall thickening suggesting a nonspecific cystitis or sequelae of chronic bladder outlet obstruction. Mild submucosal fat deposition is also noted in the bladder wall compatible with sequelae of prior inflammatory change. Dictated by: Jeremie Feliciano M.D. on 04/03/2017 12-lead ECG Atrial fibrillation Left anterior fascicular block No acute ST abnormalities Possible abnormal T wave pathology Plan Impression 1. ESRD now declared - Status post hemodialysis 3, last HD on 04/06. - Patient to have tunneled catheter placement today. - We will arrange for hemodialysis 3-1/2 hours. - wafer line worker to arrange for outpatient hemodialysis. 2. Anemia of CKD. - We'll give IV aranesp while on dialysis 3. Complicated urinary tract infection, E.coli, treated. 4. Atrial fibrillation, unknown onset. 5. HFrEF, EF 15-20% Echo on 04/04/17. 6. History of longstanding type 2 diabetes complicated by neuropathy, nephropathy and retinopathy. 7. History of coronary artery disease. Jyoti Jackson MD Apr 13, 2017 10:26
[2017-04-13] MEDS ORDERED: Heparin 1,000 Unit/mL 10 mL Inj ONE (11:25)
--- NOTE | 2017-04-13 11:27 | NUR ---
SENIOR CARE TRANSFER FOLLOW UP: Spoke with Latonia at [facility] and let her know patient is likely going to be ready for discharge tomorrow.
--- NOTE | 2017-04-13 12:15 | NUR ---
Dr Acosta consulted about patient's post procedure CXR. Pt may be dialyzed, pt tx to dialysis nurse on [facility] dept. stable condition.
--- NOTE | 2017-04-13 13:00 | DRSVH ---
PROCEDURE: X-RAY CHEST ONE VIEW, PORTABLE ([id number]) INDICATIONS: POST LINE PLACEMENT TECHNIQUE: One view of the chest was acquired. COMPARISON: [facility], CR, XR CHEST 1VW (PORTABLE), 04/03/2017, 18:20. FINDINGS: Surgical changes and devices: Sternotomy wires, prior CABG stable over time. A central line from rig ht sided approach extends inferiorly into the area of the right atrium. Lungs and pleura: No pleural effusions or pneumothorax. Lungs are unchanged, with reduced inspirato ry line. Mediastinum: Mediastinal contours appear normal. Heart size is mildly enlarged, as has been previou sly the case. Bones and chest wall: No suspicious bony lesions. Overlying soft tissues appear unremarkable. IMPRESSION: Central line tip appears to have advanced more inferiorly with reference to the prior moni dy from earlier this month, with the tip now in the right atrium area. Prior CABG, chronic cardiomeg renuka. No pneumothorax. Dictated by: Nash Valera M.D. on 04/13/2017 at 12:57 Approved by: Nash Valera M.D. on 04/13/2017 at 12:59
[2017-04-13] MEDS ORDERED: Darbepoetin Alfa (ESRD) 40 mCg/0.4 mL Inj SUBQ ONE (13:25)
--- NOTE | 2017-04-13 14:07 | NUR ---
Transfer for dialysis Patient transported into [facility]. Report received from Hanh Yoo RN. Blood glucose 102. welding machine operator helper arc at bedside. Addendum: 04/13/17 at 1813 by ADRIANA RING RN Transferred back to 2021. Report given by la nena DIEGO.
[2017-04-13 14:55] LABS: Unsaturated Iron Binding 137.5 ug/dL
--- NOTE | 2017-04-13 14:56 | NUR ---
dialysis note pt brought from surgery for perm CVC placement in stable condition, A&Ox3, no c/o pain chest xray confirms proper CVC placement small amount of bloody drainage under opsite, re-enforced with gauze heparin dwell removed for CVC, both ports flush and aspirate with ease treatment started without difficulty, pt resting and tolerating well Addendum: 04/13/17 at 1657 by RUBINA BURNETT RN total treatment 3.5 hours total removed 1500 treatment end, blood returned, CVC flushed and locked with heparin 1000u/ml treatment tolerated well, no complaints of pain Report called to Wilmer DIEGO discharged in stable condition See DTR for complete dialysis record
--- NOTE | 2017-04-13 17:27 | DRSVH ---
PROCEDURE: CV TUNNEL CATH PLCMNT 1. Sonographic guidance for venous access. 2. Conscious sedation for 58 minutes. 3. Right internal jugular vein tunneled hemodialysis catheter placement. 4. Fluoroscopic guidance for catheter placement. INDICATIONS: ESRD TECHNIQUE: The indications, alternatives, benefits, risks, and complications of the procedure were e xplained to the patient and any family members present. Informed written consent was obtained and pl aced in the chart. The patient was brought to the angiography suite, and conscious sedation was admi nistered intravenously by [facility] staff, while continuous cardiorespiratory monitoring was pe rformed. Maximum sterile barrier technique was employed per standard protocol, including hand hygiene, cap, ma sk, sterile gown and gloves, and 2% chlorhexidine. Sterile ultrasound probe cover was also utilized. 1% lidocaine was used for local anaesthesia. Under sonographic guidance, the right internal jugular vein was accessed with a Micropuncture set. An 0.035J wire was advanced into the vena cava. Subcuta neous tunnel was created within the right anterior chest wall, through which a 14.5 Greek double lum en tunneled hemodialysis catheter was advanced. Following sequential venotomy tract dilation, the ca theter was advanced through the peel-away sheath and the tip was placed at the cavoatrial junction. Peel-away sheath was removed. Adequate flow was obtained through both lumens of the catheter. The v enotomy was closed with Vicryl, and the catheter was fastened to the skin with Ticron. Both lumens w ere flushed with heparinized saline. The patient tolerated the procedure without difficulty and was in stable condition at the conclusion of the procedure. COMPARISON: None. FINDINGS: The right internal jugular vein is patent by ultrasound. Fluoroscopic imaging demonstrates tip of th e catheter at the cavoatrial junction. IMPRESSION: Right internal jugular vein tunneled hemodialysis catheter placement using sonographic and fluoroscop ic guidance. Dictated by: Tyesha Acosta M.D. on 04/13/2017 at 17:24 Approved by: Tyesha Acosta M.D. on 04/13/2017 at 17:25
[2017-04-13] MEDS: Diltiazem CD 120 mg ER24 Capsule PO SCH (18:12)
--- NOTE | 2017-04-13 18:13 | PCM.PNMED ---
Subjective Date of Service Apr 13, 2017 Subjective The patient is still somewhat weak. He denies shortness of breath. He still is edema. He has catheter placed hemodialysis session today. He has another tomorrow. No fevers or chills. No chest or abdominal pain. No overnight events. Exam Vital Signs Vital Sign - Last Date Time Temp Pulse Resp B/P Pulse Ox O2 Delivery O2 Flow Rate FiO2 04/13/17 17:25 36.6 59 16 119/62 98 Room Air Intake and Output 04/12/17 04/12/17 04/13/17 Cumulative From/Thru 15:00 23:00 07:00 04/03/17 12:23 - 04/13/17 06:40 Intake Total 776 ml 100 ml 68731 ml Output Total 360 ml 275 ml 7705 ml Balance 416 ml -175 ml 89811 ml Intake Oral 776 ml 100 ml 8247 ml IV Total 9795 ml Output Urine Total 360 ml 275 ml 7185 ml Emesis 20 ml Ultrafiltrate 500 ml # Voids 10 # Bowel Movements 3 Exam Alert and oriented -3, no distress. Fluent speech, lethargic. Chronically ill. Anicteric sclera. Lungs are clear with normal rate and effort, diminished breath sounds. Heart is regular without murmur gallop or rub Abdomen soft nontender, distended Extremities are with 3+ edema bilaterally Skin is notable for extensive acute mycosis over the forearms. IVs and Medications Medications Reviewed: Medications were reviewed in detail Lab and Diagnostics Result Diagram: 04/13/17 0340 04/13/17 0340 X-Rays, CTs and MRIs . X-RAY CHEST ONE VIEW, PORTABLE IMPRESSION: 1. Pulmonary vascular prominence suggesting mild edema. Dictated by: Jeremie Feliciano M.D. on 04/03/2017 CT BRAIN WITHOUT CONTRAST IMPRESSION: 1. Markedly limited study due to motion artifact. 2. No definite acute intracranial abnormality. If clinical concern persists, consider a repeat study when clinically feasible. 3. Chronic white matter small vessel ischemic changes and cerebral volume loss. 4. Extensive thomas-sinus mucosal disease with air-fluid levels suggestive of acute sinusitis. Dictated by: Jeremie Feliciano M.D. on 04/03/2017 CT ABDOMEN AND PELVIS WITHOUT CONTRAST IMPRESSION: 1. No evidence of hydronephrosis. 2. Bilateral renal cortical thinning and extensive ossification of the renal arteries. 3. Bilateral renal cysts. 4. Small right lower lobe indeterminate pulmonary nodules. If clinically indicated, recommend followup dedicated chest CT in 6 months. 5. Mild bladder wall thickening suggesting a nonspecific cystitis or sequelae of chronic bladder outlet obstruction. Mild submucosal fat deposition is also noted in the bladder wall compatible with sequelae of prior inflammatory change. Dictated by: Jeremie Feliciano M.D. on 04/03/2017 12-lead ECG Atrial fibrillation Left anterior fascicular block No acute ST abnormalities Possible abnormal T wave pathology Assessment & Plan Mr. Figueroa is a 76-year-old male with past medical history of chronic kidney disease, diabetes mellitus type II, hyperlipidemia, hypothyroidism, CAD status post triple bypass 2000, thrombocytopenia who presented to the ED via EMS secondary to decreased level of consciousness, admitted for acute on chronic kidney injury with multiple electrolyte. Acute on chronic kidney injury. Present on admission. Ongoing. Acute deterioration Most likely secondary to dehydrated state, decreased oral intake and emesis. Dr. Arriaga nephrology consultation from ED, HD cath placement on 04/03 , temporary dialysis initiated 04/04 then catheter discontinued on 04/09. Subsequently creatinine has risen slightly despite trial without hemodialysis. -- Patient had dialysis catheter placed today and dialysis. Dialysis again tomorrow. Diabetes mellitus type II, present on admission and stable. Hemoglobin A1c 8.5% . He has been using NovoLin R 10-40 units 2 or 3 times per day when necessary, no basal insulin. Insulin choices are limited by [id number] costs and the [place] formulary, which does not support pending injectors or Lantus. He has a prescription for detemir 30 units twice a day which he has not been using. - He is currently being well managed on a regimen equivalent to Humulin 70/30 at 50 units every morning, and Humulin and 30 units at bedtime No changes to medications. Myopathy,Present on admission and active. Most likely secondary to uremia. Patient has truncal weakness and is unable to arise spontaneously from bed. - Continue physical therapy -Patient is warned except long term facility and will require follow-up care. Paroxysmal Atrial fibrillation. Present admission, and active. -Currently rate controlled in the 60s with normotensive blood pressure -Continue Coreg 12.5 at bedtime, 25 mg every morning -Continue diltiazem No change in these medications. Anticoagulation for Paroxysmal atrial fibrillation, chronic. -Options for anticoagulation discussed with patient and family and he refuses anticoagulation due to risks of hemorrhage. Electrolyte abnormalities, present on admission and active -Nephrology following, -Continue to monitor with morning labs Urinary tract infection, present on admission. Resolved. -Culture shows gram-negative rods, likely Escherichia coli sensitivities pending -Completed 7 day course Possible upper GI bleed, present on admission and resolved. -Patient's reports 1-2 brown-colored emesis -No signs of bleeding -Protonix twice a day -Continue to monitor, consider GI consult if Sx develop -Advance diet as tolerated Lactic acidosis, present on admission. Resolved -Likely secondary to dehydrated state as above -Continue to monitor Hyponatremia, present on admission. Resolved -Normal saline discontinued Hypothyroidism, present on admission. Ongoing -Continue home levothyroxine CODE STATUS: Patient is DNR/DNI discussed with patient and at bedside. Disposition: Patient will likely require 2 more nights of inpatient stay prior to discharge home after placement of hemodialysis catheter Anticipated discharge to SNF April 14 or depending on the dialysis plan . GI Prophylaxis: Proton Pump Inhibitor VTE Prophylaxis: SCDs VTE Mechanical Devices: Intermittant Pneumatic CD Resuscitation Status: DNR/DNI:Do Not Resuscitate/Intubate Farzad Guajardo MD Apr 13, 2017 18:13
--- NOTE | 2017-04-13 19:29 | NUR ---
Dialysis cath/dialysis permanent dialysis cath placed this AM, then pt off directly to [facility] for dialysis. Pt returned to [facility] at 16:00. Cardiac: Pt denies CP, No Tele. Resp: Pt denies SOB, SpO2 96% on RA GI/: Pt denies N/V, Neuro: A&Ox3, SOFIA. Pt gone off floor most of shift. Pt up to bathroom for BM this evening.
--- NOTE | 2017-04-14 02:30 | NUR ---
Blood Glucose: P: HS blood glucose = 72. I: NPH held. 4 ounces of apple juice administered. Blood glucose anaya to 92. E: Blood sugar rechecked this am = 83. Pt remains stable.
[2017-04-14 03:56] VITALS: BP 124/61; PULSE 102; RESP 16; O2SAT 98
[2017-04-14 04:39] VITALS: PULSE 49
--- NOTE | 2017-04-14 04:58 | NUR ---
Coreg: Evening 12.5 mg dose of Coreg administered last night with a HR in the low 60s. Pulse rate noted in the upper 40s to 50s over the course of the night with vital signs. Pt stable; remains off of telemetry.
[2017-04-14] MEDS: Insulin Human REGular 300 Unit/3 mL Inj SUBQ SCH (08:00)
[2017-04-14] MEDS: Insulin Human NPH 100 Unit/mL Syringe SUBQ SCH (08:00)
[2017-04-14] MEDS: Diltiazem CD 120 mg ER24 Capsule PO SCH (08:30)
[2017-04-14] MEDS ORDERED: Vitamin B Complex/Vit C Tablet PO SCH (08:30)
[2017-04-14 08:48] VITALS: BP 119/70; PULSE 55; RESP 16; O2SAT 96
--- NOTE | 2017-04-14 09:30 | NUR ---
Off unit Pt off unit to [facility] for Dialysis, report given to MOC RN. BP meds held this morning per request from software validation engineer. Pt had a blood glucose of 71 and did not want any insulin. Will check blood glucose for lunch. oil and gas field technician aware of pt being off unit.
[2017-04-14 09:45] VITALS: BP 140/55; PULSE 47
--- NOTE | 2017-04-14 10:56 | NUR ---
Transfer for dialysis Received patient into room 244-1. Report received from Ana Lombardi RN. Patient denies pain. Oriented to room. pyroglazer at bedside. Addendum: 04/14/17 at 1539 by ADRIANA RING RN Patient transported back to room 2021. Blood glucose 78, given snack. Asymptomatic. Report given to Lakesha.
--- NOTE | 2017-04-14 12:04 | PCM.PNNEPH ---
Subjective Date of Service Apr 14, 2017 Subjective s/p tunneled catheter placement yesterday He is seen during dialysis. He is comfortable. He has no chest pain or shortness of breath. He has lower extremity swelling. Bradycardia noted, patient is taking Coreg and diltiazem. Exam Vital Signs Vital Sign - Last Date Time Temp Pulse Resp B/P Pulse Ox O2 Delivery O2 Flow Rate FiO2 04/14/17 09:45 47 04/14/17 08:48 36.5 16 119/70 96 Room Air Intake and Output 04/13/17 04/13/17 04/14/17 Cumulative From/Thru 15:00 23:00 07:00 04/03/17 12:23 - 04/14/17 06:41 Intake Total 120 ml 220 ml 64419 ml Output Total 1600 ml 75 ml 9380 ml Balance -1480 ml 145 ml 9002 ml Intake Oral 120 ml 220 ml 8587 ml IV Total 9795 ml Output Urine Total 100 ml 75 ml 7360 ml Emesis 20 ml Ultrafiltrate 1500 ml 2000 ml # Voids 10 # Bowel Movements 3 Exam General appearance: AAO3, not in acute distress. HEENT: Atraumatic, No JVD. No lymphadenopathy. No thyroid enlargement. Heart: Irregular rate, rhythm. Normal S1, S2. Bradycardic. Lungs: decreased breath sounds at bases. No wheezing. No rhonchi. Gynecomastia noted. Abdomen: soft, active bowel sounds. Obese, nontender, nondistended. No hepatosplenomegaly. Extremities: 2+ edema noted on the lower extremity. Skin: Right tunneled catheter in place,no active bleeding. Lab and Diagnostics Result Diagram: 04/13/17 03404/13/17 034 X-Rays, CTs and MRIs . X-RAY CHEST ONE VIEW, PORTABLE IMPRESSION: 1. Pulmonary vascular prominence suggesting mild edema. Dictated by: Jeremie Feliciano M.D. on 04/03/2017 CT BRAIN WITHOUT CONTRAST IMPRESSION: 1. Markedly limited study due to motion artifact. 2. No definite acute intracranial abnormality. If clinical concern persists, consider a repeat study when clinically feasible. 3. Chronic white matter small vessel ischemic changes and cerebral volume loss. 4. Extensive thomas-sinus mucosal disease with air-fluid levels suggestive of acute sinusitis. Dictated by: Jeremie Feliciano M.D. on 04/03/2017 CT ABDOMEN AND PELVIS WITHOUT CONTRAST IMPRESSION: 1. No evidence of hydronephrosis. 2. Bilateral renal cortical thinning and extensive ossification of the renal arteries. 3. Bilateral renal cysts. 4. Small right lower lobe indeterminate pulmonary nodules. If clinically indicated, recommend followup dedicated chest CT in 6 months. 5. Mild bladder wall thickening suggesting a nonspecific cystitis or sequelae of chronic bladder outlet obstruction. Mild submucosal fat deposition is also noted in the bladder wall compatible with sequelae of prior inflammatory change. Dictated by: Jeremie Feliciano M.D. on 04/03/2017 12-lead ECG Atrial fibrillation Left anterior fascicular block No acute ST abnormalities Possible abnormal T wave pathology Plan Impression 1. ESRD now declared Hemodialysis Procedure Dialyzer: Revaclear Blood Flow Rate: 400 Dialysate Flow Rate: 600 Duration: 4 hr HD access: Right tunneled catheter K bath: 3 HCO3 bath: 35 Ultrafiltration: 2L 2. Anemia of CKD. s/p IV aranesp 3. Complicated urinary tract infection, E.coli, treated. 4. Atrial fibrillation, unknown onset. 5. HFrEF, EF 15-20% Echo on 04/04/17. 6. History of longstanding type 2 diabetes complicated by neuropathy, nephropathy and retinopathy. 7. History of coronary artery disease. Plan: Next HD on Sat. Recommend to hold diltiazem and continue the carvedilol. Per renal standpoint, patient can be discharged after dialysis if he is stable. Jyoti Jackson MD Apr 14, 2017 12:04
--- NOTE | 2017-04-14 14:15 | NUR ---
Dialysis note: 4 hrs tx 2000 ml net UF Right catheter, dsg changed, sutures intact Pls see DTR for VS details Qb 400 Heparin prime only given O2 @ 2L via NC on during the tx Tolerated treatment Catheter flushed, heparin dwelled and secured Stable condition at end of tx Report given to Elmira DIEGO
[2017-04-14 14:16] VITALS: BP 135/77; PULSE 73; RESP 18; O2SAT 97
--- NOTE | 2017-04-14 14:20 | NUR ---
Social Work: Discharge/ Multidisciplinary Rounds D: Pt discussed in multidisciplinary rounds; the patient is likely medically stable for discharge to [facility] today. the patient has been accepted by Dr. Benjamin. COMMUTATOR ASSEMBLER spoke with Latonia at [facility]. She confirms they have a bed available and can pickup the patient today at 4:00pm. COMMUTATOR ASSEMBLER inquired if they are able to assist with transportation to dialysis at least temporarily until dial-a-ride can be arranged. She is checking on this. COMMUTATOR ASSEMBLER met with the patient at bedside to review discharge plan. The patient states that he agrees with the plan to go to [facility] stating "well my won't take me home so I guess I have no choice." COMMUTATOR ASSEMBLER explained the medical necessity for him to go to a SNF for safety purposes and continued strengthening and functional mobility improvement. Pt understands. COMMUTATOR ASSEMBLER attempted to contact patient's to notify. No answer. Patient states that he believes that she is somewhere at the hospital and should be back to his room shortly. Slide Machine Tender to fax discharge ppw once completed. A: Pt who will require SNF at discharge. P: Pt to discharge to [facility] with Dr Benjamin to follow. MELVIN Rutledge Addendum: 04/14/17 at 1538 by JOVON TAFOYA Discharge ppw faxed. COMMUTATOR ASSEMBLER spoke with Tiffany at [facility] She confirms the patient has a chair for tomorrow. Patient will need to be there at 12:00. [facility] confirms they are arranging for transportation for the patient. Bedside RN aware of transport time.
--- NOTE | 2017-04-14 14:23 | PCM.DIMED ---
Nehemias Lara MD 04/12/17 0837: Discharge Instructions Date of Service Apr 12, 2017 Dates of Hospitalization Apr 03, 2017 at 14:58 Discharge Diagnosis Discharge Diagnosis Acute kidney injury on chronic kidney disease; Temporary hemodialysis; Atrial fibrillation with rapid ventricular response; Poorly controlled type II diabetes mellitus; Deconditioning and uremic myopathy; Urinary tract infection; Hyperkalemia Medication Instructions Additional med instructions He should follow-up with Dr. Wilkerson your state pilot regarding plans for hemodialysis. Your allopurinol dose should be reduced from 200-100. Your type 2 diabetes mellitus is not one well-controlled at this time. You should resume your Levemir insulin 30 mg twice per day. When you are taking Levemir insulin you may reduce your Novolin R insulin to 5-15 units at each meal according to your blood sugar readings and the amount of carbohydrates you will eat. He should check with her primary care provider for further guidance on diabetes management. Diet Discharge Diet: Renal Diet Activity Discharge Activity: Other (as per SNF) Patient Instructions Follow-up Provider: Angelica Wilkerson MD Follow-up with PCP in: 1 week Attending's Statement I interviewed and examined the patient on the day of discharge. I agree with the assessment and plan as stated above. Farzad Guajardo MD 04/14/17 1423: Discharge Instructions Date of Service Discharge date was changed to April 14 Dates of Hospitalization Discharge date was changed to April 14. This followed placement of dialysis catheter and dialysis on the and . Discharge Diagnosis Discharge Diagnosis No additional diagnoses. The patient's discharge was held 2 days for placement of dialysis catheter and to dialysis sessions 1 in the and 1 on the . Diet Discharge Diet: Diabetic Call your provider Call your provider for: Fever or Chills, Shortness of breath, Chest pain Patient Instructions Follow-up plan Next dialysis session will be [facility] at [facility] on Tuesday. Please call them to confirm time. Nehemias Lara MD Apr 12, 2017 08:37 Farzad Guajardo MD Apr 14, 2017 14:23
--- NOTE | 2017-04-14 14:31 | PCM.DC.MED ---
Discharge Summary Date of Service Apr 14, 2017 Dates of Hospitalization Date of Hospital Admission Apr 03, 2017 at 14:58 Date of Discharge: Apr 14, 2017 Providers: Admitting Physician: Artem Baron MD Primary Care Physician: Other,Physician Attending Physician: Farzad Guajardo MD Diagnosis at Time of Discharge Diagnosis at Time of Discharge No additional diagnoses. The patient's discharge was held 2 days for placement of dialysis catheter and to dialysis sessions 1 in the and 1 on the . Consultations Nephrology, Interventional radiology, Dr. Acosta Procedures XRay, CTs & MRIs . X-RAY CHEST ONE VIEW, PORTABLE IMPRESSION: 1. Pulmonary vascular prominence suggesting mild edema. Dictated by: Jeremie Feliciano M.D. on 04/03/2017 CT BRAIN WITHOUT CONTRAST IMPRESSION: 1. Markedly limited study due to motion artifact. 2. No definite acute intracranial abnormality. If clinical concern persists, consider a repeat study when clinically feasible. 3. Chronic white matter small vessel ischemic changes and cerebral volume loss. 4. Extensive thomas-sinus mucosal disease with air-fluid levels suggestive of acute sinusitis. Dictated by: Jeremie Feliciano M.D. on 04/03/2017 CT ABDOMEN AND PELVIS WITHOUT CONTRAST IMPRESSION: 1. No evidence of hydronephrosis. 2. Bilateral renal cortical thinning and extensive ossification of the renal arteries. 3. Bilateral renal cysts. 4. Small right lower lobe indeterminate pulmonary nodules. If clinically indicated, recommend followup dedicated chest CT in 6 months. 5. Mild bladder wall thickening suggesting a nonspecific cystitis or sequelae of chronic bladder outlet obstruction. Mild submucosal fat deposition is also noted in the bladder wall compatible with sequelae of prior inflammatory change. Dictated by: Jeremie Feliciano M.D. on 04/03/2017 ECG 12 Lead Atrial fibrillation Left anterior fascicular block No acute ST abnormalities Possible abnormal T wave pathology Cardiac Echo Impression Echocardiogram Report Name: ALONDRA FIGUEROA EStudy Date: 04/04/2017 Mazin t: 70 in Hospital Exam Location: [facility] Weigh t: 322 lb Gender: Male BSA: 2.5 m2 : 1940 Age: 76 yrs BP: 1 35/59 mmHg Reason For Study: Congestive Heart Failure, CAD, SEPSIS Ordering Physician: Shade Lawist Performed By: Siddharth Ram Referring Physician: JOYCELYN KIM Interpretation Summary The left ventricle is mild-moderately dilated. The ejection fraction is estimated to be 15-20%. Compared to the prior exam, the left ventricular function is reduced. The right ventricle is moderately dilated. Right ventricular systolic function is mild to moderately reduced. There is severe mitral regurgitation. Compared to the prior echo study, there has been an increase in the severity of mitral regurgitation. There is moderate tricuspid regurgitation. Compared to the prior echo exam, there has been an increase in TR severity. The right ventricular systolic pressure is estimated at 49 mmHg assuming a right atrial pressure of 8 mm Hg. Compared to the prior echo exam, there has been an increase in the severity of pulmonary hypertension. There is moderate pulmonary hypertension. Invasive Procedures Placement of dialysis catheter, right internal jugular Brief History Mr. Figueroa is a 76-year-old male with past medical history of chronic kidney disease, diabetes mellitus type II, hyperlipidemia, hypothyroidism, CAD status post triple bypass 2000, thrombocytopenia who presented to the ED via EMS secondary to decreased level of consciousness. Per who was present in the room at time of interview patient has been feeling weaker and sicker over the last month with a progressive decrease in his oral intake. During this time his diet has had to be transitioned to soft foods only which he either does not eat much of or vomits the meal back up. These episodes of emesis have only recently started in the last week but have gotten much worse over the last 3 days. reports patient has vomited 3 times per day over the last 3 days and has not been able to eat or drink anything, she states that the emesis looks brownish almost like "blood". He has also had decreased urinary output over the last month and significantly over the last 3 days, he has not taken any of his regular prescribed occasions including his diuretics. His urine is said to have a dark brown color at home. Patient's also states that he has become more "muddled" in his thought process he is able to answer most questions appropriately during interview though there is a significant time lapse between question and answer which patient's states is very unusual for him. He denies chest pain, shortness of breath, headache or visual disturbances. He does state some abdominal pain and persistent nausea. He has not had a bowel movement in 3 days though denies any diarrhea over the last month. Nephrology was counseled by ED physician, normal saline started as well as abdominal pelvis CT. Antibiotics were started for suspected UTI source. Patient was last seen by his preforms laminator Dr. Stearns one month ago. Does not know who his primary care physician is states he goes to the [place]. [facility] [place]. Hospital Course Mr. Figueroa is a 76-year-old male with past medical history of chronic kidney disease, diabetes mellitus type II, hyperlipidemia, hypothyroidism, CAD status post triple bypass 2000, thrombocytopenia who presented to the ED via EMS secondary to decreased level of consciousness, admitted for acute on chronic kidney injury with multiple electrolyte. Acute on chronic kidney injury. Present on admission. Ongoing. Acute deterioration Most likely secondary to dehydrated state, decreased oral intake and emesis. Dr. Arriaga nephrology consultation from ED, HD cath placement on 04/03, temporary dialysis initiated 04/04 then catheter discontinued on 04/09. The patient then improved to become uremic and down and volume overloaded resulting in placement of a tunneled catheter in the right internal jugular artery on the with dialysis on the and . Diabetes mellitus type II, present on admission and stable. Hemoglobin A1c 8.5% . He has been using NovoLin R 10-40 units 2 or 3 times per day when necessary, no basal insulin. Insulin choices are limited by [id number] costs and the [place] formulary, which does not support pending injectors or Lantus. He has a prescription for detemir 30 units twice a day which he has not been using. - He is currently being well managed on a regimen equivalent to Humulin 70/30 at 50 units every morning, and Humulin and 30 units at bedtime The patient's regimen was converted to detemir 30 units twice a day and he agrees FOR this. This also proved to be relatively simple regimen. Multifactorial Myopathy,Present on admission and active. Most likely secondary to uremia. Patient has truncal weakness and is unable to arise spontaneously from bed. - Continue physical therapy -Patient had very minor gains physical therapy and resulted in the necessity for a [facility] facility stay with physical therapy for ongoing treatment of his generalized weakness. Paroxysmal Atrial fibrillation. Present admission, and active. -This remained relatively stable throughout hospitalization. Anticoagulation for Paroxysmal atrial fibrillation, chronic. -Options for anticoagulation discussed with patient and family and he refuses anticoagulation due to risks of hemorrhage. Electrolyte abnormalities, present on admission and active -Nephrology following, These improved with dialysis. Urinary tract infection, present on admission. Resolved. -Culture shows gram-negative rods, likely Escherichia coli sensitivities pending -Completed 7 day course Possible upper GI bleed, present on admission and resolved. -Patient's reports 1-2 brown-colored emesis -No signs of bleeding -This will simply follow clinically Lactic acidosis, present on admission. Resolved -Likely secondary to dehydrated state as above -Resolved with fluid resuscitation Hyponatremia, present on admission. Resolved -Normal saline discontinued Hypothyroidism, present on admission. Ongoing -Continue home levothyroxine CODE STATUS: Patient is DNR/DNI discussed with patient and at bedside. Exam Vital Signs (Last) Date Time Temp Pulse Resp B/P Pulse Ox O2 Delivery O2 Flow Rate FiO2 04/14/17 14:16 36.6 73 18 135/77 97 Room Air Exam Was seen and examined on the day of discharge Test 04/03/17 12:30 04/03/17 13:00 04/03/17 17:15 04/03/17 18:53 Alcohols < 10mg/dL (0-10) Urine Color Yellow (YELLOW) Urine Appearance Turbid (CLEAR,HAZY) Urine pH 5.0 (5.0-8.0) Urine Specific [place] 1.025 (1.003-1.035) Urine Protein 100mg/dL (NEG,TRACE) Urine Glucose (UA) Negativemg/dL (NEGATIVE) Urine Ketones Tracemg/dL (NEGATIVE) Urine Occult Blood Large (NEGATIVE) Urine Nitrite Negative (NEGATIVE) Urine Bilirubin Negative (NEGATIVE) Urine Urobilinogen Normalmg/dL (NORMAL) Urine Leukocyte Esterase Moderate (NEGATIVE) Urine RBC 3-10/hpf (0-2) Urine WBC >50/hpf (0-5) Urine Epithelial Cells Moderate/hpf (NONE-MOD) Urine Crystals None seen (NONE SEEN) Urine Bacteria Many/hpf (NONE-FEW) Urine Hyaline Casts None/lpf (NONE) Urine Granular Casts None seen (NONE SEEN) Urine Waxy Casts None seen (NONE SEEN) Urine Red Blood Cell Casts None seen (NONE SEEN) Urine White Blood Cell Casts None seen (NONE SEEN) Urine Mucus None seen (None Seen) Urine Trichomonas None seen (NONE SEEN) Urine Yeast None (NONE SEEN) Urinalysis Comment None Urine Culture Reflexed Indicated Hemoglobin A1c 8.5% (4.8-5.6) Total Creatine Kinase 75U/L (21-232) Troponin T 0.097ug/L (0.0-0.011) Hepatitis B Surface Antigen Negative (Negative) Hepatitis B Surface Antibody Non reactive (.) Hepatitis B Core Total Antibody Negative (Negative) Hepatitis C Antibody <0.1s/co ratio (0.0-0.9) Test 04/04/17 13:30 04/05/17 03:00 04/05/17 09:35 04/06/17 02:30 Lactic Acid Level 1.3mmol/L (0.4-2.0) Magnesium Level 2.5mg/dL (1.6-2.6) Total Bilirubin 0.8mg/dL (0.0-1.2) Aspartate Amino Transf (AST/SGOT) 22U/L (0-50) Alanine Aminotransferase (ALT/SGPT) 10U/L (0-44) Alkaline Phosphatase 67U/L (25-160) Total Protein 6.6g/dL (6.4-8.4) Lipase 163U/L (13-60) Procalcitonin 0.59ng/mL (0.00-0.08) Ammonia 29ug/dL (18-53) Parathyroid Hormone (Intact) 79pg/mL (15-65) Test 04/12/17 08:00 04/13/17 03:40 04/13/17 13:55 Estimat Glomerular Filtration Rate 15mL/min (>59) White Blood Count 5.9th/mm3 (3.8-10.1) Red Blood Count 2.85mil/mm3 (4.40-5.80) Hemoglobin 9.6g/dL (13.8-17.2) Hematocrit 28.5% (41.0-50.0) Mean Corpuscular Volume 100.0fL (81-100) Mean Corpuscular Hemoglobin 33.7pg (27.0-35.0) Mean Corpuscular Hemoglobin Concent 33.7% (32.0-37.0) Red Cell Distribution Width 17.3% (12.3-15.4) Platelet Count 131bil/L (150-400) Neutrophils (%) (Auto) 67.9% (40-74) Lymphocytes (%) (Auto) 20.0% (14-46) Monocytes (%) (Auto) 10.5% (4-12) Eosinophils (%) (Auto) 0.8% (0-5) Basophils (%) (Auto) 0.3% (0-3) Prothrombin Time 12.7sec (8.1-12.5) Prothromb Time International Ratio 1.18ratio Sodium Level 134mEq/L (134-144) Potassium Level 4.8mEq/L (3.5-5.2) Chloride Level 98mEq/L (97-108) Carbon Dioxide Level 19mmol/L (18-29) Blood Urea Nitrogen 83mg/dL (8-27) Creatinine 4.21mg/dL (0.76-1.27) Glucose Level 148mg/dL (60-99) Calcium Level 8.4mg/dL (8.5-10.1) Phosphorus Level 3.5mg/dL (2.5-4.9) Albumin 2.6g/dL (3.4-5.0) Iron Level 59ug/dL (35-150) Total Iron Binding Capacity 197ug/dL (250-450) Percent Iron Saturation 30%sat (15-50) Unsaturated Iron Binding 137.5ug/dL Ferritin 380ng/mL (30-400) Vitamin B12 Level 1191pg/mL (211-946) Folate 16.7ng/mL (>3.0) Discharge Medications Discharge Medications Allopurinol (Allopurinol) 100 Mg Tablet 100 MG PO DAILY Prescribed by: JAEL CAMARENA MD Aspirin (Aspirin) 81 Mg Tablet 81 MG PO QAM (Reported) Carvedilol (Carvedilol) 25 Mg Tablet 25 MG PO QAM (Reported) CARVEDILOL 25 MG IN AM & 12.5 MG AT HS Carvedilol (Carvedilol) 12.5 Mg Tablet 12.5 MG PO HS (Reported) CARVEDILOL 25 MG IN AM & 12.5 MG AT HS Diltiazem (Diltiazem) 120 Mg Tablet 120 MG PO QAM (Reported) Furosemide (Furosemide) 40 Mg Tablet 120 MG PO QAM (Reported) LASIX 120 MG IN AM & 80 MG IN AFTERNOON Furosemide (Furosemide) 40 Mg Tablet 80 MG PO DAILYWD (Reported) LASIX 120 MG IN AM & 80 MG IN AFTERNOON Insulin Detemir (Levemir U100 Insulin Vial) 100 Unit/1 Ml Vial 30 UNIT SUBQ BID Morning and bedtime Prescribed by: JAEL CAMARENA MD Levothyroxine (Levothyroxine) 100 Mcg Tablet 100 MCG PO QAM (Reported) Multivitamin (Multi Vitamin Daily) 1 Each Tablet 1 EACH PO DAILYWD (Reported) [place]-3 Fatty Acids/Fish Oil (Fish Oil 1,200 mg Softgel) 1 Each Capsule 2 CAPSULE PO QAM (Reported) Pravastatin (Pravachol) 40 Mg Tab 40 MG PO HS (Reported) As needed Tramadol (Tramadol) 50 Mg Tablet 25 MG PO Q6H PRN PRN For Pain (Reported) Followup Plan Disposition: [facility] Follow-up Provider: Angelica Wilkerson MD Follow-up with PCP in: 1 week Time spent 60 minutes Farzad Guajardo MD Apr 14, 2017 14:31
--- NOTE | 2017-04-14 16:49 | NUR ---
Discharge Pt left to go to [facility] in [facility] via transport at 1645. was at the bedside and going to facility to make chayo he gets tucked in. IVx2 removed. Pt A&Ox3, vitals stable. Dressed in his own clothes and taking all his belongings with him. Report to be called to facility here soon.
== END 2017-04-14 16:49 | DRG 682 ==
LOC: EDBD 11:57 → SED 11:57 → PCC 14:58
PROVIDERS: ADMIT Internal Medicine; ATTEND Internal Medicine
PROC: 5A1D00Z (ICD-10-PCS; principal; 2017-04-03)
PROC: 02HV33Z Insertion of Infusion Device into Superior Vena Cava, Percutaneous Approach (ICD-10-PCS; 2017-04-03)
PROC: 5A1D00Z (ICD-10-PCS; 2017-04-04)
PROC: 5A1D00Z (ICD-10-PCS; 2017-04-05)
PROC: 5A1D00Z (ICD-10-PCS; 2017-04-13)
PROC: 02HV33Z Insertion of Infusion Device into Superior Vena Cava, Percutaneous Approach (ICD-10-PCS; 2017-04-13)
PROC: 5A1D00Z (ICD-10-PCS; 2017-04-14)
DX: N17.0 Acute kidney failure with tubular necrosis (principal); G93.40 Encephalopathy, unspecified; I13.2 Hypertensive heart and chronic kidney disease with heart failure and with stage 5 chronic kidney disease, or end stage renal disease; E87.1 Hypo-osmolality and hyponatremia; E87.2 Acidosis; N30.00 Acute cystitis without hematuria; I50.22 Chronic systolic (congestive) heart failure; K92.2 Gastrointestinal hemorrhage, unspecified; N18.6 End stage renal disease; E86.0 Dehydration; B96.20 Unspecified Escherichia coli [E. coli] as the cause of diseases classified elsewhere; B96.89 Other specified bacterial agents as the cause of diseases classified elsewhere; E11.21 Type 2 diabetes mellitus with diabetic nephropathy; Z79.4 Long term (current) use of insulin; Z99.2 Dependence on renal dialysis; G72.9 Myopathy, unspecified; E03.9 Hypothyroidism, unspecified; Z66 Do not resuscitate; E11.40 Type 2 diabetes mellitus with diabetic neuropathy, unspecified; I25.10 Atherosclerotic heart disease of native coronary artery without angina pectoris; Z95.1 Presence of aortocoronary bypass graft; D69.6 Thrombocytopenia, unspecified; Z87.891 Personal history of nicotine dependence; E87.5 Hyperkalemia; E83.39 Other disorders of phosphorus metabolism; I48.0 Paroxysmal atrial fibrillation; E11.65 Type 2 diabetes mellitus with hyperglycemia; D63.1 Anemia in chronic kidney disease